=== PATIENT | male | born 1945 | race Caucasian/White ===

== ENCOUNTER 2017-09-21 13:14 | Emergency (ER) | payer MEDICARE, BC ==
[~2017-09-21] VITALS: Ht 172.7 cm; Wt 82.0 kg
[~2017-09-21 13:14] MED LIST: 1-ME1LIQ PO; ACET325 PO; BISA10R PR; CLON.1 PO; DESE1CRE TOP; ELDES PO; ENOX40P SQ; FAMO20TA2 PO; FOLI1TAB PO; MEMA5 PO; METO25 PO; METR-1 PO; MULTTAB4 PO; POTA-53 PO; PROT40TA PO; TAMS.4 PO; THIA100T PO
[2017-09-21 13:24] VITALS: BP 104/60; PULSE 85; RESP 16; TEMP 99; O2SAT 95
[2017-09-21 14:16] LABS: BILIRUBIN, URINE NEG (NEG); BLOOD, URINE NEG (NEG); GLUCOSE,URINE NEG (NEG); KETONE, URINE TRACE mg/dL (NEG); NITRITE,URINE NEG (NEG); URINE COLOR YELLOW (YELLW/STRAW); URINE LEUKOCYTE ESTERASE TRACE (NEG)
[2017-09-21 15:41] VITALS: PULSE 80; RESP 18; O2SAT 97
[2017-09-21] MEDS ORDERED: CARB25TA9 PO (15:41)
[2017-09-21] MEDS ORDERED: SIMV20TA PO (15:41)
[2017-09-21] MEDS ORDERED: AMLO5TAB2 PO (15:41)
[2017-09-21] MEDS ORDERED: ROPI2TAB PO ×2 (15:41)
[2017-09-21] MEDS ORDERED: TAMS0.4C4 (15:41)
--- NOTE | 2017-09-21 16:10 | PD ---
HPI Chief Complaint: Complaint Time Seen by Provider: 15:33 Travel History International Travel<30 days: No Contact w/Intl Traveler<30days: No Traveled to known affect area: No History of Present Illness HPI The patient is a 72-year-old male who presents to the emergency department with his for lethargy and generalized weakness. The states the patient had an elevated PSA and was referred to a urologist. The patient saw urologist in [place] on and underwent a cystoscopy. The states the patient has had decreased appetite with increasing lethargy since . She states the patient has fallen several times at home and she has had difficulty getting the patient up off of the floor. The states the patient has had decreased oral intake, decreased ability to ambulate , and slight confusion. The patient does have a history of Parkinson's disease and early dementia. The patient is a somewhat limited historian, most of the history is obtained from the . The states he went to an urgent care earlier today but were directed to come to the emergency department for further evaluation. The patient denies any headache, neck pain, chest pain, shortness breath, nausea, vomiting, or abdominal pain. Symptoms are moderate per the 's report. PFSH Past Medical History Anemia: Yes Anxiety: Yes Cancer: No Cerebrovascular Accident: No Diabetes: Yes (TYPE 2) Patient Takes Glucophage: No Endocrine: Yes Gastrointestinal Disorders: Yes (UPPER GI BLEED, ALCOHOLIC LIVER) GERD: Yes Genitourinary: Yes (UTI, BPH) Hypertension: Yes Immune Disorder: No Musculoskeletal: No Neurologic: Yes (DELERIUM TREMORS, ALCOHOL WITHRADAL, ENCEPHALOPATHY) Parkinson's Disease: Yes Respiratory: Yes (PE) Migraines: No Seizures: No Past Surgical History Abdominal Surgery: Yes (HERNIA) Cardiac Surgery: No Ear Surgery: No Endocrine Surgery: No Eye Surgery: No Genitourinary Surgery: No Oral Surgery: No Social History Alcohol Use: Yes Tobacco Use: No Substance Use: No Allergies-Medications (Allergen,Severity, Reaction): Coded Allergies: penicillin G (Unverified Allergy, Severe, 11/20/16) Reported Meds & Prescriptions Reported Meds & Active Scripts Active Flagyl (Metronidazole) 500 Mg Tab 500 Mg PO Q8 14 Days Namenda (Memantine HCl) 5 Mg Tab 5 Mg PO DAILY 30 Days 5 mg po daily x 1 week, then increase to 5 mg po bid x 1 week, then increase to 10 mg po bid Reported Tamsulosin (Tamsulosin HCl) 0.4 Mg Cap 0.4 Mg DAILY Carbidopa-Levodopa 25-100 Mg Tab 1 Tab PO Q8HR Ropinirole 2 Mg Tab 2 Mg PO HS Ropinirole 2 Mg Tab 2 Mg PO ONCE Simvastatin 20 Mg Tab 20 Mg PO DAILY Amlodipine (Amlodipine Besylate) 5 Mg Tab 5 Mg PO DAILY Thiamine HCl 100 Mg Tab 100 Mg PO DAILY Tamsulosin HCl 0.4 Mg Cap 0.4 Mg PO DAILY Potassium Chloride Chloride Pow 20 Meq PO BID Protonix (Pantoprazole Sodium) 40 Mg Tabdr 40 Mg PO DAILY Multivitamins (Multiple Vitamin) Tab 1 Tab PO DAILY Metoprolol Tartrate 25 mg (Metoprolol Tartrate) 25 Mg Tab 25 Mg PO BID Folate (Folic Acid) 1 Mg Tab 1 Mg PO DAILY Famotidine 20 Mg Tab 20 Mg PO BID Lovenox (Enoxaparin Sodium) 40 Mg/0.4 Ml Inj 40 Mg SQ DAILY UNGRADUATED PREFILLED SYRINGE Eldertonic (Vitamin B Complex/Minerals) 480 Ml Elx 15 Ml PO TID Clotrimazole 1 % Cre 1 Applic TOP Q12 APPLY TO SACRUM, GROIN & PERIANAL AREAS Catapres 0.1 mg (Clonidine HCl) 0.1 Mg Tab 0.1 Mg PO Q6 PRN Dulcolax 10 Mg Supp (Bisacodyl) [address] DAILY PRN 1-Methyl 2-Pyrrolidinone (1-Methyl 2-Pyrrolidone (Bulk)) 10 Mg Tab 10 Mg PO DAILY Tylenol (Acetaminophen) 325 Mg Tab 650 Mg PO Q4H PRN Review of Systems Except as stated in HPI: all other systems reviewed are Neg General / Constitutional: No: Fever HENT: No: Lightheadedness Cardiovascular: No: Chest Pain or Discomfort Respiratory: No: Shortness of Breath Gastrointestinal: No: Nausea, Vomiting, Abdominal Pain Genitourinary: Positive: Other (Dark-colored urine), No: Dysuria Musculoskeletal: Positive: Weakness Neurologic: Positive: Weakness, Change in Mentation, Other (History of Parkinson's disease) Physical Exam Narrative GENERAL: Awake, alert, pleasant 72-year-old male who appears his stated age and is in no acute respiratory distress. SKIN: Focused skin assessment warm/dry. HEAD: Atraumatic. Normocephalic. EYES: Pupils equal and round. 3 mm bilateral and reactive. ENT: No nasal bleeding or discharge. Slightly dry mucous membranes. NECK: Trachea midline. No JVD. CARDIOVASCULAR: Regular rate and rhythm. No murmur appreciated. RESPIRATORY: No accessory muscle use. Clear to auscultation. Breath sounds equal bilaterally. GASTROINTESTINAL: Abdomen soft, non-tender, nondistended. No rebound tenderness. MUSCULOSKELETAL: No obvious deformities. No clubbing. No cyanosis. No edema. Flexes the left hip and left knee without difficulty, limited range of motion of flexion the right hip and knee, but good strength against resistance. NEUROLOGICAL: Awake and alert. No obvious cranial nerve deficits. Motor grossly within normal limits. Normal speech. Masked facies. Mild cogwheel rigidity right lower extremity. Oriented to person and . Back: No tenderness over the thoracic or lumbar vertebrae. PSYCHIATRIC: Appropriate mood and affect; insight and judgment normal. Data Data Last Documented VS Vital Signs Date Time Temp Pulse Resp B/P (MAP) Pulse Ox O2 Delivery O2 Flow Rate FiO2 09/21/17 17:48 72 18 129/62 (84) 95 Room Air 09/21/17 13:24 99.0 Orders Orders Urinalysis - C+S If Indicated (09/21/17 13:30) Complete Blood Count With Diff (09/21/17 16:03) Comprehensive Metabolic Panel (09/21/17 16:03) Creatine Kinase (Cpk) (09/21/17 16:03) Troponin I (09/21/17 16:03) Thyroid Stimulating Hormone (09/21/17 16:03) Chest, Single Ap (09/21/17 16:03) Ct Brain W/O Iv Contrast(Rout) (09/21/17 16:03) Blood Glucose (09/21/17 16:03) Ecg Monitoring (09/21/17 16:03) Iv Access Insert/Monitor (09/21/17 16:03) Oximetry (09/21/17 16:03) Sodium Chloride 0.9% Flush (Ns Flush) (09/21/17 16:15) Alcohol (Ethanol) (09/21/17 16:03) Sodium Chlorid 0.9% 500 Ml Inj (Ns 500 M (09/21/17 16:15) Pelvis, Ap Only (Routine) (09/21/17 ) Lactic Acid (09/21/17 16:13) Blood Culture (09/21/17 16:51) CKMB (09/21/17 16:25) CKMB% (09/21/17 16:25) Ed Discharge Order (09/21/17 18:16) Labs Laboratory Tests Test 09/21/17 13:30 09/21/17 16:25 Urine Color YELLOW Urine Turbidity CLEAR Urine pH 6.0 Urine Specific [place] 1.010 Urine Protein NEG mg/dL Urine Glucose (UA) NEG mg/dL Urine Ketones TRACE mg/dL Urine Occult Blood NEG Urine Nitrite NEG Urine Bilirubin NEG Urine Urobilinogen LESS THAN 2 mg/dL Urine Leukocyte Esterase TRACE Urine RBC LESS THAN 1 /hpf Urine WBC 5 /hpf Microscopic Urinalysis Comment CULT NOT INDICATED White Blood Count 22.3 TH/MM3 Red Blood Count 5.21 MIL/MM3 Hemoglobin 15.5 GM/DL Hematocrit 46.4 % Mean Corpuscular Volume 89.1 FL Mean Corpuscular Hemoglobin 29.8 PG Mean Corpuscular Hemoglobin Concent 33.5 % Red Cell Distribution Width 13.7 % Platelet Count 301 TH/MM3 Mean Platelet Volume 8.1 FL Neutrophils (%) (Auto) 80.0 % Lymphocytes (%) (Auto) 8.0 % Monocytes (%) (Auto) 11.2 % Eosinophils (%) (Auto) 0.2 % Basophils (%) (Auto) 0.6 % Neutrophils # (Auto) 17.9 TH/MM3 Lymphocytes # (Auto) 1.8 TH/MM3 Monocytes # (Auto) 2.5 TH/MM3 Eosinophils # (Auto) 0.1 TH/MM3 Basophils # (Auto) 0.1 TH/MM3 CBC Comment AUTO DIFF Differential Comment AUTO DIFF CONFIRMED Blood Urea Nitrogen 10 MG/DL Creatinine 1.16 MG/DL Random Glucose 98 MG/DL Total Protein 8.1 GM/DL Albumin 3.9 GM/DL Calcium Level 8.9 MG/DL Alkaline Phosphatase 77 U/L Aspartate Amino Transf (AST/SGOT) 37 U/L Alanine Aminotransferase (ALT/SGPT) 14 U/L Total Bilirubin 1.6 MG/DL Sodium Level 132 MEQ/L Potassium Level 3.9 MEQ/L Chloride Level 97 MEQ/L Carbon Dioxide Level 23.7 MEQ/L Anion Gap 11 MEQ/L Estimat Glomerular Filtration Rate 62 ML/MIN Lactic Acid Level 1.7 mmol/L Total Creatine Kinase 547 U/L Creatine Kinase MB 2.2 NG/ML Creatine Kinase MB % 0.4 % Troponin I LESS THAN 0.02 NG/ML Thyroid Stimulating Hormone 3rd Gen 1.870 uIU/ML Ethyl Alcohol Level LESS THAN 3 MG/DL MDM Medical Decision Making Medical Screen Exam Complete: Yes Emergency Medical Condition: Yes Medical Record Reviewed: Yes Interpretation(s) EKG reveals normal sinus rhythm with a rate 82. Inverted T-wave in lead III. Laboratory Tests Test 09/21/17 13:30 09/21/17 16:25 Urine Color YELLOW Urine Turbidity CLEAR Urine pH 6.0 Urine Specific [place] 1.010 Urine Protein NEG mg/dL Urine Glucose (UA) NEG mg/dL Urine Ketones TRACE mg/dL Urine Occult Blood NEG Urine Nitrite NEG Urine Bilirubin NEG Urine Urobilinogen LESS THAN 2 mg/dL Urine Leukocyte Esterase TRACE Urine RBC LESS THAN 1 /hpf Urine WBC 5 /hpf Microscopic Urinalysis Comment CULT NOT INDICATED White Blood Count 22.3 TH/MM3 Red Blood Count 5.21 MIL/MM3 Hemoglobin 15.5 GM/DL Hematocrit 46.4 % Mean Corpuscular Volume 89.1 FL Mean Corpuscular Hemoglobin 29.8 PG Mean Corpuscular Hemoglobin Concent 33.5 % Red Cell Distribution Width 13.7 % Platelet Count 301 TH/MM3 Mean Platelet Volume 8.1 FL Neutrophils (%) (Auto) 80.0 % Lymphocytes (%) (Auto) 8.0 % Monocytes (%) (Auto) 11.2 % Eosinophils (%) (Auto) 0.2 % Basophils (%) (Auto) 0.6 % Neutrophils # (Auto) 17.9 TH/MM3 Lymphocytes # (Auto) 1.8 TH/MM3 Monocytes # (Auto) 2.5 TH/MM3 Eosinophils # (Auto) 0.1 TH/MM3 Basophils # (Auto) 0.1 TH/MM3 CBC Comment AUTO DIFF Differential Comment AUTO DIFF CONFIRMED Blood Urea Nitrogen 10 MG/DL Creatinine 1.16 MG/DL Random Glucose 98 MG/DL Total Protein 8.1 GM/DL Albumin 3.9 GM/DL Calcium Level 8.9 MG/DL Alkaline Phosphatase 77 U/L Aspartate Amino Transf (AST/SGOT) 37 U/L Alanine Aminotransferase (ALT/SGPT) 14 U/L Total Bilirubin 1.6 MG/DL Sodium Level 132 MEQ/L Potassium Level 3.9 MEQ/L Chloride Level 97 MEQ/L Carbon Dioxide Level 23.7 MEQ/L Anion Gap 11 MEQ/L Estimat Glomerular Filtration Rate 62 ML/MIN Lactic Acid Level 1.7 mmol/L Total Creatine Kinase 547 U/L Creatine Kinase MB 2.2 NG/ML Creatine Kinase MB % 0.4 % Troponin I LESS THAN 0.02 NG/ML Thyroid Stimulating Hormone 3rd Gen 1.870 uIU/ML Ethyl Alcohol Level LESS THAN 3 MG/DL Differential Diagnosis Differential diagnosis includes UTI, delirium, acute kidney injury, dehydration , anesthesia side effect, subdural hemorrhage, pelvic fracture, hyponatremia. Narrative Course IV was established, labs are drawn and sent, and the patient was placed on cardiac telemetry monitoring and continuous pulse oximetry monitoring. UA was sent to lab, unremarkable, no evidence of UTI. The patient's white count is mildly elevated at 22.3, lactic acid is unremarkable. CMP is essentially unremarkable except for sodium of 132. Chest x-ray is negative, no evidence of pneumonia. Pelvic x-rays unremarkable, no evidence of fracture. CT the brain is negative, no evidence of subdural. The patient's vitals are unremarkable, no fever, no tachycardia, exam is benign. Cultures are pending, the patient is stable for outpatient follow-up. The will be provided a copy of the labs and CT results at discharge. Diagnosis Primary Impression: Generalized weakness Additional Impression: Leukocytosis Qualified Codes: D72.829 - Elevated white blood cell count, unspecified Patient Instructions: General Instructions Additional Instructions: Follow-up with your primary physician. Please provide the patient and his a copy of the CT results, x-ray results, and lab results at discharge. Return if symptoms worsen or progress. Med/Other Pt SpecificInfo: Prescription(s) given, No Change to Meds Disposition: 01 DISCHARGE HOME Condition: Stable Morales Lim MD Sep 21, 2017 16:09
[2017-09-21] MEDS ORDERED: SODIUM CHLORID 0.9% 500 ML INJ 500 ML IV ONE (16:15)
[2017-09-21] MEDS ORDERED: SODIUM CHLORIDE 0.9% FLUSH 10 ML FLUSH IV FLUSH PRN (16:15)
[2017-09-21 16:22] VITALS: RESP 14; O2SAT 95
--- NOTE | 2017-09-21 16:33 | RADRPT ---
EXAM DATE: 09/21/2017 4:30 PM EDT AGE/SEX: 72 years / Male INDICATIONS: Pain from fall on right hip. CLINICAL DATA: This is the patient's initial encounter. Patient reports that signs and symptoms have been present for 1 day and indicates a pain score of Nonresponsive. MEDICAL/SURGICAL HISTORY: Non-responsive. Non-responsive. COMPARISON: No prior exams available for comparison. FINDINGS: Examination of the pelvis demonstrates no evidence of fracture or dislocation. Bony mineralization i s normal. There is no widening of the sacroiliac joints. No foreign body is identified. CONCLUSION: No acute findings. Mild osteoarthritis of the hips. Electronically signed by: Estuardo Swift MD 09/21/2017 4:32 PM EDT
--- NOTE | 2017-09-21 16:33 | RADRPT ---
EXAM DATE: 09/21/2017 4:29 PM EDT AGE/SEX: 72 years / Male INDICATIONS: Shortness of breath. CLINICAL DATA: This is the patient's initial encounter. Patient reports that signs and symptoms have been present for 1 day and indicates a pain score of Nonresponsive. MEDICAL/SURGICAL HISTORY: Non-responsive. Non-responsive. COMPARISON: [facility] [place], CHEST SINGLE AP, 08/30/2014. . FINDINGS: A single AP view of the chest demonstrates the lungs to be symmetrically aerated without evidence of mass, infiltrate or effusion. Mild basilar atelectasis. The cardiomediastinal contours are unremarkab le. Osseous structures are intact. CONCLUSION: Mild basilar atelectasis. No effusion or pneumothorax. Electronically signed by: Estuardo Swift MD 09/21/2017 4:31 PM EDT
[2017-09-21 16:47] LABS: AUTOMATED NEUTROPHIL # 17.9 TH/MM3 (1.8-7.7); BASOPHIL # 0.1 TH/MM3 (0-0.2); BASOPHIL % 0.6 % (0.0-2.0); EOSINOPHIL # 0.1 TH/MM3 (0-0.4); EOSINOPHIL % 0.2 % (0.0-4.0); HEMATOCRIT 46.4 % (39.0-51.0); HEMOGLOBIN 15.5 GM/DL (13.0-17.0); LYMPHOCYTE # 1.8 TH/MM3 (1.0-4.8); MEAN CELL VOLUME 89.1 FL (80.0-100.0); MEAN CORPUSCULAR HEMOGLOBIN 29.8 PG (27.0-34.0); MEAN CORPUSCULAR HGB CONC 33.5 % (32.0-36.0); MEAN PLATELET VOLUME 8.1 FL (7.0-11.0); MONO % 11.2 % (0.0-8.0); MONOCYTE # 2.5 TH/MM3 (0-0.9); PLATELET COUNT 301 TH/MM3 (150-450); RED BLOOD COUNT 5.21 MIL/MM3 (4.50-5.90); RED CELL DISTRIBUTION WIDTH 13.7 % (11.6-17.2); WHITE BLOOD COUNT 22.3 TH/MM3 (4.0-11.0)
[2017-09-21 17:07] LABS: ALBUMIN 3.9 GM/DL (3.4-5.0); ALT (GPT) 14 U/L (12-78); AST (GOT) 37 U/L (15-37); BICARBONATE 23.7 MEQ/L (21.0-32.0); BLOOD UREA NITROGEN 10 MG/DL (7-18); CALCIUM 8.9 MG/DL (8.5-10.1); CHLORIDE 97 MEQ/L (98-107); CREATININE 1.16 MG/DL (0.60-1.30); GLOMERULAR FILTRATION RATE 62 ML/MIN (>89); GLUCOSE,RANDOM 98 MG/DL (74-106); SODIUM (NA) 132 MEQ/L (136-145)
[2017-09-21 17:17] LABS: ALKALINE PHOSPHATASE 77 U/L (45-117); TOTAL BILIRUBIN ADULT 1.6 MG/DL (0.2-1.0); TOTAL PROTEIN 8.1 GM/DL (6.4-8.2); TROPONIN I LESS THAN 0.02 NG/ML (0.02-0.05)
[2017-09-21 17:48] VITALS: BP 129/62; PULSE 72; RESP 18; O2SAT 95
--- NOTE | 2017-09-21 17:58 | RADRPT ---
EXAM DATE: 09/21/2017 5:43 PM EDT AGE/SEX: 72 years / Male INDICATIONS: Patient with Parkinson, new loss of appetite and inability to walk CLINICAL DATA: This is the patient's initial encounter. Patient reports that signs and symptoms have been present for 1 day and indicates a pain score of 0/10. MEDICAL/SURGICAL HISTORY: Hypertension. Diabetes. None. RADIATION DOSE: 40.52 CTDI (mGy) COMPARISON: . TECHNIQUE: CT of the head without contrast. Using automated exposure control and adjustment of the mA and/or kV according to patient size, radiation dose was kept as low as reasonably achievable to ob tain optimal diagnostic quality images. FINDINGS: Cerebrum: The ventricles are normal for age. No evidence of midline shift, mass lesion, hemorrhage or acute infarction. No extraaxial fluid collections are seen. Posterior Fossa: The cerebellum and brainstem are intact. The 4th ventricle is midline. The cerebe llopontine angle is unremarkable. Extracranial: The visualized portion of the orbits is intact. Skull: The calvaria is intact. No evidence of skull fracture. CONCLUSION: 1. No acute intracranial abnormality. Electronically signed by: Estuardo Swift MD 09/21/2017 5:57 PM EDT
--- NOTE | 2017-09-22 14:00 | EKG ---
Date Performed: 09/21/2017 Time Performed: 14:40:10 PTAGE: 72 years EKG: Sinus rhythm MARKED LEFT AXIS DEVIATION ABNORMAL ECG PREVIOUS TRACING : 08/30/2014 09.00 Since the previous tracing, no significant change noted DOCTOR: Humza Lockhart Interpretating Date/Time 09/22/2017 13:54:43
== END 2017-09-21 19:42 | disposition home or self-care (01) ==
LOC: NEPC 13:14
DX: R53.1 Weakness (principal); D72.829 Elevated white blood cell count, unspecified; D64.9 Anemia, unspecified; R94.31 Abnormal electrocardiogram [ECG] [EKG]; M16.11 Unilateral primary osteoarthritis, right hip; E11.9 Type 2 diabetes mellitus without complications; K21.9 Gastro-esophageal reflux disease without esophagitis; N40.0 Benign prostatic hyperplasia without lower urinary tract symptoms; I10 Essential (primary) hypertension; G20 Parkinson's disease; Z87.440 Personal history of urinary (tract) infections; Z79.899 Other long term (current) drug therapy; Z88.0 Allergy status to penicillin
CPT/HCPCS: 70450; 71045; 72170; 80053; 80307; 81001; 82550; 82552; 83605; 84443; 84484; 85025; 87040; 93005; 96360; 99285; J7040

== ENCOUNTER 2018-02-02 00:33 | Inpatient (IN) ==
[2018-02-02] MEDS ORDERED: Acetaminophen 325 MG Tablet PO ONE (01:30)
[2018-02-02] MEDS ORDERED: Sod Chloride 0.9% Inj 1,000 ML IV.SIG SCH ×2 (01:30→02:15)
--- NOTE | 2018-02-02 01:59 | ED ---
HPI General Chief complaint: Respiratory Symptoms Stated complaint: Sob Time Seen by Provider: 02/02/18 01:12 Source: family Mode of arrival: wheelchair Limitations: other (Parkinson's) History of Present Illness HPI narrative: 73-year-old male with significant history of Parkinson's was recently diagnosed with prostate cancer. Last Saturday which was 5 days ago patient had seeds put in his prostate by his urologist at [place]. Yesterday from 6 PM onwards his noticed that he was having difficulty walking and was frequently urinating. There was no urinary incontinence and his had to get him the urinal. Eventually she decided to bring him to the emergency room. The is having trouble giving a good history due to possibility of dementia. Patient is not a good historian given his neurological issues. He was tachycardic upon arrival. He was tachypneic as well. Rectal temperature was 102.8. The was concerned if he got infection from the procedure. She said that prior to the procedure he had received 2 doses of antibiotics. Onset (ago): hour(s) Related Data Home Medications Medication Instructions Recorded Confirmed amlodipine 5 mg PO DAILY 02/02/18 02/02/18 carbidopa-levodopa 1 tab PO TID 02/02/18 02/02/18 ropinirole 2 mg PO TID 02/02/18 02/02/18 simvastatin 20 mg PO QPM 02/02/18 02/02/18 tamsulosin 0.4 mg PO BID 02/02/18 02/02/18 Allergies Allergy/AdvReac Type Severity Reaction Status Date / Time penicillin G Allergy Severe Hives Unverified 02/02/18 00:38 Review of Systems ROS Unobtainable ROS Unobtainable: unobtainable due to mental condition ROS: all other systems reviewed are negative Genitourinary Reports urinary frequency [facility] Medical History Medical History Parkinsons (Acute) Social History Social History Substance History: No History of Abuse Second Hand Smoke Exposure: No Smoking Status: Never smoker How Often Do You Have a Drink Containing Alcohol: Never Recent Travel in [facility] within the Last 8 Weeks: No Recent Out of Country Travel within the Last 8 Weeks: No Immunization History Tetanus Immunization: Unsure Exam Narrative Exam Narrative: GENERAL: Awake, moderate distress, trouble speaking SKIN: Focused skin assessment warm/dry. Flushed HEAD: Atraumatic. Normocephalic. EYES: Pupils equal and round. No scleral icterus. No injection or drainage. ENT: No nasal bleeding or discharge. Mucous membranes pink and moist. NECK: Trachea midline. No JVD. CARDIOVASCULAR: Regular rate and rhythm. No murmur appreciated. RESPIRATORY: No accessory muscle use. Clear to auscultation. Breath sounds equal bilaterally. GASTROINTESTINAL: Abdomen soft, non-tender, nondistended. Hepatic and splenic margins not palpable. MUSCULOSKELETAL: No obvious deformities. No clubbing. No cyanosis. No edema. NEUROLOGICAL: Awake and alert. No obvious cranial nerve deficits. Motor rigidity. Stuttering and echolalia. PSYCHIATRIC: Appropriate mood and affect; insight and judgment normal. Course Initial Documented Vital Signs Temperature 98.2 F 02/02/18 00:34 Pulse Rate 125 H 02/02/18 00:34 Respiratory Rate 30 H 02/02/18 00:34 Pulse Oximetry 99 02/02/18 00:34 Last Documented Vital Signs Temperature 97.4 F L 02/05/18 20:00 Pulse Rate 76 02/05/18 20:00 Respiratory Rate 17 02/05/18 20:00 Blood Pressure 161/65 H 02/05/18 20:00 Pulse Oximetry 96 02/05/18 20:00 Critical Care Time Critical Care Time: Yes Total Critical Care Time: 30 Attestation: Aggregate critical care time was 30 minutes. Time to perform other separately billable procedures was not included in the critical care time. My time did not include minutes spent treating any other patients simultaneously or on activities that did not directly contribute to the patient's treatment. The services I provided to this patient were to treat and/or prevent clinically significant deterioration that could result in: Sepsis, sepsis care protocol I provided critical care services requiring my management, as noted below: Chart data review, documentation time, medication orders and management, vital sign assessments/reviewing monitor data, ordering and reviewing lab tests, ordering and interpreting/reviewing x-rays and diagnostic studies, care of the patient and discussion of the patient with the admitting physicians. Medical Decision Making MDM Narrative Medical decision making narrative: 3:25 AM blood test results are back and patient has leukocytosis with left shift. Lactic acid is 2.0. UA suggestive of UTI. Patient was given 2 L of IV fluid bolus, Tylenol for the fever and IV Zosyn and vancomycin. Awaiting for a CAT scan of the abdomen and pelvis to be resulted. Patient will require admission. Medical Screen Exam Complete: Yes Emergency Medical Condition: Yes Lab Data Result diagrams: 02/05/18 09:32 02/05/18 09:32 Lab Results 02/02/18 02/02/18 02/02/18 Range/Units 01:35 01:44 01:44 WBC 16.2 H (4.0-11.0) th/mm3 RBC 5.41 (4.50-5.90) mil/mm3 Hgb 17.1 H (13.0-17.0) gm/dL Hct 48.5 (39.0-51.0) % MCV 89.7 (80.0-100.0) fL MCH 31.7 (27.0-34.0) pg MCHC 35.3 (32.0-36.0) % RDW 14.3 (11.6-17.2) % Plt Count 270 (150-450) th/mm3 MPV 8.0 (7.0-11.0) fL Neut % (Auto) 88.6 H (16.0-70.0) % Lymph % (Auto) 5.7 L (9.0-44.0) % Randall % (Auto) 5.2 (0.0-8.0) % Eos % (Auto) 0.1 (0.0-4.0) % Baso % (Auto) 0.4 (0.0-2.0) % Neut # (Auto) 14.3 H (1.8-7.7) th/mm3 Lymph # (Auto) 0.9 L (1.0-4.8) th/mm3 Randall # (Auto) 0.8 (0.0-0.9) th/mm3 Eos # (Auto) 0.0 (0.0-0.4) th/mm3 Baso # (Auto) 0.1 (0.0-0.2) th/mm3 WBC Differential . Differential Comment Auto diff final Puncture Site Patient Temperature O2 Saturation (90-100) % ABG pH (7.380-7.420) ABG pCO2 (38-42) mmHg ABG pO2 (61-120) mmHg ABG HCO3 (22-26) mmol/L ABG O2 Content (12.0-20.0) Vol % ABG Base Excess (-2-2) mmol/L ABG Methemoglobin (0-2) % [place] Test Hemoglobin (12.0-16.0) G/DL Carboxyhemoglobin (0-4) % O2 Delivery Device Liter Flow L/M Critical Value Sodium (136-145) meq/L Potassium (3.5-5.1) meq/L Chloride (98-107) meq/L Carbon Dioxide (21.0-32.0) meq/L Anion Gap (5-15) meq/L BUN (7-18) mg/dL Creatinine (0.60-1.30) mg/dL Estimated GFR (>89) mL/min POC Glucose (68-110) mg/dl Random Glucose (74-106) mg/dL Hemoglobin A1c (4.3-6.0) % Lactic Acid 2.0 (0.4-2.0) mmol/L Calcium (8.5-10.1) mg/dL Magnesium (1.5-2.5) mg/dL Total Bilirubin (0.2-1.0) mg/dL AST (15-37) U/L ALT (12-78) U/L Alkaline Phosphatase (45-117) U/L Ammonia (11-32) mcmol/L Total Creatine Kinase (39-308) U/L CK-MB (CK-2) (0.5-3.6) ng/mL CK-MB (CK-2) % (0.0-4.0) % Total Protein (6.4-8.2) g/dL Albumin (3.4-5.0) g/dL Vitamin B12 (193-986) pg/mL TSH (0.358-3.740) uIU/mL Urine Color Yellow (Yellw/Straw) Urine Clarity Hazy H (Clear) Urine pH 6.0 (5.0-8.5) Ur Specific [place] 1.012 (1.002-1.035) Urine Protein Negative (Neg-Trace) mg/dL Urine Glucose (UA) Negative (Negative) mg/dL Urine Ketones Negative (Negative) mg/dL Urine Occult Blood Large H (Negative) Urine Nitrate Negative (Negative) Urine Bilirubin Negative (Negative) Urine Urobilinogen Less than 2 (Less than 2) mg/dL Ur Leukocyte Esterase Moderate H (Negative) Urine RBC 4 H (0-3) /hpf Urine WBC 88 H (0-5) /hpf Ur Renal Epithelial Cell 11 (None) /hpf Granular Casts (None) /lpf Urine Mucus Few H (Occasional) /lpf Micro UA Comment Culture indicated Ur Microscopic Review Not Reportable Urine Culture Comments Culture indicated Vancomycin Trough (5.0-10.0) mcg/mL 02/02/18 02/02/18 02/02/18 Range/Units 01:44 02:14 04:21 WBC (4.0-11.0) th/mm3 RBC (4.50-5.90) mil/mm3 Hgb (13.0-17.0) gm/dL Hct (39.0-51.0) % MCV (80.0-100.0) fL MCH (27.0-34.0) pg MCHC (32.0-36.0) % RDW (11.6-17.2) % Plt Count (150-450) th/mm3 MPV (7.0-11.0) fL Neut % (Auto) (16.0-70.0) % Lymph % (Auto) (9.0-44.0) % Randall % (Auto) (0.0-8.0) % Eos % (Auto) (0.0-4.0) % Baso % (Auto) (0.0-2.0) % Neut # (Auto) (1.8-7.7) th/mm3 Lymph # (Auto) (1.0-4.8) th/mm3 Randall # (Auto) (0.0-0.9) th/mm3 Eos # (Auto) (0.0-0.4) th/mm3 Baso # (Auto) (0.0-0.2) th/mm3 WBC Differential Differential Comment Puncture Site Patient Temperature O2 Saturation (90-100) % ABG pH (7.380-7.420) ABG pCO2 (38-42) mmHg ABG pO2 (61-120) mmHg ABG HCO3 (22-26) mmol/L ABG O2 Content (12.0-20.0) Vol % ABG Base Excess (-2-2) mmol/L ABG Methemoglobin (0-2) % [place] Test Hemoglobin (12.0-16.0) G/DL Carboxyhemoglobin (0-4) % O2 Delivery Device Liter Flow L/M Critical Value Sodium 138 (136-145) meq/L Potassium 3.8 (3.5-5.1) meq/L Chloride 107 (98-107) meq/L Carbon Dioxide 22.4 (21.0-32.0) meq/L Anion Gap 9 (5-15) meq/L BUN 13 (7-18) mg/dL Creatinine 1.00 (0.60-1.30) mg/dL Estimated GFR 74 L (>89) mL/min POC Glucose 128 H (68-110) mg/dl Random Glucose 107 H (74-106) mg/dL Hemoglobin A1c 6.0 (4.3-6.0) % Lactic Acid (0.4-2.0) mmol/L Calcium 8.3 L (8.5-10.1) mg/dL Magnesium 1.7 (1.5-2.5) mg/dL Total Bilirubin 1.1 H (0.2-1.0) mg/dL AST 28 (15-37) U/L ALT 33 (12-78) U/L Alkaline Phosphatase 73 (45-117) U/L Ammonia (11-32) mcmol/L Total Creatine Kinase (39-308) U/L CK-MB (CK-2) (0.5-3.6) ng/mL CK-MB (CK-2) % (0.0-4.0) % Total Protein 7.2 (6.4-8.2) g/dL Albumin 3.7 (3.4-5.0) g/dL Vitamin B12 (193-986) pg/mL TSH (0.358-3.740) uIU/mL Urine Color (Yellw/Straw) Urine Clarity (Clear) Urine pH (5.0-8.5) Ur Specific [place] (1.002-1.035) Urine Protein (Neg-Trace) mg/dL Urine Glucose (UA) (Negative) mg/dL Urine Ketones (Negative) mg/dL Urine Occult Blood (Negative) Urine Nitrate (Negative) Urine Bilirubin (Negative) Urine Urobilinogen (Less than 2) mg/dL Ur Leukocyte Esterase (Negative) Urine RBC (0-3) /hpf Urine WBC (0-5) /hpf Ur Renal Epithelial Cell (None) /hpf Granular Casts (None) /lpf Urine Mucus (Occasional) /lpf Micro UA Comment Ur Microscopic Review Urine Culture Comments Vancomycin Trough (5.0-10.0) mcg/mL 02/02/18 02/02/18 02/02/18 Range/Units 12:10 18:06 19:37 WBC (4.0-11.0) th/mm3 RBC (4.50-5.90) mil/mm3 Hgb (13.0-17.0) gm/dL Hct (39.0-51.0) % MCV (80.0-100.0) fL MCH (27.0-34.0) pg MCHC (32.0-36.0) % RDW (11.6-17.2) % Plt Count (150-450) th/mm3 MPV (7.0-11.0) fL Neut % (Auto) (16.0-70.0) % Lymph % (Auto) (9.0-44.0) % Randall % (Auto) (0.0-8.0) % Eos % (Auto) (0.0-4.0) % Baso % (Auto) (0.0-2.0) % Neut # (Auto) (1.8-7.7) th/mm3 Lymph # (Auto) (1.0-4.8) th/mm3 Randall # (Auto) (0.0-0.9) th/mm3 Eos # (Auto) (0.0-0.4) th/mm3 Baso # (Auto) (0.0-0.2) th/mm3 WBC Differential Differential Comment Puncture Site Patient Temperature O2 Saturation (90-100) % ABG pH (7.380-7.420) ABG pCO2 (38-42) mmHg ABG pO2 (61-120) mmHg ABG HCO3 (22-26) mmol/L ABG O2 Content (12.0-20.0) Vol % ABG Base Excess (-2-2) mmol/L ABG Methemoglobin (0-2) % [place] Test Hemoglobin (12.0-16.0) G/DL Carboxyhemoglobin (0-4) % O2 Delivery Device Liter Flow L/M Critical Value Sodium (136-145) meq/L Potassium (3.5-5.1) meq/L Chloride (98-107) meq/L Carbon Dioxide (21.0-32.0) meq/L Anion Gap (5-15) meq/L BUN (7-18) mg/dL Creatinine (0.60-1.30) mg/dL Estimated GFR (>89) mL/min POC Glucose 108 119 H 120 H (68-110) mg/dl Random Glucose (74-106) mg/dL Hemoglobin A1c (4.3-6.0) % Lactic Acid (0.4-2.0) mmol/L Calcium (8.5-10.1) mg/dL Magnesium (1.5-2.5) mg/dL Total Bilirubin (0.2-1.0) mg/dL AST (15-37) U/L ALT (12-78) U/L Alkaline Phosphatase (45-117) U/L Ammonia (11-32) mcmol/L Total Creatine Kinase (39-308) U/L CK-MB (CK-2) (0.5-3.6) ng/mL CK-MB (CK-2) % (0.0-4.0) % Total Protein (6.4-8.2) g/dL Albumin (3.4-5.0) g/dL Vitamin B12 (193-986) pg/mL TSH (0.358-3.740) uIU/mL Urine Color (Yellw/Straw) Urine Clarity (Clear) Urine pH (5.0-8.5) Ur Specific [place] (1.002-1.035) Urine Protein (Neg-Trace) mg/dL Urine Glucose (UA) (Negative) mg/dL Urine Ketones (Negative) mg/dL Urine Occult Blood (Negative) Urine Nitrate (Negative) Urine Bilirubin (Negative) Urine Urobilinogen (Less than 2) mg/dL Ur Leukocyte Esterase (Negative) Urine RBC (0-3) /hpf Urine WBC (0-5) /hpf Ur Renal Epithelial Cell (None) /hpf Granular Casts (None) /lpf Urine Mucus (Occasional) /lpf Micro UA Comment Ur Microscopic Review Urine Culture Comments Vancomycin Trough (5.0-10.0) mcg/mL 02/03/18 02/03/18 02/03/18 Range/Units 06:25 06:25 08:43 WBC 12.2 H (4.0-11.0) th/mm3 RBC 4.85 (4.50-5.90) mil/mm3 Hgb 15.3 (13.0-17.0) gm/dL Hct 44.6 (39.0-51.0) % MCV 92.0 (80.0-100.0) fL MCH 31.5 (27.0-34.0) pg MCHC 34.2 (32.0-36.0) % RDW 14.2 (11.6-17.2) % Plt Count 236 (150-450) th/mm3 MPV 7.5 (7.0-11.0) fL Neut % (Auto) 76.9 H (16.0-70.0) % Lymph % (Auto) 9.7 (9.0-44.0) % Randall % (Auto) 12.4 H (0.0-8.0) % Eos % (Auto) 0.3 (0.0-4.0) % Baso % (Auto) 0.7 (0.0-2.0) % Neut # (Auto) 9.4 H (1.8-7.7) th/mm3 Lymph # (Auto) 1.2 (1.0-4.8) th/mm3 Randall # (Auto) 1.5 H (0.0-0.9) th/mm3 Eos # (Auto) 0.0 (0.0-0.4) th/mm3 Baso # (Auto) 0.1 (0.0-0.2) th/mm3 WBC Differential . Differential Comment Auto diff final Puncture Site Patient Temperature O2 Saturation (90-100) % ABG pH (7.380-7.420) ABG pCO2 (38-42) mmHg ABG pO2 (61-120) mmHg ABG HCO3 (22-26) mmol/L ABG O2 Content (12.0-20.0) Vol % ABG Base Excess (-2-2) mmol/L ABG Methemoglobin (0-2) % [place] Test Hemoglobin (12.0-16.0) G/DL Carboxyhemoglobin (0-4) % O2 Delivery Device Liter Flow L/M Critical Value Sodium 139 (136-145) meq/L Potassium 3.7 (3.5-5.1) meq/L Chloride 109 H (98-107) meq/L Carbon Dioxide 20.3 L (21.0-32.0) meq/L Anion Gap 10 (5-15) meq/L BUN 11 (7-18) mg/dL Creatinine 0.89 (0.60-1.30) mg/dL Estimated GFR 84 L (>89) mL/min POC Glucose 94 (68-110) mg/dl Random Glucose 89 (74-106) mg/dL Hemoglobin A1c (4.3-6.0) % Lactic Acid (0.4-2.0) mmol/L Calcium 8.4 L (8.5-10.1) mg/dL Magnesium (1.5-2.5) mg/dL Total Bilirubin (0.2-1.0) mg/dL AST (15-37) U/L ALT (12-78) U/L Alkaline Phosphatase (45-117) U/L Ammonia (11-32) mcmol/L Total Creatine Kinase (39-308) U/L CK-MB (CK-2) (0.5-3.6) ng/mL CK-MB (CK-2) % (0.0-4.0) % Total Protein (6.4-8.2) g/dL Albumin (3.4-5.0) g/dL Vitamin B12 (193-986) pg/mL TSH (0.358-3.740) uIU/mL Urine Color (Yellw/Straw) Urine Clarity (Clear) Urine pH (5.0-8.5) Ur Specific [place] (1.002-1.035) Urine Protein (Neg-Trace) mg/dL Urine Glucose (UA) (Negative) mg/dL Urine Ketones (Negative) mg/dL Urine Occult Blood (Negative) Urine Nitrate (Negative) Urine Bilirubin (Negative) Urine Urobilinogen (Less than 2) mg/dL Ur Leukocyte Esterase (Negative) Urine RBC (0-3) /hpf Urine WBC (0-5) /hpf Ur Renal Epithelial Cell (None) /hpf Granular Casts (None) /lpf Urine Mucus (Occasional) /lpf Micro UA Comment Ur Microscopic Review Urine Culture Comments Vancomycin Trough (5.0-10.0) mcg/mL 02/03/18 02/03/18 02/03/18 Range/Units 12:16 17:00 19:59 WBC (4.0-11.0) th/mm3 RBC (4.50-5.90) mil/mm3 Hgb (13.0-17.0) gm/dL Hct (39.0-51.0) % MCV (80.0-100.0) fL MCH (27.0-34.0) pg MCHC (32.0-36.0) % RDW (11.6-17.2) % Plt Count (150-450) th/mm3 MPV (7.0-11.0) fL Neut % (Auto) (16.0-70.0) % Lymph % (Auto) (9.0-44.0) % Randall % (Auto) (0.0-8.0) % Eos % (Auto) (0.0-4.0) % Baso % (Auto) (0.0-2.0) % Neut # (Auto) (1.8-7.7) th/mm3 Lymph # (Auto) (1.0-4.8) th/mm3 Randall # (Auto) (0.0-0.9) th/mm3 Eos # (Auto) (0.0-0.4) th/mm3 Baso # (Auto) (0.0-0.2) th/mm3 WBC Differential Differential Comment Puncture Site Patient Temperature O2 Saturation (90-100) % ABG pH (7.380-7.420) ABG pCO2 (38-42) mmHg ABG pO2 (61-120) mmHg ABG HCO3 (22-26) mmol/L ABG O2 Content (12.0-20.0) Vol % ABG Base Excess (-2-2) mmol/L ABG Methemoglobin (0-2) % [place] Test Hemoglobin (12.0-16.0) G/DL Carboxyhemoglobin (0-4) % O2 Delivery Device Liter Flow L/M Critical Value Sodium (136-145) meq/L Potassium (3.5-5.1) meq/L Chloride (98-107) meq/L Carbon Dioxide (21.0-32.0) meq/L Anion Gap (5-15) meq/L BUN (7-18) mg/dL Creatinine (0.60-1.30) mg/dL Estimated GFR (>89) mL/min POC Glucose 116 H 107 135 H (68-110) mg/dl Random Glucose (74-106) mg/dL Hemoglobin A1c (4.3-6.0) % Lactic Acid (0.4-2.0) mmol/L Calcium (8.5-10.1) mg/dL Magnesium (1.5-2.5) mg/dL Total Bilirubin (0.2-1.0) mg/dL AST (15-37) U/L ALT (12-78) U/L Alkaline Phosphatase (45-117) U/L Ammonia (11-32) mcmol/L Total Creatine Kinase (39-308) U/L CK-MB (CK-2) (0.5-3.6) ng/mL CK-MB (CK-2) % (0.0-4.0) % Total Protein (6.4-8.2) g/dL Albumin (3.4-5.0) g/dL Vitamin B12 (193-986) pg/mL TSH (0.358-3.740) uIU/mL Urine Color (Yellw/Straw) Urine Clarity (Clear) Urine pH (5.0-8.5) Ur Specific [place] (1.002-1.035) Urine Protein (Neg-Trace) mg/dL Urine Glucose (UA) (Negative) mg/dL Urine Ketones (Negative) mg/dL Urine Occult Blood (Negative) Urine Nitrate (Negative) Urine Bilirubin (Negative) Urine Urobilinogen (Less than 2) mg/dL Ur Leukocyte Esterase (Negative) Urine RBC (0-3) /hpf Urine WBC (0-5) /hpf Ur Renal Epithelial Cell (None) /hpf Granular Casts (None) /lpf Urine Mucus (Occasional) /lpf Micro UA Comment Ur Microscopic Review Urine Culture Comments Vancomycin Trough (5.0-10.0) mcg/mL 02/04/18 02/04/18 02/04/18 Range/Units 07:22 07:50 14:46 WBC (4.0-11.0) th/mm3 RBC (4.50-5.90) mil/mm3 Hgb (13.0-17.0) gm/dL Hct (39.0-51.0) % MCV (80.0-100.0) fL MCH (27.0-34.0) pg MCHC (32.0-36.0) % RDW (11.6-17.2) % Plt Count (150-450) th/mm3 MPV (7.0-11.0) fL Neut % (Auto) (16.0-70.0) % Lymph % (Auto) (9.0-44.0) % Randall % (Auto) (0.0-8.0) % Eos % (Auto) (0.0-4.0) % Baso % (Auto) (0.0-2.0) % Neut # (Auto) (1.8-7.7) th/mm3 Lymph # (Auto) (1.0-4.8) th/mm3 Randall # (Auto) (0.0-0.9) th/mm3 Eos # (Auto) (0.0-0.4) th/mm3 Baso # (Auto) (0.0-0.2) th/mm3 WBC Differential Differential Comment Puncture Site Patient Temperature O2 Saturation (90-100) % ABG pH (7.380-7.420) ABG pCO2 (38-42) mmHg ABG pO2 (61-120) mmHg ABG HCO3 (22-26) mmol/L ABG O2 Content (12.0-20.0) Vol % ABG Base Excess (-2-2) mmol/L ABG Methemoglobin (0-2) % [place] Test Hemoglobin (12.0-16.0) G/DL Carboxyhemoglobin (0-4) % O2 Delivery Device Liter Flow L/M Critical Value Sodium (136-145) meq/L Potassium (3.5-5.1) meq/L Chloride (98-107) meq/L Carbon Dioxide (21.0-32.0) meq/L Anion Gap (5-15) meq/L BUN (7-18) mg/dL Creatinine (0.60-1.30) mg/dL Estimated GFR (>89) mL/min POC Glucose 101 (68-110) mg/dl Random Glucose (74-106) mg/dL Hemoglobin A1c (4.3-6.0) % Lactic Acid (0.4-2.0) mmol/L Calcium (8.5-10.1) mg/dL Magnesium (1.5-2.5) mg/dL Total Bilirubin (0.2-1.0) mg/dL AST (15-37) U/L ALT (12-78) U/L Alkaline Phosphatase (45-117) U/L Ammonia 17 (11-32) mcmol/L Total Creatine Kinase (39-308) U/L CK-MB (CK-2) (0.5-3.6) ng/mL CK-MB (CK-2) % (0.0-4.0) % Total Protein (6.4-8.2) g/dL Albumin (3.4-5.0) g/dL Vitamin B12 (193-986) pg/mL TSH (0.358-3.740) uIU/mL Urine Color (Yellw/Straw) Urine Clarity (Clear) Urine pH (5.0-8.5) Ur Specific [place] (1.002-1.035) Urine Protein (Neg-Trace) mg/dL Urine Glucose (UA) (Negative) mg/dL Urine Ketones (Negative) mg/dL Urine Occult Blood (Negative) Urine Nitrate (Negative) Urine Bilirubin (Negative) Urine Urobilinogen (Less than 2) mg/dL Ur Leukocyte Esterase (Negative) Urine RBC (0-3) /hpf Urine WBC (0-5) /hpf Ur Renal Epithelial Cell (None) /hpf Granular Casts (None) /lpf Urine Mucus (Occasional) /lpf Micro UA Comment Ur Microscopic Review Urine Culture Comments Vancomycin Trough 1.5 L (5.0-10.0) mcg/mL 02/04/18 02/04/18 02/04/18 Range/Units 14:46 14:46 17:12 WBC 9.0 (4.0-11.0) th/mm3 RBC 5.20 (4.50-5.90) mil/mm3 Hgb 16.0 (13.0-17.0) gm/dL Hct 48.0 (39.0-51.0) % MCV 92.3 (80.0-100.0) fL MCH 30.7 (27.0-34.0) pg MCHC 33.3 (32.0-36.0) % RDW 14.4 (11.6-17.2) % Plt Count 261 (150-450) th/mm3 MPV 7.1 (7.0-11.0) fL Neut % (Auto) (16.0-70.0) % Lymph % (Auto) (9.0-44.0) % Randall % (Auto) (0.0-8.0) % Eos % (Auto) (0.0-4.0) % Baso % (Auto) (0.0-2.0) % Neut # (Auto) (1.8-7.7) th/mm3 Lymph # (Auto) (1.0-4.8) th/mm3 Randall # (Auto) (0.0-0.9) th/mm3 Eos # (Auto) (0.0-0.4) th/mm3 Baso # (Auto) (0.0-0.2) th/mm3 WBC Differential Differential Comment Puncture Site Patient Temperature O2 Saturation (90-100) % ABG pH (7.380-7.420) ABG pCO2 (38-42) mmHg ABG pO2 (61-120) mmHg ABG HCO3 (22-26) mmol/L ABG O2 Content (12.0-20.0) Vol % ABG Base Excess (-2-2) mmol/L ABG Methemoglobin (0-2) % [place] Test Hemoglobin (12.0-16.0) G/DL Carboxyhemoglobin (0-4) % O2 Delivery Device Liter Flow L/M Critical Value Sodium 140 (136-145) meq/L Potassium 3.7 (3.5-5.1) meq/L Chloride 107 (98-107) meq/L Carbon Dioxide 21.0 (21.0-32.0) meq/L Anion Gap 12 (5-15) meq/L BUN 15 (7-18) mg/dL Creatinine 1.00 (0.60-1.30) mg/dL Estimated GFR 74 L (>89) mL/min POC Glucose 105 (68-110) mg/dl Random Glucose 143 H (74-106) mg/dL Hemoglobin A1c (4.3-6.0) % Lactic Acid (0.4-2.0) mmol/L Calcium 8.6 (8.5-10.1) mg/dL Magnesium (1.5-2.5) mg/dL Total Bilirubin (0.2-1.0) mg/dL AST (15-37) U/L ALT (12-78) U/L Alkaline Phosphatase (45-117) U/L Ammonia (11-32) mcmol/L Total Creatine Kinase (39-308) U/L CK-MB (CK-2) (0.5-3.6) ng/mL CK-MB (CK-2) % (0.0-4.0) % Total Protein (6.4-8.2) g/dL Albumin (3.4-5.0) g/dL Vitamin B12 (193-986) pg/mL TSH (0.358-3.740) uIU/mL Urine Color (Yellw/Straw) Urine Clarity (Clear) Urine pH (5.0-8.5) Ur Specific [place] (1.002-1.035) Urine Protein (Neg-Trace) mg/dL Urine Glucose (UA) (Negative) mg/dL Urine Ketones (Negative) mg/dL Urine Occult Blood (Negative) Urine Nitrate (Negative) Urine Bilirubin (Negative) Urine Urobilinogen (Less than 2) mg/dL Ur Leukocyte Esterase (Negative) Urine RBC (0-3) /hpf Urine WBC (0-5) /hpf Ur Renal Epithelial Cell (None) /hpf Granular Casts (None) /lpf Urine Mucus (Occasional) /lpf Micro UA Comment Ur Microscopic Review Urine Culture Comments Vancomycin Trough (5.0-10.0) mcg/mL 02/04/18 02/04/18 02/04/18 Range/Units 21:03 21:57 23:20 WBC (4.0-11.0) th/mm3 RBC (4.50-5.90) mil/mm3 Hgb (13.0-17.0) gm/dL Hct (39.0-51.0) % MCV (80.0-100.0) fL MCH (27.0-34.0) pg MCHC (32.0-36.0) % RDW (11.6-17.2) % Plt Count (150-450) th/mm3 MPV (7.0-11.0) fL Neut % (Auto) (16.0-70.0) % Lymph % (Auto) (9.0-44.0) % Randall % (Auto) (0.0-8.0) % Eos % (Auto) (0.0-4.0) % Baso % (Auto) (0.0-2.0) % Neut # (Auto) (1.8-7.7) th/mm3 Lymph # (Auto) (1.0-4.8) th/mm3 Randall # (Auto) (0.0-0.9) th/mm3 Eos # (Auto) (0.0-0.4) th/mm3 Baso # (Auto) (0.0-0.2) th/mm3 WBC Differential Differential Comment Puncture Site Patient Temperature O2 Saturation (90-100) % ABG pH (7.380-7.420) ABG pCO2 (38-42) mmHg ABG pO2 (61-120) mmHg ABG HCO3 (22-26) mmol/L ABG O2 Content (12.0-20.0) Vol % ABG Base Excess (-2-2) mmol/L ABG Methemoglobin (0-2) % [place] Test Hemoglobin (12.0-16.0) G/DL Carboxyhemoglobin (0-4) % O2 Delivery Device Liter Flow L/M Critical Value Sodium (136-145) meq/L Potassium (3.5-5.1) meq/L Chloride (98-107) meq/L Carbon Dioxide (21.0-32.0) meq/L Anion Gap (5-15) meq/L BUN (7-18) mg/dL Creatinine (0.60-1.30) mg/dL Estimated GFR (>89) mL/min POC Glucose 117 H 119 H (68-110) mg/dl Random Glucose (74-106) mg/dL Hemoglobin A1c (4.3-6.0) % Lactic Acid 2.0 (0.4-2.0) mmol/L Calcium (8.5-10.1) mg/dL Magnesium (1.5-2.5) mg/dL Total Bilirubin (0.2-1.0) mg/dL AST (15-37) U/L ALT (12-78) U/L Alkaline Phosphatase (45-117) U/L Ammonia (11-32) mcmol/L Total Creatine Kinase (39-308) U/L CK-MB (CK-2) (0.5-3.6) ng/mL CK-MB (CK-2) % (0.0-4.0) % Total Protein (6.4-8.2) g/dL Albumin (3.4-5.0) g/dL Vitamin B12 (193-986) pg/mL TSH (0.358-3.740) uIU/mL Urine Color (Yellw/Straw) Urine Clarity (Clear) Urine pH (5.0-8.5) Ur Specific [place] (1.002-1.035) Urine Protein (Neg-Trace) mg/dL Urine Glucose (UA) (Negative) mg/dL Urine Ketones (Negative) mg/dL Urine Occult Blood (Negative) Urine Nitrate (Negative) Urine Bilirubin (Negative) Urine Urobilinogen (Less than 2) mg/dL Ur Leukocyte Esterase (Negative) Urine RBC (0-3) /hpf Urine WBC (0-5) /hpf Ur Renal Epithelial Cell (None) /hpf Granular Casts (None) /lpf Urine Mucus (Occasional) /lpf Micro UA Comment Ur Microscopic Review Urine Culture Comments Vancomycin Trough (5.0-10.0) mcg/mL 02/04/18 02/05/18 02/05/18 Range/Units 23:20 00:10 07:44 WBC (4.0-11.0) th/mm3 RBC (4.50-5.90) mil/mm3 Hgb (13.0-17.0) gm/dL Hct (39.0-51.0) % MCV (80.0-100.0) fL MCH (27.0-34.0) pg MCHC (32.0-36.0) % RDW (11.6-17.2) % Plt Count (150-450) th/mm3 MPV (7.0-11.0) fL Neut % (Auto) (16.0-70.0) % Lymph % (Auto) (9.0-44.0) % Randall % (Auto) (0.0-8.0) % Eos % (Auto) (0.0-4.0) % Baso % (Auto) (0.0-2.0) % Neut # (Auto) (1.8-7.7) th/mm3 Lymph # (Auto) (1.0-4.8) th/mm3 Randall # (Auto) (0.0-0.9) th/mm3 Eos # (Auto) (0.0-0.4) th/mm3 Baso # (Auto) (0.0-0.2) th/mm3 WBC Differential Differential Comment Puncture Site Right radial Patient Temperature 98.6 O2 Saturation 95 (90-100) % ABG pH 7.37 L (7.380-7.420) ABG pCO2 41 (38-42) mmHg ABG pO2 82 (61-120) mmHg ABG HCO3 23 (22-26) mmol/L ABG O2 Content 21.2 H (12.0-20.0) Vol % ABG Base Excess -1.2 (-2-2) mmol/L ABG Methemoglobin 0.5 (0-2) % [place] Test Present Hemoglobin 15.9 (12.0-16.0) G/DL Carboxyhemoglobin 0.7 (0-4) % O2 Delivery Device Nasal cannula Liter Flow 2.00 L/M Critical Value No Sodium (136-145) meq/L Potassium (3.5-5.1) meq/L Chloride (98-107) meq/L Carbon Dioxide (21.0-32.0) meq/L Anion Gap (5-15) meq/L BUN (7-18) mg/dL Creatinine (0.60-1.30) mg/dL Estimated GFR (>89) mL/min POC Glucose 81 (68-110) mg/dl Random Glucose (74-106) mg/dL Hemoglobin A1c (4.3-6.0) % Lactic Acid (0.4-2.0) mmol/L Calcium (8.5-10.1) mg/dL Magnesium (1.5-2.5) mg/dL Total Bilirubin (0.2-1.0) mg/dL AST (15-37) U/L ALT (12-78) U/L Alkaline Phosphatase (45-117) U/L Ammonia (11-32) mcmol/L Total Creatine Kinase 1413 H (39-308) U/L CK-MB (CK-2) 15.6 H (0.5-3.6) ng/mL CK-MB (CK-2) % 1.1 (0.0-4.0) % Total Protein (6.4-8.2) g/dL Albumin (3.4-5.0) g/dL Vitamin B12 (193-986) pg/mL TSH (0.358-3.740) uIU/mL Urine Color (Yellw/Straw) Urine Clarity (Clear) Urine pH (5.0-8.5) Ur Specific [place] (1.002-1.035) Urine Protein (Neg-Trace) mg/dL Urine Glucose (UA) (Negative) mg/dL Urine Ketones (Negative) mg/dL Urine Occult Blood (Negative) Urine Nitrate (Negative) Urine Bilirubin (Negative) Urine Urobilinogen (Less than 2) mg/dL Ur Leukocyte Esterase (Negative) Urine RBC (0-3) /hpf Urine WBC (0-5) /hpf Ur Renal Epithelial Cell (None) /hpf Granular Casts (None) /lpf Urine Mucus (Occasional) /lpf Micro UA Comment Ur Microscopic Review Urine Culture Comments Vancomycin Trough (5.0-10.0) mcg/mL 02/05/18 02/05/18 02/05/18 Range/Units 09:32 09:32 09:32 WBC 8.4 (4.0-11.0) th/mm3 RBC 4.95 (4.50-5.90) mil/mm3 Hgb 15.5 (13.0-17.0) gm/dL Hct 44.9 (39.0-51.0) % MCV 90.7 (80.0-100.0) fL MCH 31.3 (27.0-34.0) pg MCHC 34.6 (32.0-36.0) % RDW 14.1 (11.6-17.2) % Plt Count 279 (150-450) th/mm3 MPV 6.9 L (7.0-11.0) fL Neut % (Auto) (16.0-70.0) % Lymph % (Auto) (9.0-44.0) % Randall % (Auto) (0.0-8.0) % Eos % (Auto) (0.0-4.0) % Baso % (Auto) (0.0-2.0) % Neut # (Auto) (1.8-7.7) th/mm3 Lymph # (Auto) (1.0-4.8) th/mm3 Randall # (Auto) (0.0-0.9) th/mm3 Eos # (Auto) (0.0-0.4) th/mm3 Baso # (Auto) (0.0-0.2) th/mm3 WBC Differential Differential Comment Puncture Site Patient Temperature O2 Saturation (90-100) % ABG pH (7.380-7.420) ABG pCO2 (38-42) mmHg ABG pO2 (61-120) mmHg ABG HCO3 (22-26) mmol/L ABG O2 Content (12.0-20.0) Vol % ABG Base Excess (-2-2) mmol/L ABG Methemoglobin (0-2) % [place] Test Hemoglobin (12.0-16.0) G/DL Carboxyhemoglobin (0-4) % O2 Delivery Device Liter Flow L/M Critical Value Sodium 143 (136-145) meq/L Potassium 3.2 L (3.5-5.1) meq/L Chloride 108 H (98-107) meq/L Carbon Dioxide 23.6 (21.0-32.0) meq/L Anion Gap 11 (5-15) meq/L BUN 17 (7-18) mg/dL Creatinine 0.87 (0.60-1.30) mg/dL Estimated GFR 87 L (>89) mL/min POC Glucose (68-110) mg/dl Random Glucose 78 (74-106) mg/dL Hemoglobin A1c (4.3-6.0) % Lactic Acid (0.4-2.0) mmol/L Calcium 8.6 (8.5-10.1) mg/dL Magnesium (1.5-2.5) mg/dL Total Bilirubin (0.2-1.0) mg/dL AST (15-37) U/L ALT (12-78) U/L Alkaline Phosphatase (45-117) U/L Ammonia (11-32) mcmol/L Total Creatine Kinase (39-308) U/L CK-MB (CK-2) (0.5-3.6) ng/mL CK-MB (CK-2) % (0.0-4.0) % Total Protein (6.4-8.2) g/dL Albumin (3.4-5.0) g/dL Vitamin B12 399 (193-986) pg/mL TSH (0.358-3.740) uIU/mL Urine Color (Yellw/Straw) Urine Clarity (Clear) Urine pH (5.0-8.5) Ur Specific [place] (1.002-1.035) Urine Protein (Neg-Trace) mg/dL Urine Glucose (UA) (Negative) mg/dL Urine Ketones (Negative) mg/dL Urine Occult Blood (Negative) Urine Nitrate (Negative) Urine Bilirubin (Negative) Urine Urobilinogen (Less than 2) mg/dL Ur Leukocyte Esterase (Negative) Urine RBC (0-3) /hpf Urine WBC (0-5) /hpf Ur Renal Epithelial Cell (None) /hpf Granular Casts (None) /lpf Urine Mucus (Occasional) /lpf Micro UA Comment Ur Microscopic Review Urine Culture Comments Vancomycin Trough (5.0-10.0) mcg/mL 02/05/18 02/05/18 02/05/18 Range/Units 09:32 12:04 15:15 WBC (4.0-11.0) th/mm3 RBC (4.50-5.90) mil/mm3 Hgb (13.0-17.0) gm/dL Hct (39.0-51.0) % MCV (80.0-100.0) fL MCH (27.0-34.0) pg MCHC (32.0-36.0) % RDW (11.6-17.2) % Plt Count (150-450) th/mm3 MPV (7.0-11.0) fL Neut % (Auto) (16.0-70.0) % Lymph % (Auto) (9.0-44.0) % Randall % (Auto) (0.0-8.0) % Eos % (Auto) (0.0-4.0) % Baso % (Auto) (0.0-2.0) % Neut # (Auto) (1.8-7.7) th/mm3 Lymph # (Auto) (1.0-4.8) th/mm3 Randall # (Auto) (0.0-0.9) th/mm3 Eos # (Auto) (0.0-0.4) th/mm3 Baso # (Auto) (0.0-0.2) th/mm3 WBC Differential Differential Comment Puncture Site Patient Temperature O2 Saturation (90-100) % ABG pH (7.380-7.420) ABG pCO2 (38-42) mmHg ABG pO2 (61-120) mmHg ABG HCO3 (22-26) mmol/L ABG O2 Content (12.0-20.0) Vol % ABG Base Excess (-2-2) mmol/L ABG Methemoglobin (0-2) % [place] Test Hemoglobin (12.0-16.0) G/DL Carboxyhemoglobin (0-4) % O2 Delivery Device Liter Flow L/M Critical Value Sodium (136-145) meq/L Potassium (3.5-5.1) meq/L Chloride (98-107) meq/L Carbon Dioxide (21.0-32.0) meq/L Anion Gap (5-15) meq/L BUN (7-18) mg/dL Creatinine (0.60-1.30) mg/dL Estimated GFR (>89) mL/min POC Glucose 79 (68-110) mg/dl Random Glucose (74-106) mg/dL Hemoglobin A1c (4.3-6.0) % Lactic Acid (0.4-2.0) mmol/L Calcium (8.5-10.1) mg/dL Magnesium (1.5-2.5) mg/dL Total Bilirubin (0.2-1.0) mg/dL AST (15-37) U/L ALT (12-78) U/L Alkaline Phosphatase (45-117) U/L Ammonia (11-32) mcmol/L Total Creatine Kinase (39-308) U/L CK-MB (CK-2) (0.5-3.6) ng/mL CK-MB (CK-2) % (0.0-4.0) % Total Protein (6.4-8.2) g/dL Albumin (3.4-5.0) g/dL Vitamin B12 (193-986) pg/mL TSH 5.000 H (0.358-3.740) uIU/mL Urine Color Yellow (Yellw/Straw) Urine Clarity Clear (Clear) Urine pH 5.0 (5.0-8.5) Ur Specific [place] 1.028 (1.002-1.035) Urine Protein Negative (Neg-Trace) mg/dL Urine Glucose (UA) Negative (Negative) mg/dL Urine Ketones 20 (Negative) mg/dL Urine Occult Blood Small H (Negative) Urine Nitrate Negative (Negative) Urine Bilirubin Negative (Negative) Urine Urobilinogen Less than 2 (Less than 2) mg/dL Ur Leukocyte Esterase Trace H (Negative) Urine RBC 10 H (0-3) /hpf Urine WBC 7 H (0-5) /hpf Ur Renal Epithelial Cell (None) /hpf Granular Casts 1 (None) /lpf Urine Mucus Few H (Occasional) /lpf Micro UA Comment Culture not ind Ur Microscopic Review Not Reportable Urine Culture Comments Culture not ind Vancomycin Trough (5.0-10.0) mcg/mL Imaging Data Radiologist's impression: Abdomen/Pelvis CT 02/02/18 01:30 CONCLUSION: 1. Fat-containing left inguinal hernia. 2. Mild prostate enlargement with metallic localization seeds. Chest X-Ray 02/02/18 01:30 CONCLUSION: The appearance of the lungs is similar to September 2017 with some mild bilateral perihilar thickening. No peripheral infiltrates seen. Head CT 02/04/18 22:20 CONCLUSION: No acute intracranial abnormality demonstrated. . Head MRI 02/05/18 00:00 CONCLUSION: 1. No acute hemorrhage, mass or stroke. ECG Data Attestation: I personally reviewed and interpreted this ECG as follows: Interpretation: Twelve-lead EKG was reviewed by me. Normal sinus rhythm, left axis deviation, tachycardia, motion artifact. Heart rate of 107 bpm. Discharge Plan Discharge Disposition Patient Disposition: 30 Still Patient Physicians Team ED Provider: Lakhwinder Mace Primary Care Provider: Wiley Cotto Attending Provider: Pilar Freeman Other Providers: Geovanny Cordero ; Rodríguez Agudelo ; [email or web address] ; [facility]Ag[facility] ; Eulogio Jones Status ED Status: Left Department Discharge Information Discharge Date/Time: 02/02/18 05:22
[2018-02-02 02:01] LABS: Baso # (Auto) 0.1 th/mm3 (0.0-0.2); Baso % (Auto) 0.4 % (0.0-2.0); Eos % (Auto) 0.1 % (0.0-4.0); Hematocrit 48.5 % (39.0-51.0); Hemoglobin 17.1 gm/dL (13.0-17.0); Lymph # (Auto) 0.9 th/mm3 (1.0-4.8); Lymph % (Auto) 5.7 % (9.0-44.0); Mean Corpuscular HGB Conc 35.3 % (32.0-36.0); Mean Corpuscular Hemoglobin 31.7 pg (27.0-34.0); Mean Corpuscular Volume 89.7 fL (80.0-100.0); Mono # (Auto) 0.8 th/mm3 (0.0-0.9); Mono % (Auto) 5.2 % (0.0-8.0); Neut # (Auto) 14.3 th/mm3 (1.8-7.7); Neut % (Auto) 88.6 % (16.0-70.0); Platelet Count 270 th/mm3 (150-450); Red Blood Count 5.41 mil/mm3 (4.50-5.90); Red Cell Distribution Width 14.3 % (11.6-17.2); White Blood Count 16.2 th/mm3 (4.0-11.0)
[2018-02-02] MEDS ORDERED: Aztreonam Inj 2 GM in Sodium Chloride 0.9% Inj 100 ML IV.SIG ONE (02:02)
[2018-02-02] MEDS ORDERED: Vancomycin Inj 1 GM/200 ML PIGGYBACK IV.SIG ONE (02:02)
[2018-02-02 02:03] LABS: Bilirubin,Urine Negative (Negative); Clarity,Urine Hazy (Clear); Color,Urine Yellow (Yellw/Straw); Glucose,Urine (UA) Negative (Negative); Leukocyte Esterase,Urine Moderate (Negative); Mucus,Urine Few /lpf (Occasional); Nitrite,Urine Negative (Negative); Renal Epithelial Cells,Urine 11 /hpf; Specific Gravity,Urine 1.012 (1.002-1.035)
--- NOTE | 2018-02-02 02:10 | XR ---
EXAM DATE: 02/02/2018 2:02 AM EDT AGE/SEX: 73 years / Male INDICATIONS: Fever today. Confusion. CLINICAL DATA: This is the patient's initial encounter. Patient reports that signs and symptoms have been present for 1 day and indicates a pain score of 0/10. MEDICAL/SURGICAL HISTORY: . Hypertension. Diabetes. Parkinsons None. COMPARISON: [facility] [place], CHEST SINGLE AP, 09/21/2017. [facility] [place], CHEST SINGLE AP, 08/30/2014. . FINDINGS: There is some peribronchial thickening in the perihilar region bilaterally, similar to prior examinat ion in September 2017. The heart is stable in size without cardiomegaly. Both hemidiaphragms well delineat ed. No focal areas of consolidation seen. CONCLUSION: The appearance of the lungs is similar to September 2017 with some mild bilateral perihilar thickening. No peripheral infiltrates seen. Electronically signed by: Colton Soto MD 02/02/2018 2:08 AM EDT
[2018-02-02] MEDS ORDERED: Vancomycin Inj 1,000 MG in Sodium Chlor 0.9% Inj 250 ML IV.SIG ONE (02:30)
[2018-02-02 02:33] LABS: Alanine Aminotransferase 33 U/L (12-78); Albumin 3.7 g/dL (3.4-5.0); Anion Gap 9 meq/L (5-15); Aspartate Aminotransferase 28 U/L (15-37); Blood Urea Nitrogen 13 mg/dL (7-18); Calcium 8.3 mg/dL (8.5-10.1); Carbon Dioxide 22.4 meq/L (21.0-32.0); Chloride 107 meq/L (98-107); Glomerular Filtration Rate 74 mL/min (>89); Glucose,Random 107 mg/dL (74-106); Magnesium 1.7 mg/dL (1.5-2.5); Potassium 3.8 meq/L (3.5-5.1); Sodium 138 meq/L (136-145)
[2018-02-02 02:41] LABS: Alkaline Phosphatase 73 U/L (45-117); Total Protein 7.2 g/dL (6.4-8.2)
--- NOTE | 2018-02-02 03:26 | CT ---
EXAM DATE: 02/02/2018 3:15 AM EDT AGE/SEX: 73 years / Male INDICATIONS: Abdomen pain with fever. CLINICAL DATA: This is the patient's initial encounter. Patient reports that signs and symptoms have been present for 1 day and indicates a pain score of 0/10. MEDICAL/SURGICAL HISTORY: Parkinson's disease. None. ORAL CONTRAST: No oral contrast ingested. RADIATION DOSE: 15.34 CTDI (mGy) COMPARISON: No prior exams available for comparison. TECHNIQUE: Multiple contiguous axial images were obtained through the abdomen and pelvis following b olus infusion of 97 ml Omnipaque 350 (iohexol) nonionic water-soluble contrast as a single exam dos e. No oral contrast ingested. Using automated exposure control and adjustment of the mA and/or kV ac cording to patient size, radiation dose was kept as low as reasonably achievable to obtain optimal di agnostic quality images. DICOM format image data is available electronically for review and comparis on. FINDINGS: Lower Lungs: The visualized lower lungs are clear. Liver: The liver has a homogeneous density without space-occupying lesion. There is no dilation of th e biliary tree. No calcified gallstones. Spleen: Homogeneous density without enlargement. Pancreas: Unremarkable without mass or calcification. Kidneys: Normal in size and shape. No evidence of mass or hydronephrosis. No calcified renal stones. Adrenal Glands: Unremarkable. Aorta: The aorta and proximal iliac vessels are grossly unremarkable without aneurysmal dilation. Bowel/Mesentery: No dilated loops of small or large bowel. No evidence of free fluid. Abdominal Wall: Intact. Retroperitoneum: No evidence of adenopathy in the retrocrural, para-aortic, or deep pelvic regions. Bladder: Contours are smooth. Reproductive Organs: Mildly enlarged prostate with metallic localization seeds within. Inguinal: Moderate size fat-containing left inguinal hernia. Bony Structures: Moderate degenerative changes in the posterior limbs of the lumbar spine. No lytic or sclerotic lesions seen. CONCLUSION: 1. Fat-containing left inguinal hernia. 2. Mild prostate enlargement with metallic localization seeds. Electronically signed by: Colton Soto MD 02/02/2018 3:24 AM EDT
[2018-02-02] MEDS ORDERED: Bisacodyl 10 MG Supp RECTAL PRN (04:10)
[2018-02-02] MEDS ORDERED: Vancomycin Consult Pharmacy OTHER PRN (04:27)
--- NOTE | 2018-02-02 04:36 | P.HPIM ---
History of Present Illness Primary Care Physician: Wiley Cotto MD History of Present Illness: 73-year-old male with a history of Parkinson's, hyperlipidemia, hypertension, prostate cancer and diet-controlled diabetes who was brought to the ED for evaluation of frequent urination and difficulty walking. Patient is a poor historian. History is taken from the who also may have underlying dementia. states on Saturday he had prostate seeds placed and his urologist and yesterday she noticed that he was having difficulty walking and having frequent urination. Patient does complain of dysuria and very frequent urination. Upon arrival patient was found to have a rectal temperature of 102.8. Inpatient Certification: I certify that the inpatient services were ordered in accordance with Medicare regulations governing the order. This includes certification that hospital inpatient services are reasonable and necessary and in the case of services not specified as inpatient-only under 42 CFR 419.22(n), that they are appropriately provided as inpatient services in accordance to with the 2-midnight benchmark under 43 CFR 412.3(e) Estimated Total Length of Stay (Days): 3 Plans for Post Hospital Care: Home Review of Systems All other systems reviewed negative except as stated in HPI PMFSH - History History Provided By: Patient - Medical History Medical History: Medical History (Last Reviewed 02/02/18 @ 04:09 by ALEXANDRO Rios) BPH (benign prostatic hyperplasia) Diabetes HLD (hyperlipidemia) HTN (hypertension) Parkinsons Prostate cancer - Surgical History Surgical History: Surgical History (Last Reviewed 02/02/18 @ 04:09 by ALEXANDRO Rios) H/O carpal tunnel repair H/O hernia repair - Family History Family History: Family History (Last Reviewed 02/02/18 @ 04:09 by ALEXANDRO Rios) Father Parkinson disease - Tobacco History Second Hand Smoke Exposure: No Smoking Status: Never smoker - Alcohol History How Often Do You Have a Drink Containing Alcohol: Never - Substance Use History Substance History: No History of Abuse - Travel History Recent Travel in the [place] Within the Last 8 Weeks: No Recent Travel Out of the Country Within the Last 8 Weeks: No - Immunization History Tetanus Immunization: Unsure Medications and Allergies Active Medications: Active Medications Al Hydroxide/Mg Hydroxide (Milk Of Magnesia Liq) 30 ml PO Q12H PRN PRN Reason: Mild Constipation Bisacodyl (Dulcolax Supp) 10 mg RECTAL DAILY PRN PRN Reason: SEVERE CONSITIPATION Heparin Sodium (Porcine) (Heparin Inj) 5,000 units SQ Q12H NOEMY Sodium Chloride (Ns Inj) 1,000 mls @ 0 mls/hr IV.SIG BOLUS NOEMY Last Infusion: 02/02/18 04:09 Dose: Infused Sodium Chloride (Ns Inj) 1,000 mls @ 0 mls/hr IV.SIG BOLUS NOEMY Last Infusion: 02/02/18 04:09 Dose: Infused Lactulose (Lactulose Liq) 30 ml PO DAILY PRN PRN Reason: SEVERE CONSITIPATION Ondansetron HCl (Zofran Inj) 4 mg IV.PUSH Q6H PRN PRN Reason: NAUSEA OR VOMITING Sennosides (Senokot) 17.2 mg PO Q12H PRN PRN Reason: Moderate Constipation Allergies Allergy/AdvReac Type Severity Reaction Status Date / Time penicillin G Allergy Severe Hives Unverified 02/02/18 00:38 Home Medications Medication Instructions Recorded Confirmed Type amlodipine 5 mg PO DAILY 02/02/18 02/02/18 History carbidopa-levodopa 1 tab PO TID 02/02/18 02/02/18 History ropinirole 2 mg PO TID 02/02/18 02/02/18 History simvastatin 20 mg PO QPM 02/02/18 02/02/18 History tamsulosin 0.4 mg PO BID 02/02/18 02/02/18 History Exam Vital signs: Vital Signs 02/02/18 00:34 02/02/18 00:47 02/02/18 01:48 Temperature 98.2 F 102.9 F H Pulse Rate 125 H 110 H Respiratory Rate 30 H 28 H Blood Pressure 140/78 Pulse Oximetry 99 98 02/02/18 02:02 Temperature Pulse Rate Respiratory Rate Blood Pressure Pulse Oximetry 97 Intake & Output 02/01/18 02/01/18 02/02/18 06:59 18:59 06:59 Intake Total 2099 Balance 2099 Weight 86.183 kg Intake: IV 2099 Azactam Inj 2 GM In NS Inj 100 100 / 100 ML @ 200 mls/hr IV.SIG ONCE ONE Rx#:[id number] NS Inj 1,000 ML @ Wide Open IV. 1999 SIG BOLUS NOEMY Rx#:[id number] Narrative: GENERAL: This is a well-nourished, well-developed patient, in no apparent distress. CARDIOVASCULAR: Regular rate and rhythm without murmurs, gallops, or rubs. RESPIRATORY: Clear to auscultation. Breath sounds equal bilaterally. No wheezes , rales, or rhonchi. GASTROINTESTINAL: Abdomen soft, non-tender, nondistended. Normal active bowel sounds, no cva tenderness MUSCULOSKELETAL: Extremities without clubbing, cyanosis, or edema. NEURO: Alert & Oriented x3 to person, place, time. Moves all ext x4, tremors Results - Labs CBC & Chem 7: 02/02/18 01:44 02/02/18 02:14 Labs: Short CBC 02/02/18 Range/Units 01:44 WBC 16.2 H (4.0-11.0) th/mm3 Hgb 17.1 H (13.0-17.0) gm/dL Hct 48.5 (39.0-51.0) % Plt Count 270 (150-450) th/mm3 BMP 02/02/18 02:14 Sodium 138 Potassium 3.8 Chloride 107 Carbon Dioxide 22.4 BUN 13 Creatinine 1.00 Calcium 8.3 L Liver Function 02/02/18 Range/Units 02:14 Total Bilirubin 1.1 H (0.2-1.0) mg/dL AST 28 (15-37) U/L ALT 33 (12-78) U/L Alkaline Phosphatase 73 (45-117) U/L Albumin 3.7 (3.4-5.0) g/dL Urine 02/02/18 Range/Units 01:35 Urine Color Yellow (Yellw/Straw) Urine Clarity Hazy H (Clear) Urine pH 6.0 (5.0-8.5) Ur Specific [place] 1.012 (1.002-1.035) Urine Protein Negative (Neg-Trace) mg/dL Urine Glucose (UA) Negative (Negative) mg/dL - Imaging Impressions Abdomen/Pelvis CT 02/02/18 01:30 CONCLUSION: 1. Fat-containing left inguinal hernia. 2. Mild prostate enlargement with metallic localization seeds. Chest X-Ray 02/02/18 01:30 CONCLUSION: The appearance of the lungs is similar to September 2017 with some mild bilateral perihilar thickening. No peripheral infiltrates seen. Caprini VTE Risk Assessment Caprini VTE Risk Assessment: Moderate/High Risk (score >= 2) Caprini Risk Assessment Model: Point Value = 1 Point Value = 2 Point Value = 3 Point Value = 5 Age 41-60 Minor surgery BMI > 25 kg/m2 Swollen legs Varicose veins or History of unexplained or recurrent spontaneous Oral contraceptives or hormone replacement Sepsis (< 1 month) Serious lung disease, including pneumonia (< 1 month) Abnormal pulmonary function Acute myocardial infarction Congestive heart failure (< 1 month) History of inflammatory bowel disease Medical patient at bed rest Age 61-74 Arthroscopic surgery Major open surgery (> 45 min) Laparoscopic surgery (> 45 min) Malignancy Confined to bed (> 72 hours) Immobilizing plaster cast Central venous access Age >= 75 History of VTE Family history of VTE Factor V Leiden Prothrombin [id number] Lupus anticoagulant Anticardiolipin antibodies Elevated serum homocysteine Heparin-induced thrombocytopenia Other congenital or acquired thrombophilia Stroke (< 1 month) Elective arthroplasty Hip, pelvis, or leg fracture Acute spinal cord injury (< 1 month) Prophylaxis Regimen: Total Risk Factor Score Risk Level Prophylaxis Regimen 0-1 Low Early ambulation 2 Moderate Order ONE of the following: *Sequential Compression Device (SCD) *Heparin 5000 units SQ BID 3-4 Higher Order ONE of the following medications: *Heparin 5000 units SQ TID *Enoxaparin/Lovenox 40 mg SQ daily (WT < 150 kg, CrCl > 30 mL/min) *Enoxaparin/Lovenox 30 mg SQ daily (WT < 150 kg, CrCl > 10-29 mL/min) *Enoxaparin/Lovenox 30 mg SQ BID (WT < 150 kg, CrCl > 30 mL/min) AND/OR *Sequential Compression Device (SCD) 5 or more Highest Order ONE of the following medications: *Heparin 5000 units SQ TID (Preferred with Epidurals) *Enoxaparin/Lovenox 40 mg SQ daily (WT < 150 kg, CrCl > 30 mL/min) *Enoxaparin/Lovenox 30 mg SQ daily (WT < 150 kg, CrCl > 10-29 mL/min) *Enoxaparin/Lovenox 30 mg SQ BID (WT < 150 kg, CrCl > 30 mL/min) AND *Sequential Compression Device (SCD) Assessment and Plan - Plan 73-year-old male with a history of Parkinson's, hyperlipidemia, hypertension, prostate cancer and diet-controlled diabetes who was brought to the ED for evaluation of frequent urination and difficulty walking. sepsis, UTI WBC 13.2, heart rate 125, temp 102.9, lactic acid 2 UA shows moderate leukocyte esterase with elevated WBC -Urine and blood cultures pending -IV antibiotics vancomycin and aztreonam -2 L bolus given in the ED, continue IVF -Consult infectious disease Weakness/unable to ambulate, most likely related to urosepsis -Consult PT Hypertension, chronic -Resume home medications, monitor vitals Diabetes patient and states diet controlled -Check A1c -Accu-Cheks Parkinson's, chronic -Resume home medications DVT prophylaxis: Heparin
[2018-02-02] MEDS: Heparin - SQ 10,000 UNITS/ML Vial SQ SCH ×2 (05:23→18:12)
[2018-02-02] MEDS: Aztreonam Inj 2 GM in Sodium Chloride 0.9% Inj 100 ML IV.SIG SCH ×2 (09:24→18:09)
[2018-02-02] MEDS: amLODIPine 5 MG Tablet PO SCH (09:26)
--- NOTE | 2018-02-02 14:19 | ECG ---
Date Performed: 02/02/2018 Time Performed: 00:56:26 PTAGE: 73 years EKG: SINUS TACHYCARDIA LEFT ANTERIOR FASCICULAR BLOCK ABNORMAL ECG NO PREVIOUS TRACING Since the previous tracing, no significant change noted DOCTOR: Kory Spencer Interpretating Date/Time 02/02/2018 14:17:10
--- NOTE | 2018-02-02 14:34 | P.CONURO ---
History of Present Illness Service: Consult date: 02/02/18 Requesting Physician: Loly Tyler Reason for Consult: Urinary tract infection Primary Care Provider: Wiley Cotto MD History of Present Illness: 73-year-old gentleman with history of Parkinson's disease and prostate cancer who is under the care of a urologist in [place] and recently underwent placement of prostate radioactive markers on Saturday. Patient presented to the emergency room with complaints of urinary frequency and difficulty with ambulation. Upon arrival to the emergency room the patient was noted to be tachycardic and had a fever of 102.8 F. Patient also was noted to have elevation of the white blood cell count and urinalysis was consistent with urinary tract infection. Patient was admitted for IV antibiotics and a urology consult was placed. At the time of consultation, the patient reported feeling better. He denied dysuria or hematuria. Review of Systems All other systems reviewed negative except as stated in HPI PMFSH - History History Provided By: Patient, Significant Other - Medical History Medical History: Medical History (Last Reviewed 02/02/18 @ 09:07 by Juan José Mahmood) BPH (benign prostatic hyperplasia) Diabetes HLD (hyperlipidemia) HTN (hypertension) Parkinsons Prostate cancer - Surgical History Surgical History: Surgical History (Last Reviewed 02/02/18 @ 09:07 by Juan José Mahmood) H/O carpal tunnel repair H/O hernia repair - Family History Family History: Family History (Last Reviewed 02/02/18 @ 04:09 by Loly Tyler [facility]) Father Parkinson disease - Tobacco History Second Hand Smoke Exposure: No Smoking Status: Never smoker - Alcohol History How Often Do You Have a Drink Containing Alcohol: Never - Substance Use History Substance History: No History of Abuse - Travel History Recent Travel in the [place] Within the Last 8 Weeks: No Recent Travel Out of the Country Within the Last 8 Weeks: No - Immunization History Tetanus Immunization: <5 Years Hx Influenza Vaccine This Season: No Medications and Allergies Active Medications: Active Medications Al Hydroxide/Mg Hydroxide (Milk Of Fozia Lisaman) 30 ml PO Q12H PRN PRN Reason: Mild Constipation Amlodipine Besylate (Norvasc) 5 mg PO DAILY [facility] Last Admin: 02/02/18 09:26 Dose: 5 mg Bisacodyl (Dulcolax Supp) 10 mg RECTAL DAILY PRN PRN Reason: SEVERE CONSITIPATION Carbidopa/Levodopa (Sinemet 25/100 Mg) 1 tab PO TID [facility] Last Admin: 02/02/18 12:52 Dose: 1 tab Heparin Sodium (Porcine) (Heparin Inj) 5,000 units SQ Q12H [facility] Last Admin: 02/02/18 05:23 Dose: 5,000 units Aztreonam 2 gm/ Sodium (Chloride) 100 mls @ 200 mls/hr IV.SIG Q8H [facility] Last Infusion: 02/02/18 10:00 Dose: Infused Metronidazole/Sodium Chloride (Flagyl 500 Mg Inj) 100 mls @ 100 mls/hr IV.SIG Q8H [facility] Last Admin: 02/02/18 12:47 Dose: 100 mls/hr Vancomycin HCl 1,250 mg/ (Sodium Chloride) 262.5 mls @ 250 mls/hr IV.SIG Q18H [facility] Lactulose (Lactulose Liq) 30 ml PO DAILY PRN PRN Reason: SEVERE CONSITIPATION Miscellaneous Information ([facility] Ordered Lab Info) 0 each OTHER ONCE ONE Stop: 02/04/18 07:46 Ondansetron HCl (Zofran Inj) 4 mg IV.PUSH Q6H PRN PRN Reason: NAUSEA OR VOMITING Pharmacy Profile Note (Vancomycin Consult Pharmacy) 1 each OTHER UNSCH PRN PRN Reason: Pharmacy to dose Pravastatin Sodium (Pravachol) 40 mg PO QPM [facility] Ropinirole HCl (Requip) 2 mg PO TID [facility] Last Admin: 02/02/18 12:52 Dose: 2 mg Sennosides (Senokot) 17.2 mg PO Q12H PRN PRN Reason: Moderate Constipation Tamsulosin HCl (Flomax) 0.4 mg PO BID [facility] Last Admin: 02/02/18 09:25 Dose: 0.4 mg Allergies Allergy/AdvReac Type Severity Reaction Status Date / Time penicillin G Allergy Severe Hives Unverified 02/02/18 00:38 Home Medications Medication Instructions Recorded Confirmed Type amlodipine 5 mg PO DAILY 02/02/18 02/02/18 History carbidopa-levodopa 1 tab PO TID 02/02/18 02/02/18 History ropinirole 2 mg PO TID 02/02/18 02/02/18 History simvastatin 20 mg PO QPM 02/02/18 02/02/18 History tamsulosin 0.4 mg PO BID 02/02/18 02/02/18 History Physical Exam Vital Signs - 24 hr 02/02/18 00:34 02/02/18 00:47 02/02/18 01:48 Temperature 98.2 F 102.9 F H Pulse Rate 125 H 110 H Respiratory Rate 30 H 28 H Blood Pressure 140/78 Pulse Oximetry 99 98 02/02/18 02:02 02/02/18 04:39 02/02/18 08:00 Temperature 101.1 F H 97.3 F L Pulse Rate 102 H 85 Respiratory Rate 18 19 Blood Pressure 150/80 H 135/73 Pulse Oximetry 97 95 98 02/02/18 12:00 Temperature 99.3 F Pulse Rate 77 Respiratory Rate 18 Blood Pressure 127/69 Pulse Oximetry 99 Physical Exam: GENERAL: This is a well-nourished, well-developed patient, in no apparent distress. SKIN: No rashes, ecchymoses or lesions. Cool and dry. HEAD: Atraumatic. Normocephalic. No temporal or scalp tenderness. EYES: Pupils equal round and reactive. Extraocular motions intact. No scleral icterus. No injection or drainage. ENT: Nose without bleeding, purulent drainage or septal hematoma. Throat without erythema, tonsillar hypertrophy or exudate. Uvula midline. Airway patent. NECK: Trachea midline. No JVD or lymphadenopathy. Supple, nontender, no meningeal signs. GASTROINTESTINAL: Abdomen soft, non-tender, nondistended. No hepato-splenomegaly , or palpable masses. No guarding. GENITOURINARY: Patient wearing a condom catheter with clear urine noted in the drainage bag. No CVA tenderness. Bladder not distended. MUSCULOSKELETAL: Extremities without clubbing, cyanosis, or edema. No joint tenderness, effusion, or edema noted. No calf tenderness. Negative Homans sign bilaterally. NEUROLOGICAL: Awake and alert. Cranial nerves II through XII intact. Motor and sensory grossly within normal limits. Five out of 5 muscle strength in all muscle groups. Normal speech. Laboratory Results - last 24 hr 02/02/18 02/02/18 02/02/18 01:35 01:44 01:44 WBC 16.2 H RBC 5.41 Hgb 17.1 H Hct 48.5 MCV 89.7 MCH 31.7 MCHC 35.3 RDW 14.3 Plt Count 270 MPV 8.0 Neut % (Auto) 88.6 H Lymph % (Auto) 5.7 L [place] % (Auto) 5.2 Eos % (Auto) 0.1 Baso % (Auto) 0.4 Neut # (Auto) 14.3 H Lymph # (Auto) 0.9 L [place] # (Auto) 0.8 Eos # (Auto) 0.0 Baso # (Auto) 0.1 WBC Differential . Differential Comment Auto diff final Sodium Potassium Chloride Carbon Dioxide Anion Gap BUN Creatinine Estimated GFR POC Glucose Random Glucose Lactic Acid 2.0 Calcium Magnesium Total Bilirubin AST ALT Alkaline Phosphatase Total Protein Albumin Urine Color Yellow Urine Clarity Hazy H Urine pH 6.0 Ur Specific [place] 1.012 Urine Protein Negative Urine Glucose (UA) Negative Urine Ketones Negative Urine Occult Blood Large H Urine Nitrate Negative Urine Bilirubin Negative Urine Urobilinogen Less than 2 Ur Leukocyte Esterase Moderate H Urine RBC 4 H Urine WBC 88 H Ur Renal Epithelial Cell 11 Urine Mucus Few H Micro UA Comment Culture indicated Ur Microscopic Review Not Reportable Urine Culture Comments Culture indicated 02/02/18 02/02/18 02/02/18 02:14 04:21 12:10 WBC RBC Hgb Hct MCV MCH MCHC RDW Plt Count MPV Neut % (Auto) Lymph % (Auto) [place] % (Auto) Eos % (Auto) Baso % (Auto) Neut # (Auto) Lymph # (Auto) [place] # (Auto) Eos # (Auto) Baso # (Auto) WBC Differential Differential Comment Sodium 138 Potassium 3.8 Chloride 107 Carbon Dioxide 22.4 Anion Gap 9 BUN 13 Creatinine 1.00 Estimated GFR 74 L POC Glucose 128 H 108 Random Glucose 107 H Lactic Acid Calcium 8.3 L Magnesium 1.7 Total Bilirubin 1.1 H AST 28 ALT 33 Alkaline Phosphatase 73 Total Protein 7.2 Albumin 3.7 Urine Color Urine Clarity Urine pH Ur Specific [place] Urine Protein Urine Glucose (UA) Urine Ketones Urine Occult Blood Urine Nitrate Urine Bilirubin Urine Urobilinogen Ur Leukocyte Esterase Urine RBC Urine WBC Ur Renal Epithelial Cell Urine Mucus Micro UA Comment Ur Microscopic Review Urine Culture Comments Result Diagrams: 02/02/18 01:44 02/02/18 02:14 Imaging: ITS Impressions Abdomen/Pelvis CT 02/02/18 01:30 CONCLUSION: 1. Fat-containing left inguinal hernia. 2. Mild prostate enlargement with metallic localization seeds. Chest X-Ray 02/02/18 01:30 CONCLUSION: The appearance of the lungs is similar to September 2017 with some mild bilateral perihilar thickening. No peripheral infiltrates seen. Assessment and Plan - Assessment (1) UTI (urinary tract infection) Code(s): N39.0 - Urinary tract infection, site not specified Status: Acute - Plan Urologic impression: 1. Status post recent placement of prostate radioactive therapy markers 2. Urinary tract infection related to recent urologic procedure Recommendations: 1. Agree with present antibiotic therapy 2. Agree with infectious disease evaluation 3. No urologic surgical intervention indicated 4. Patient to follow-up with his established urologist in [place] after hospital discharge 5. We will be available as needed
--- NOTE | 2018-02-02 15:18 | P.PNADD ---
Addendum to Inpatient Note Reason for Addendum: Additional Documentation Additional information: Patient seen. Sitting up in chair. No acute distress Awake and alert. Clear lungs bilaterally, unlabored breathing no suprapubic tenderness to palpation Continue current treatment
--- NOTE | 2018-02-02 16:28 | MB ---
cc: Geovanny Cordero MD DATE: 02/02/2018 REQUESTING PHYSICIAN: Loly Tyler MD REASON FOR CONSULTATION: Sepsis. The patient is status post recent prostate seed placement. HISTORY OF PRESENT ILLNESS: This is a 73-year-old white male who presented to the emergency department with respiratory symptoms. The patient was recently diagnosed with prostate cancer, and approximately 5 days ago, he underwent seed placement for treatment of the prostate cancer by his urologist. He reportedly developed difficulty walking yesterday evening and he was having frequent urination, and was brought to the emergency department for evaluation. The patient states that he was having shortness of breath. He is not a good historian and therefore, information is obtained from the medical record. The patient had a temperature of 102.9 degrees and white count was elevated at 16.2. Urinalysis was obtained and showed 88 white cells. Blood cultures were obtained and a urine culture was also obtained, results are pending. He was started on antibiotics. His temperature has improved. He appears calm, somewhat confused currently. He also has difficulty hearing and his urine is not available at this time and therefore, it is difficult to determine the degree of altered mental status. This consultation is requested because of sepsis. PAST MEDICAL HISTORY: Diabetes mellitus, hypertension, hyperlipidemia, benign prostatic hyperplasia, Parkinson's disease, prostate cancer, history of hernia repair, history of carpal tunnel repair. ALLERGIES: PENICILLIN. MEDICATIONS: 1. Aztreonam. 2. Norvasc. 3. Sinemet. 4. Flagyl. 5. Requip. 6. Vancomycin. 7. Flomax. SOCIAL HISTORY: No tobacco, no alcohol, no illicit drugs. FAMILY HISTORY: Noncontributory. REVIEW OF SYSTEMS: Difficult to obtain, given the patient's mental status. He does admit to chills yesterday. PHYSICAL EXAMINATION: GENERAL: Well-developed male who is awake and alert, but confused. VITAL SIGNS: Temperature 99.3, BP 127/69, respirations 18, heart rate 77. HEENT: Head is atraumatic. Extraocular muscles are grossly intact. Pupils reactive to light. No icterus. Oropharynx moist mucosa without lesions. NECK: Supple without adenopathy. LUNGS: Clear breath sounds bilaterally. HEART: Regular S1, S2. No murmurs, rubs or gallops. ABDOMEN: Bowel sounds present. Soft, no tenderness appreciated. RECTAL: Not performed. EXTREMITIES: No clubbing, cyanosis or edema. SKIN: No rash. The skin of the face has a reddish hue. NEUROLOGIC: No gross focal findings. PSYCHIATRIC: Calm and cooperative. LABORATORY DATA: WBC 16.2, 88% neutrophils, hemoglobin 17.1, platelet count 270. Creatinine 1.0, estimated GFR 70. IMPRESSION: 1. Urinary tract infection. The patient is status post prostate seed placement. 2. Sepsis indicated by fever and white blood cell count elevation. The patient also had an episode of tachycardia as well. 3. Altered mental status, likely secondary to sepsis. RECOMMENDATIONS: 1. Continue vancomycin. 2. Continue Flagyl. 3. Continuous aztreonam. 4. Monitor cultures. 5. Monitor clinical status. Thank you for this consultation. The patient's progress will be followed along with you and further recommendations will be given upon followup. MD EDMUNDO Brandon/machelle , 01:07 PM , 01:19 PM
[2018-02-02] MEDS: Vancomycin Inj 1,250 MG in Sodium Chlor 0.9% Inj 250 ML IV.SIG SCH (19:20)
[2018-02-03] MEDS: Aztreonam Inj 2 GM in Sodium Chloride 0.9% Inj 100 ML IV.SIG SCH ×3 (01:55→17:25)
[2018-02-03] MEDS: Heparin - SQ 10,000 UNITS/ML Vial SQ SCH ×2 (05:09→17:24)
[2018-02-03 07:57] LABS: Calcium 8.4 mg/dL (8.5-10.1); Carbon Dioxide 20.3 meq/L (21.0-32.0); Potassium 3.7 meq/L (3.5-5.1)
[2018-02-03 07:59] LABS: Baso # (Auto) 0.1 th/mm3 (0.0-0.2); Baso % (Auto) 0.7 % (0.0-2.0); Eos % (Auto) 0.3 % (0.0-4.0); Hematocrit 44.6 % (39.0-51.0); Hemoglobin 15.3 gm/dL (13.0-17.0); Lymph # (Auto) 1.2 th/mm3 (1.0-4.8); Lymph % (Auto) 9.7 % (9.0-44.0); Mean Corpuscular HGB Conc 34.2 % (32.0-36.0); Mean Corpuscular Hemoglobin 31.5 pg (27.0-34.0); Mean Platelet Volume 7.5 fL (7.0-11.0); Mono # (Auto) 1.5 th/mm3 (0.0-0.9); Mono % (Auto) 12.4 % (0.0-8.0); Neut # (Auto) 9.4 th/mm3 (1.8-7.7); Neut % (Auto) 76.9 % (16.0-70.0); Platelet Count 236 th/mm3 (150-450); Red Blood Count 4.85 mil/mm3 (4.50-5.90); Red Cell Distribution Width 14.2 % (11.6-17.2); White Blood Count 12.2 th/mm3 (4.0-11.0)
[2018-02-03] MEDS: amLODIPine 5 MG Tablet PO SCH (08:11)
--- NOTE | 2018-02-03 11:52 | P.PN ---
Subjective Interval history: Nursing denies any acute events overnight. Patient himself wanting to go home. Cousin is at the bedside. Patient says he lives with his . Denies any pain or any new concerns. Physical Exam Vital signs: Vital Signs 02/02/18 12:00 02/02/18 16:00 02/02/18 20:00 Temperature 99.3 F 97.8 F 99.3 F Pulse Rate 74 86 93 H Respiratory Rate 18 18 19 Blood Pressure 127/69 165/74 H 119/96 H Pulse Oximetry 99 97 93 L 02/03/18 00:00 02/03/18 04:00 02/03/18 08:00 Temperature 98.6 F 98.6 F 98.8 F Pulse Rate 89 94 H 84 Respiratory Rate 17 16 20 Blood Pressure 121/56 L 118/55 L 125/68 Pulse Oximetry 94 L 94 L 94 L Intake & Output 02/02/18 02/03/18 02/03/18 18:59 06:59 18:59 Intake Total 780 / 780 562.5 / 562.5 100 / 100 Output Total 1900 / 1900 Balance -1120 / -1120 562.5 / 562.5 100 / 100 Weight 90.5 kg Intake: IV 300 / 300 562.5 / 562.5 100 / 100 Azactam Inj 2 GM In NS Inj 100 200 / 200 100 / 100 100 / 100 ML @ 200 mls/hr IV.SIG Q8H [facility] Rx#:[id number] Vancomycin Inj 1,250 MG In NS 262.5 / 262.5 Inj 250 ML @ 250 mls/hr IV.SIG Q18H [facility] Rx#:[id number] Flagyl 500 MG Inj 100 ML @ 100 100 / 100 200 / 200 mls/hr IV.SIG Q8H [facility] Rx#: [id number] Oral 480 / 480 Output: Urine 1900 / 1900 Other: Date of Last Bowel Movement 02/02/18 02/02/18 # Bowel Movements 1 Narrative: Clear lungs bilaterally, unlabored breathing Heart sounds regular rate and rhythm No suprapubic tenderness to palpation Sitting up in bed, awake and alert, no acute distress Results - Labs CBC & Chem 7: 02/03/18 06:25 02/03/18 06:25 Laboratory Results - last 24 hr 02/02/18 02/02/1818 01:44 02:14 12:10 WBC RBC Hgb Hct MCV MCH MCHC RDW Plt Count MPV Neut % (Auto) Lymph % (Auto) [place] % (Auto) Eos % (Auto) Baso % (Auto) Neut # (Auto) Lymph # (Auto) [place] # (Auto) Eos # (Auto) Baso # (Auto) WBC Differential Differential Comment Sodium 138 Potassium 3.8 Chloride 107 Carbon Dioxide 22.4 Anion Gap 9 BUN 13 Creatinine 1.00 Estimated GFR 74 L POC Glucose 108 Random Glucose 107 H Hemoglobin A1c 6.0 Calcium 8.3 L Magnesium 1.7 Total Bilirubin 1.1 H AST 28 ALT 33 Alkaline Phosphatase 73 Total Protein 7.2 Albumin 3.7 02/02/18 02/02/18 02/03/18 18:06 19:37 06:25 WBC 12.2 H RBC 4.85 Hgb 15.3 Hct 44.6 MCV 92.0 MCH 31.5 MCHC 34.2 RDW 14.2 Plt Count 236 MPV 7.5 Neut % (Auto) 76.9 H Lymph % (Auto) 9.7 [place] % (Auto) 12.4 H Eos % (Auto) 0.3 Baso % (Auto) 0.7 Neut # (Auto) 9.4 H Lymph # (Auto) 1.2 [place] # (Auto) 1.5 H Eos # (Auto) 0.0 Baso # (Auto) 0.1 WBC Differential . Differential Comment Auto diff final Sodium Potassium Chloride Carbon Dioxide Anion Gap BUN Creatinine Estimated GFR POC Glucose 119 H 120 H Random Glucose Hemoglobin A1c Calcium Magnesium Total Bilirubin AST ALT Alkaline Phosphatase Total Protein Albumin 02/03/18 02/03/18 06:25 08:43 WBC RBC Hgb Hct MCV MCH MCHC RDW Plt Count MPV Neut % (Auto) Lymph % (Auto) [place] % (Auto) Eos % (Auto) Baso % (Auto) Neut # (Auto) Lymph # (Auto) [place] # (Auto) Eos # (Auto) Baso # (Auto) WBC Differential Differential Comment Sodium 139 Potassium 3.7 Chloride 109 H Carbon Dioxide 20.3 L Anion Gap 10 BUN 11 Creatinine 0.89 Estimated GFR 84 L POC Glucose 94 Random Glucose 89 Hemoglobin A1c Calcium 8.4 L Magnesium Total Bilirubin AST ALT Alkaline Phosphatase Total Protein Albumin Microbiology 02/02/18 01:35 Clean Catch Urine Urine Culture - Final 10-50,000 cfu/mL mixed sam (probable contaminants) 02/02/18 01:44 Blood - Peripheral Aerobic Blood Culture - Preliminary No growth in 1 day 02/02/18 01:44 Blood - Peripheral Anaerobic Blood Culture - Preliminary No growth in 1 day 02/02/18 01:35 Blood - Peripheral Aerobic Blood Culture - Preliminary No growth in 1 day 02/02/18 01:35 Blood - Peripheral Anaerobic Blood Culture - Preliminary gram negative rods Assessment and Plan - Plan 73-year-old male with a history of Parkinson's, hyperlipidemia, hypertension, prostate cancer and diet-controlled diabetes who was brought to the ED for evaluation of frequent urination and difficulty walking. Urology has evaluated the patient, recommended medical management, signed off. sepsis likely secondary to bacteremia Sepsis element resolved. Urine culture is negative Gram-negative bacteremia Continue antibiotics per ID with vancomycin Flagyl and aztreonam, repeat blood cultures, ID following Weakness/unable to ambulate, most likely related to urosepsis -PT Hypertension, chronic -home medications Diabetes patient and states diet controlled -Accu-Cheks Parkinson's, chronic -home medications DVT prophylaxis: Heparin Discharge Planning: PT recommending rehab
[2018-02-03] MEDS: Vancomycin Inj 1,250 MG in Sodium Chlor 0.9% Inj 250 ML IV.SIG SCH (14:00)
--- NOTE | 2018-02-03 15:23 | P.PNID ---
Subjective Remarks: Patient reports that he feels some pressure in the right lower abdomen. Denies chills. Afebrile. Still confused. This is a 73-year-old white male who presented to the emergency department with respiratory symptoms. The patient was recently diagnosed with prostate cancer, and approximately 5 days ago, he underwent seed placement for treatment of the prostate cancer by his urologist. He reportedly developed difficulty walking yesterday evening and he was having frequent urination, and was brought to the emergency department for evaluation. The patient states that he was having shortness of breath. He is not a good historian and therefore, information is obtained from the medical record. The patient had a temperature of 102.9 degrees and white count was elevated at 16.2. Urinalysis was obtained and showed 88 white cells. This consultation is requested because of sepsis. Past Medical History: PAST MEDICAL HISTORY: Diabetes mellitus, hypertension, hyperlipidemia, benign prostatic hyperplasia, Parkinson's disease, prostate cancer, history of hernia repair, history of carpal tunnel repair. Allergies/Adverse Reactions: Allergies penicillin G Allergy (Severe, Unverified 02/02/18 00:38) Hives Objective Vital Signs 02/02/18 16:00 02/02/18 20:00 02/03/18 00:00 Temperature 97.8 F 99.3 F 98.6 F Pulse Rate 86 93 H 89 Respiratory Rate 18 19 17 Blood Pressure 165/74 H 119/96 H 121/56 L Pulse Oximetry 97 93 L 94 L 02/03/18 04:00 02/03/18 08:00 Temperature 98.6 F 98.8 F Pulse Rate 94 H 84 Respiratory Rate 16 20 Blood Pressure 118/55 L 125/68 Pulse Oximetry 94 L 94 L Intake & Output 02/02/18 02/03/18 02/03/18 18:59 06:59 18:59 Intake Total 780 / 780 562.5 / 562.5 100 / 100 Output Total 1900 / 1900 Balance -1120 / -1120 562.5 / 562.5 100 / 100 Weight 90.5 kg Intake: IV 300 / 300 562.5 / 562.5 100 / 100 Azactam Inj 2 GM In NS Inj 100 200 / 200 100 / 100 100 / 100 ML @ 200 mls/hr IV.SIG Q8H [facility] Rx#:[id number] Vancomycin Inj 1,250 MG In NS 262.5 / 262.5 Inj 250 ML @ 250 mls/hr IV.SIG Q18H [facility] Rx#:[id number] Flagyl 500 MG Inj 100 ML @ 100 100 / 100 200 / 200 mls/hr IV.SIG Q8H [facility] Rx#: [id number] Oral 480 / 480 Output: Urine 1900 / 1900 Other: Date of Last Bowel Movement 02/02/18 02/02/18 # Bowel Movements 1 02/03/18 13:40 Blood - Peripheral Aerobic Blood Culture - Pending 02/03/18 13:40 Blood - Peripheral Anaerobic Blood Culture - Pending 02/03/18 13:35 Blood - Peripheral Aerobic Blood Culture - Pending 02/03/18 13:35 Blood - Peripheral Anaerobic Blood Culture - Pending 02/02/18 01:35 Blood - Peripheral Aerobic Blood Culture - Preliminary No growth in 1 day 02/02/18 01:35 Blood - Peripheral Anaerobic Blood Culture - Preliminary Escherichia coli 02/02/18 01:35 Clean Catch Urine Urine Culture - Final 10-50,000 cfu/mL mixed sam (probable contaminants) 02/02/18 01:44 Blood - Peripheral Aerobic Blood Culture - Preliminary No growth in 1 day 02/02/18 01:44 Blood - Peripheral Anaerobic Blood Culture - Preliminary No growth in 1 day Lab - Hematology Results 02/02/18 02/03/18 01:44 06:25 WBC 16.2 H 12.2 H RBC 5.41 4.85 Hgb 17.1 H 15.3 Hct 48.5 44.6 MCV 89.7 92.0 MCH 31.7 31.5 MCHC 35.3 34.2 RDW 14.3 14.2 Plt Count 270 236 MPV 8.0 7.5 Neut % (Auto) 88.6 H 76.9 H Lymph % (Auto) 5.7 L 9.7 [place] % (Auto) 5.2 12.4 H Eos % (Auto) 0.1 0.3 Baso % (Auto) 0.4 0.7 Neut # (Auto) 14.3 H 9.4 H Lymph # (Auto) 0.9 L 1.2 [place] # (Auto) 0.8 1.5 H Eos # (Auto) 0.0 0.0 Baso # (Auto) 0.1 0.1 WBC Differential . . Differential Comment Auto diff final Auto diff final Lab - Chemistry Results 02/02/18 02/02/18 02/02/18 01:44 01:44 02:14 Sodium 138 Potassium 3.8 Chloride 107 Carbon Dioxide 22.4 Anion Gap 9 BUN 13 Creatinine 1.00 Estimated GFR 74 L POC Glucose Random Glucose 107 H Hemoglobin A1c 6.0 Lactic Acid 2.0 Calcium 8.3 L Magnesium 1.7 Total Bilirubin 1.1 H AST 28 ALT 33 Alkaline Phosphatase 73 Total Protein 7.2 Albumin 3.7 02/02/18 02/02/18 02/02/18 04:21 12:10 18:06 Sodium Potassium Chloride Carbon Dioxide Anion Gap BUN Creatinine Estimated GFR POC Glucose 128 H 108 119 H Random Glucose Hemoglobin A1c Lactic Acid Calcium Magnesium Total Bilirubin AST ALT Alkaline Phosphatase Total Protein Albumin 02/02/18 02/03/18 02/03/18 19:37 06:25 08:43 Sodium 139 Potassium 3.7 Chloride 109 H Carbon Dioxide 20.3 L Anion Gap 10 BUN 11 Creatinine 0.89 Estimated GFR 84 L POC Glucose 120 H 94 Random Glucose 89 Hemoglobin A1c Lactic Acid Calcium 8.4 L Magnesium Total Bilirubin AST ALT Alkaline Phosphatase Total Protein Albumin 02/03/18 12:16 Sodium Potassium Chloride Carbon Dioxide Anion Gap BUN Creatinine Estimated GFR POC Glucose 116 H Random Glucose Hemoglobin A1c Lactic Acid Calcium Magnesium Total Bilirubin AST ALT Alkaline Phosphatase Total Protein Albumin Imaging: ITS Impressions Abdomen/Pelvis CT 02/02/18 01:30 CONCLUSION: 1. Fat-containing left inguinal hernia. 2. Mild prostate enlargement with metallic localization seeds. Chest X-Ray 02/02/18 01:30 CONCLUSION: The appearance of the lungs is similar to September 2017 with some mild bilateral perihilar thickening. No peripheral infiltrates seen. Physical Exam: PHYSICAL EXAMINATION: GENERAL: Patient is more awake but appears slightly confused. HEENT: Head is atraumatic. Extraocular muscles are grossly intact. Pupils reactive to light. No icterus. Oropharynx moist mucosa without lesions. NECK: Supple without adenopathy. LUNGS: Clear breath sounds bilaterally. HEART: Regular S1, S2. No murmurs, rubs or gallops. ABDOMEN: Bowel sounds present. Soft, nontender. EXTREMITIES: No clubbing, cyanosis or edema. SKIN: No rash. The skin of the face has a reddish hue. NEUROLOGIC: No gross focal findings. PSYCHIATRIC: Calm and cooperative. Assessment and Plan - Plan IMPRESSION: 1. Urinary tract infection. The patient is status post prostate seed placement. 2. E. coli Sepsis. 3. Altered mental status, likely secondary to sepsis. Improving. RECOMMENDATIONS: 1. Stop vancomycin. 2. Stop Flagyl. 3. Continuous aztreonam. 4. Monitor repeat blood cultures to check for clearance of the bacteremia. 5. Monitor clinical status.
[2018-02-04] MEDS: Aztreonam Inj 2 GM in Sodium Chloride 0.9% Inj 100 ML IV.SIG SCH ×3 (01:43→17:53)
[2018-02-04] MEDS: Heparin - SQ 10,000 UNITS/ML Vial SQ SCH ×2 (06:05→17:54)
[2018-02-04] MEDS ORDERED: Pharmacy Ordered Lab Info OTHER ONE (07:45)
[2018-02-04] MEDS: LORazepam 0.5 MG Tablet PO PRN (09:39)
[2018-02-04] MEDS: amLODIPine 5 MG Tablet PO SCH (09:40)
--- NOTE | 2018-02-04 14:02 | P.PN ---
Subjective Interval history: Follow-up for sepsis, UTI, altered mental status: Patient confused, disoriented , attempting to get out of bed. Patient with underlying dementia per H&P. Following simple commands. No family at bedside. No fever. Difficult to obtain ROS Physical Exam Vital signs: Vital Signs 02/03/18 16:00 02/03/18 20:00 02/03/18 23:51 Temperature 98.2 F 98.8 F 97.1 F L Pulse Rate 77 75 88 Respiratory Rate 20 17 17 Blood Pressure 144/77 H 132/71 158/88 H Pulse Oximetry 98 94 L 94 L 02/04/18 00:24 02/04/18 04:00 02/04/18 04:07 Temperature 97.3 F L Pulse Rate 84 89 88 Respiratory Rate 18 Blood Pressure 145/86 H Pulse Oximetry 93 L 02/04/18 08:00 02/04/18 12:00 Temperature 98.6 F 97.7 F Pulse Rate 88 87 Respiratory Rate 19 20 Blood Pressure 163/104 H 137/92 H Pulse Oximetry 93 L 96 Intake & Output 02/03/18 02/04/18 02/04/18 18:59 06:59 18:59 Intake Total 900 / 900 580 / 580 100 / 100 Output Total 1225 / 1225 Balance -325 / -325 580 / 580 100 / 100 Weight 88.4 kg Intake: IV 300 / 300 100 / 100 100 / 100 Azactam Inj 2 GM In NS Inj 100 200 / 200 100 / 100 100 / 100 ML @ 200 mls/hr IV.SIG Q8H NOEMY Rx#:[id number] Flagyl 500 MG Inj 100 ML @ 100 100 / 100 mls/hr IV.SIG Q8H NOEMY Rx#: [id number] Oral 600 / 600 480 / 480 Output: Urine 1225 / 1225 Other: # Voids 10 Date of Last Bowel Movement 02/04/18 # Bowel Movements 0 # Incontinent Bowel Movements 1 Narrative: GENERAL: 73-year-old male, disoriented. Anxious SKIN: Warm and dry. HEAD: Atraumatic. Normocephalic. EYES: Pupils equal and round. No scleral icterus. No injection or drainage. ENT: No nasal bleeding or discharge. Mucous membranes pink and moist. NECK: Trachea midline. No JVD. CARDIOVASCULAR: Regular rate and rhythm. RESPIRATORY: No accessory muscle use. Clear to auscultation. Breath sounds equal bilaterally. GASTROINTESTINAL: Abdomen soft, non-tender, nondistended. Hepatic and splenic margins not palpable. MUSCULOSKELETAL: Extremities without clubbing, cyanosis, or edema. No obvious deformities. NEUROLOGICAL: Awake, oriented to self. Disoriented. Appears to move all extremities well PSYCHIATRIC: Disoriented Results - Labs CBC & Chem 7: 02/03/18 06:25 02/03/18 06:25 Laboratory Results - last 24 hr 02/02/18 02/03/18 02/03/18 02:14 17:00 19:59 Sodium 138 Potassium 3.8 Chloride 107 Carbon Dioxide 22.4 Anion Gap 9 BUN 13 Creatinine 1.00 Estimated GFR 74 L POC Glucose 107 135 H Random Glucose 107 H Calcium 8.3 L Magnesium 1.7 Total Bilirubin 1.1 H AST 28 ALT 33 Alkaline Phosphatase 73 Total Protein 7.2 Albumin 3.7 Vancomycin Trough 02/04/18 02/04/18 07:22 07:50 Sodium Potassium Chloride Carbon Dioxide Anion Gap BUN Creatinine Estimated GFR POC Glucose 101 Random Glucose Calcium Magnesium Total Bilirubin AST ALT Alkaline Phosphatase Total Protein Albumin Vancomycin Trough 1.5 L Microbiology 02/03/18 13:40 Blood - Peripheral Aerobic Blood Culture - Preliminary No growth in 1 day 02/03/18 13:40 Blood - Peripheral Anaerobic Blood Culture - Preliminary No growth in 1 day 02/03/18 13:35 Blood - Peripheral Aerobic Blood Culture - Preliminary No growth in 1 day 02/03/18 13:35 Blood - Peripheral Anaerobic Blood Culture - Preliminary No growth in 1 day 02/02/18 01:44 Blood - Peripheral Aerobic Blood Culture - Preliminary No growth in 2 days 02/02/18 01:44 Blood - Peripheral Anaerobic Blood Culture - Preliminary No growth in 2 days 02/02/18 01:35 Blood - Peripheral Aerobic Blood Culture - Preliminary No growth in 2 days 02/02/18 01:35 Blood - Peripheral Anaerobic Blood Culture - Preliminary Escherichia coli 02/02/18 01:35 Clean Catch Urine Urine Culture - Final 10-50,000 cfu/mL mixed sam (probable contaminants) Assessment and Plan - Assessment (1) Sepsis Code(s): A41.9 - Sepsis, unspecified organism Status: Acute (2) Acute metabolic encephalopathy Code(s): G93.41 - Metabolic encephalopathy Status: Acute (3) Dementia Code(s): F03.90 - Unspecified dementia without behavioral disturbance Status: Acute (4) UTI (urinary tract infection) Code(s): N39.0 - Urinary tract infection, site not specified Status: Acute - Plan 73-year-old male with a history of Parkinson's, hyperlipidemia, hypertension, prostate cancer and diet-controlled diabetes, possible underlying dementia who was brought to the ED for evaluation of frequent urination and difficulty walking. Urology has evaluated the patient, recommended medical management, signed off. sepsis likely secondary to bacteremia Sepsis element resolved. -Urine culture is negative -/2 Blood culture from 02/02 + for E. coli -Continue aztreonam Gram-negative bacteremia Continue antibiotics per ID aztreonam -Repeat blood cultures negative so far Appreciate ID input Acute metabolic encephalopathy likely secondary to sepsis Patient has underlying dementia as well We will check ammonia level in the morning Continue with antibiotics Weakness/unable to ambulate, most likely related to urosepsis -Out of bed with PT PT recommends SNF Hypertension, chronic -Continue Norvasc Diabetes patient and states diet controlled -Stable, diet controlled -Monitor Accu-Cheks before meals and at bedtime Parkinson's, chronic Possible underlying dementia -Continue Sinemet History of prostate cancer Recent urological procedure, had placement of seeds -appreciate urology input Continue with Flomax DVT prophylaxis: Heparin Case management consult for SNF placement Repeat labs in the morning Code Status: Full code Discussed Condition With: RN, pt, CM Discharge Planning: Poss dc 2 days, SNF vs C (1) Sepsis Qualifiers: Sepsis type: Escherichia coli Qualified Code(s): A41.51 - Sepsis due to Escherichia coli [E. coli] (3) Dementia Qualifiers: Dementia type: unspecified type Dementia behavioral disturbance: with behavioral disturbance Qualified Code(s): F03.91 - Unspecified dementia with behavioral disturbance (4) UTI (urinary tract infection) Qualifiers: Hematuria presence: without hematuria
[2018-02-04 15:16] LABS: Mean Corpuscular HGB Conc 33.3 % (32.0-36.0); Mean Corpuscular Hemoglobin 30.7 pg (27.0-34.0); Mean Corpuscular Volume 92.3 fL (80.0-100.0); Mean Platelet Volume 7.1 fL (7.0-11.0); Platelet Count 261 th/mm3 (150-450); Red Cell Distribution Width 14.4 % (11.6-17.2)
[2018-02-04 15:28] LABS: Calcium 8.6 mg/dL (8.5-10.1); Potassium 3.7 meq/L (3.5-5.1)
--- NOTE | 2018-02-04 23:06 | CT ---
EXAM DATE: 02/04/2018 11:01 PM EDT AGE/SEX: 73 years / Male INDICATIONS: Altered mental status. CLINICAL DATA: This is the patient's initial encounter. Patient reports that signs and symptoms have been present for 1 day and indicates a pain score of Nonresponsive. MEDICAL/SURGICAL HISTORY: Diabetes mellitus type II. Hypertension. Diabetes mellitus type II. Non e. RADIATION DOSE: 43.87 CTDI (mGy) COMPARISON: [facility] – [place]RA[place]/O CONTRAST, 09/21/2017. . TECHNIQUE: CT of the head without contrast. Using automated exposure control and adjustment of the mA and/or kV according to patient size, radiation dose was kept as low as reasonably achievable to ob tain optimal diagnostic quality images. DICOM format image data is available electronically for revi ew and comparison. FINDINGS: Cerebrum: The ventricles are normal for age. No evidence of midline shift, mass lesion, hemorrhage or acute infarction. No extraaxial fluid collections are seen. There is atrophy. Chronic low-attenua tion seen in the periventricular white matter. Posterior Fossa: The cerebellum and brainstem are intact. The 4th ventricle is midline. The cerebe llopontine angle is unremarkable. Extracranial: The visualized portion of the orbits is intact. Skull: The calvaria is intact. No evidence of skull fracture. CONCLUSION: No acute intracranial abnormality demonstrated. . Electronically signed by: John Chaparro MD 02/04/2018 11:05 PM EDT
--- NOTE | 2018-02-05 00:15 | P.PNADD ---
Addendum to Inpatient Note Reason for Addendum: Additional Documentation Additional information: S: At 9:59 PM [address]rs[address] Carreon and Mario were called for a [place] on [address] [place] Room 1416. Residents responded to the room where patient was observed to be making snoring noises with his mouth wide open, his eyes were wide open and intermittently his legs were shaking as if he was trying to walk while laying supine and raising his arms out in front of him. Patient's arms were in soft restraints and occasionally uttering gibberish. Mr. Ellis was admitted for sepsis secondary to E. coli UTI, bacteremia, altered mental status, dementia and Parkinson's disease. Nursing had just interest administered 1 mg Ativan IV that had no repairable effect upon patient's symptoms. Patient did not appear to be having any seizure like activity. Patient is on IV aztreonam for sepsis and bacteremia. O: Vital signs: T 99.9, HR 114, BP 154/79, Pulse Ox 95 % RA, RR 31 Vital Signs - 8 hr 02/04/18 16:15 02/04/18 19:25 02/04/18 20:00 Temperature 99.1 F 97.7 F 98 F Pulse Rate 92 H 98 H 72 Respiratory Rate 18 18 20 Blood Pressure 163/98 H 170/85 H 117/57 L Pulse Oximetry 95 02/04/18 21:47 02/04/18 21:55 Temperature Pulse Rate 104 H Respiratory Rate 18 Blood Pressure 165/83 H Pulse Oximetry 97 96 GENERAL: Elderly male with altered mental status, appeared diaphoretic, with intermittent bilateral alternating movements of legs and arms. Pt making snoring sounds with mouth wide open and eyes wide open. Confused and disoriented. Patient did respond to name being called. SKIN: Warm and dry. No rashes or lesions. Good turgor. HEAD: Normocephalic. Atraumatic. EYES: No scleral icterus. No injection or drainage. NECK: Supple, trachea midline. No meningeal signs. CARDIOVASCULAR: Tachycardia, regular rhythm without murmurs, gallops, or rubs. RESPIRATORY: Breath sounds equal bilaterally. No accessory muscle use. No wheezing or crackles. GASTROINTESTINAL: Abdomen soft, non-tender, nondistended. MUSCULOSKELETAL: No cyanosis, or edema. Hypertonia with cogwheel rigidity. BACK: Nontender without obvious deformity. No CVA tenderness. Laboratory Results - last 12 hr 02/04/18 02/04/18 02/04/18 14:46 14:46 14:46 WBC 9.0 RBC 5.20 Hgb 16.0 Hct 48.0 MCV 92.3 MCH 30.7 MCHC 33.3 RDW 14.4 Plt Count 261 MPV 7.1 Sodium 140 Potassium 3.7 Chloride 107 Carbon Dioxide 21.0 Anion Gap 12 BUN 15 Creatinine 1.00 Estimated GFR 74 L POC Glucose Random Glucose 143 H Lactic Acid Calcium 8.6 Ammonia 17 02/04/18 02/04/18 02/04/18 17:12 21:03 21:57 WBC RBC Hgb Hct MCV MCH MCHC RDW Plt Count MPV Sodium Potassium Chloride Carbon Dioxide Anion Gap BUN Creatinine Estimated GFR POC Glucose 105 117 H 119 H Random Glucose Lactic Acid Calcium Ammonia 02/04/18 23:20 WBC RBC Hgb Hct MCV MCH MCHC RDW Plt Count MPV Sodium Potassium Chloride Carbon Dioxide Anion Gap BUN Creatinine Estimated GFR POC Glucose Random Glucose Lactic Acid 2.[address] 02/04/18 22:20 CONCLUSION: No acute intracranial abnormality demonstrated. A/P: 73 YO male with sepsis secondary to bacteremia and E. coli UTI, metabolic encephalopathy, dementia, Parkinson's presents with altered mental status likely secondary to metabolic encephalopathy and/or drug reaction to increased dosing of Sinemet. Low suspicion of seizure-like activity. PLAN: -Ativan 4 mg IV (1 mg + 1 mg + 2 mg) -ABG pending -Lactic Acid 2.0 -CK pending -CT head w/o contrast negative -Pt appeared to respond well to Ativan and discussion of case with [employer], Dr Lopez, and Hospitalist, Dr Mariano, led to holding pt in current location vs transfer to ICU Pt SDW Dr Nava Martin
[2018-02-05 00:24] LABS: CKMB Percent 1.1 % (0.0-4.0); Creatine Kinase MB 15.6 ng/mL (0.5-3.6)
[2018-02-05 00:26] LABS: ABG Base Excess -1.2 mmol/L (-2-2); ABG PCO2 41 mmHg (38-42); ABG PO2 82 mmHg (61-120)
[2018-02-05] MEDS: Aztreonam Inj 2 GM in Sodium Chloride 0.9% Inj 100 ML IV.SIG SCH ×3 (02:09→18:21)
[2018-02-05] MEDS: Heparin - SQ 10,000 UNITS/ML Vial SQ SCH ×2 (06:00→18:21)
[2018-02-05] MEDS: Sod Chloride 0.9% Inj 1,000 ML IV.CONT SCH (08:20)
[2018-02-05] MEDS: amLODIPine 5 MG Tablet PO SCH (08:21)
--- NOTE | 2018-02-05 09:18 | P.PN ---
Subjective Interval history: Follow-up for sepsis, UTI, altered mental status: Patient seen and examined, snoring, at times holds breath. Unable to obtain any ROS. Briana called last night, patient was observed making snoring noises with mouth open, eyes wide open, intermittently legs were shaking as if he was trying to walk. He was given Ativan. It did not appear patient was having any seizure-like activity. No fever. Spoke to patient's on the phone, patient with prior history of heavy alcohol use, was admitted August 2014 and had workup for encephalopathy, stroke was ruled out. At that time he was started on Namenda. He stopped taking the medication approximately a year and a half ago. Patient follows up regularly with Dr. Jones for Parkinson's. Per , patient is forgetful, at times conversation does not make sense. His cousin who is at bedside believes that patient may still be drinking although does not believe so. She buys him nonalcoholic beer. Physical Exam Vital signs: Vital Signs 02/04/18 12:00 02/04/18 16:15 02/04/18 19:25 Temperature 97.7 F 99.1 F 97.7 F Pulse Rate 87 92 H 98 H Respiratory Rate 20 18 18 Blood Pressure 137/92 H 163/98 H 170/85 H Pulse Oximetry 96 02/04/18 20:00 02/04/18 21:47 02/04/18 21:55 Temperature 98 F Pulse Rate 96 H 104 H Respiratory Rate 20 18 Blood Pressure 117/57 L 165/83 H Pulse Oximetry 95 97 96 02/05/18 00:00 02/05/18 00:06 02/05/18 03:26 Temperature 97.3 F L 97.5 F L Pulse Rate 87 69 Respiratory Rate 20 16 Blood Pressure 162/70 H 139/77 Pulse Oximetry 96 96 99 02/05/18 04:00 02/05/18 08:00 Temperature Pulse Rate 70 63 Respiratory Rate Blood Pressure Pulse Oximetry Intake & Output 02/04/18 02/05/18 02/05/18 18:59 06:59 18:59 Intake Total 680 / 680 100 / 100 Balance 680 / 680 100 / 100 Weight 85.1 kg Intake: IV 200 / 200 100 / 100 Azactam Inj 2 GM In NS Inj 100 200 / 200 100 / 100 ML @ 200 mls/hr IV.SIG Q8H NOEMY Rx#:[id number] Oral 480 / 480 Other: # Incontinent Voids 2 # Urine Diapers 3 Date of Last Bowel Movement 02/04/18 Narrative: GENERAL: 73-year-old male, disoriented. Anxious SKIN: Warm and dry. HEAD: Atraumatic. Normocephalic. EYES: Pupils equal and round. No scleral icterus. No injection or drainage. ENT: No nasal bleeding or discharge. Mucous membranes pink and moist. NECK: Trachea midline. No JVD. CARDIOVASCULAR: Regular rate and rhythm. RESPIRATORY: No accessory muscle use. Clear to auscultation. Breath sounds equal bilaterally. GASTROINTESTINAL: Abdomen soft, non-tender, nondistended. Hepatic and splenic margins not palpable. MUSCULOSKELETAL: Extremities without clubbing, cyanosis, or edema. No obvious deformities. NEUROLOGICAL: Sleeping, snoring. Appears to move all extremities well. PSYCHIATRIC: Unable to assess Results - Labs CBC & Chem 7: 02/05/18 09:32 02/05/18 09:32 Laboratory Results - last 24 hr 02/04/18 02/04/18 02/04/18 14:46 14:46 14:46 WBC 9.0 RBC 5.20 Hgb 16.0 Hct 48.0 MCV 92.3 MCH 30.7 MCHC 33.3 RDW 14.4 Plt Count 261 MPV 7.1 Puncture Site Patient Temperature O2 Saturation ABG pH ABG pCO2 ABG pO2 ABG HCO3 ABG O2 Content ABG Base Excess ABG Methemoglobin Mingo Test Hemoglobin Carboxyhemoglobin O2 Delivery Device Liter Flow Critical Value Sodium 140 Potassium 3.7 Chloride 107 Carbon Dioxide 21.0 Anion Gap 12 BUN 15 Creatinine 1.00 Estimated GFR 74 L POC Glucose Random Glucose 143 H Lactic Acid Calcium 8.6 Ammonia 17 Total Creatine Kinase CK-MB (CK-2) CK-MB (CK-2) % 02/04/18 02/04/18 02/04/18 17:12 21:03 21:57 WBC RBC Hgb Hct MCV MCH MCHC RDW Plt Count MPV Puncture Site Patient Temperature O2 Saturation ABG pH ABG pCO2 ABG pO2 ABG HCO3 ABG O2 Content ABG Base Excess ABG Methemoglobin Mingo Test Hemoglobin Carboxyhemoglobin O2 Delivery Device Liter Flow Critical Value Sodium Potassium Chloride Carbon Dioxide Anion Gap BUN Creatinine Estimated GFR POC Glucose 105 117 H 119 H Random Glucose Lactic Acid Calcium Ammonia Total Creatine Kinase CK-MB (CK-2) CK-MB (CK-2) % 02/04/18 02/04/18 02/05/18 23:20 23:20 00:10 WBC RBC Hgb Hct MCV MCH MCHC RDW Plt Count MPV Puncture Site Right radial Patient Temperature 98.6 O2 Saturation 95 ABG pH 7.37 L ABG pCO2 41 ABG pO2 82 ABG HCO3 23 ABG O2 Content 21.2 H ABG Base Excess -1.2 ABG Methemoglobin 0.5 Mingo Test Present Hemoglobin 15.9 Carboxyhemoglobin 0.7 O2 Delivery Device Nasal cannula Liter Flow 2.00 Critical Value No Sodium Potassium Chloride Carbon Dioxide Anion Gap BUN Creatinine Estimated GFR POC Glucose Random Glucose Lactic Acid 2.0 Calcium Ammonia Total Creatine Kinase 1413 H CK-MB (CK-2) 15.6 H CK-MB (CK-2) % 1.1 02/05/18 07:44 WBC RBC Hgb Hct MCV MCH MCHC RDW Plt Count MPV Puncture Site Patient Temperature O2 Saturation ABG pH ABG pCO2 ABG pO2 ABG HCO3 ABG O2 Content ABG Base Excess ABG Methemoglobin Mingo Test Hemoglobin Carboxyhemoglobin O2 Delivery Device Liter Flow Critical Value Sodium Potassium Chloride Carbon Dioxide Anion Gap BUN Creatinine Estimated GFR POC Glucose 81 Random Glucose Lactic Acid Calcium Ammonia Total Creatine Kinase CK-MB (CK-2) CK-MB (CK-2) % Microbiology 02/03/18 13:40 Blood - Peripheral Aerobic Blood Culture - Preliminary No growth in 1 day 02/03/18 13:40 Blood - Peripheral Anaerobic Blood Culture - Preliminary No growth in 1 day 02/03/18 13:35 Blood - Peripheral Aerobic Blood Culture - Preliminary No growth in 1 day 02/03/18 13:35 Blood - Peripheral Anaerobic Blood Culture - Preliminary No growth in 1 day 02/02/18 01:44 Blood - Peripheral Aerobic Blood Culture - Preliminary No growth in 2 days 02/02/18 01:44 Blood - Peripheral Anaerobic Blood Culture - Preliminary No growth in 2 days 02/02/18 01:35 Blood - Peripheral Aerobic Blood Culture - Preliminary No growth in 2 days 02/02/18 01:35 Blood - Peripheral Anaerobic Blood Culture - Preliminary Escherichia coli - Imaging Impressions Head CT 02/04/18 22:20 CONCLUSION: No acute intracranial abnormality demonstrated. . Assessment and Plan - Assessment (1) Sepsis Code(s): A41.9 - Sepsis, unspecified organism Status: Acute (2) Acute metabolic encephalopathy Code(s): G93.41 - Metabolic encephalopathy Status: Acute (3) Dementia Code(s): F03.90 - Unspecified dementia without behavioral disturbance Status: Acute (4) UTI (urinary tract infection) Code(s): N39.0 - Urinary tract infection, site not specified Status: Acute - Plan 73-year-old male with a history of Parkinson's, hyperlipidemia, hypertension, prostate cancer and diet-controlled diabetes, possible underlying dementia who was brought to the ED for evaluation of frequent urination and difficulty walking. Urology has evaluated the patient, recommended medical management, signed off. sepsis likely secondary to bacteremia Sepsis element resolved. -Urine culture is negative -1/2 Blood culture from 02/02 + for E. coli -Continue aztreonam Gram-negative bacteremia Continue antibiotics per ID aztreonam -Repeat blood cultures negative so far Appreciate ID input Acute metabolic encephalopathy likely multifactorial. Briana called 02/04. Patient has possible underlying dementia, stopped taking Namenda 1 year ago. Prior history of heavy alcohol use, does not believe that he drinks anymore however other family members believe that he may still be drinking. Possible EtOH withdrawal Ammonia level normal. CT of the head negative, no acute findings We will check EEG, MRI of the brain Consult neurology Seizure precautions Continue with Ativan as needed -We will check TSH and B12 Rhabdomyolysis, likely secondary to increased agitation. CPK 1413 We will hydrate with normal saline at 50 an hour Follow CPK Monitor renal function Snoring, patient at times stops breathing. Patient likely has component of sleep apnea Will need workup as outpatient Monitor sats Continue with oxygen at 2 L Weakness/unable to ambulate, most likely related to urosepsis -Out of bed with PT PT recommends SNF Hypertension, chronic -Continue Norvas Diabetes patient and states diet controlled -Stable, diet controlled -Monitor Accu-Cheks before meals and at bedtime Parkinson's, chronic Possible underlying dementia-patient was on Namenda at one point which he stopped taking a year ago -Continue Sinemet History of prostate cancer Recent urological procedure, had placement of seeds -appreciate urology input Continue with Flomax DVT prophylaxis: Heparin Case management consult for SNF placement Repeat CBC, BMP, ammonia, and CPK in the morning Code Status: Full code Discussed Condition With: RN, pt's , CM Discharge Planning: Not ready for dc yet, confused. (1) Sepsis Qualifiers: Sepsis type: Escherichia coli Qualified Code(s): A41.51 - Sepsis due to Escherichia coli [E. coli] (3) Dementia Qualifiers: Dementia type: unspecified type Dementia behavioral disturbance: with behavioral disturbance Qualified Code(s): F03.91 - Unspecified dementia with behavioral disturbance (4) UTI (urinary tract infection) Qualifiers: Hematuria presence: without hematuria
[2018-02-05 09:55] LABS: Hematocrit 44.9 % (39.0-51.0); Hemoglobin 15.5 gm/dL (13.0-17.0); Mean Corpuscular HGB Conc 34.6 % (32.0-36.0); Mean Corpuscular Hemoglobin 31.3 pg (27.0-34.0); Mean Corpuscular Volume 90.7 fL (80.0-100.0); Mean Platelet Volume 6.9 fL (7.0-11.0); Platelet Count 279 th/mm3 (150-450); Red Blood Count 4.95 mil/mm3 (4.50-5.90); Red Cell Distribution Width 14.1 % (11.6-17.2); White Blood Count 8.4 th/mm3 (4.0-11.0)
[2018-02-05 10:22] LABS: Calcium 8.6 mg/dL (8.5-10.1); Carbon Dioxide 23.6 meq/L (21.0-32.0); Potassium 3.2 meq/L (3.5-5.1)
[2018-02-05] MEDS ORDERED: Gadobutrol PF 10 MMOL/10 ML Vial (for RAD) IV.SIG ONE (12:52)
[2018-02-05] MEDS ORDERED: Potassium Chlor 10 mEq Premix 10 MEQ/100 ML PIGGYBACK IV.SIG ONE (13:10)
--- NOTE | 2018-02-05 13:12 | MR ---
EXAM DATE: 02/05/2018 1:05 PM EDT AGE/SEX: 73 years / Male INDICATIONS: Altered mental status. CLINICAL DATA: This is the patient's subsequent encounter. Patient reports that signs and symptoms h ave been present for 4 - 6 days and indicates a pain score of Nonresponsive. MEDICAL/SURGICAL HISTORY: Carcinoma, prostatic. Parkinson's disease. Hypertension. dementia, diabetes Carpal tunnel syndrome. hernia, prostate seeds COMPARISON: [facility] – [place], CT HEAD W/O CONTRAST, 02/04/2018. . TECHNIQUE: Multiplanar, multisequence examination of the brain was performed without and with 8.5 ml Gadavist (gadobutrol) contrast as a single exam dose. FINDINGS: Cerebrum: The ventricles are normal for age with mild to moderate atrophic change. No evidence of mi dline shift, mass lesion, hemorrhage or acute infarction. No extraaxial fluid collections are seen. The pituitary gland and suprasellar cistern are normal in configuration. White Matter: No significant signal abnormalities are seen in the white matter. Posterior Fossa: The cerebellum and brainstem are intact. The 4th ventricle is midline. The cerebel lopontine angle is unremarkable. The cerebellar tonsils are normal in position. Diffusion Imaging: No focal areas of restricted diffusion are seen. No evidence of acute infarction . Extracranial: The visualized portions of the orbits and paranasal sinuses are unremarkable. Post Contrast: No abnormal areas of parenchymal or dural enhancement. No evidence of blood-brain ba rrier breakdown. CONCLUSION: 1. No acute hemorrhage, mass or stroke. Electronically signed by: Bird Swan MD 02/05/2018 1:10 PM EDT
--- NOTE | 2018-02-05 15:33 | P.PNID ---
Subjective Remarks: Patient noted to be extremely confused this am. D/W RN. Now oriented and answers questions but looks lethargic. Denies chills, abdomen pain. Afebrile. This is a 73-year-old white male who presented to the emergency department with respiratory symptoms. The patient was recently diagnosed with prostate cancer, and approximately 5 days ago, he underwent seed placement for treatment of the prostate cancer by his urologist. He reportedly developed difficulty walking yesterday evening and he was having frequent urination, and was brought to the emergency department for evaluation. The patient states that he was having shortness of breath. He is not a good historian and therefore, information is obtained from the medical record. The patient had a temperature of 102.9 degrees and white count was elevated at 16.2. Urinalysis was obtained and showed 88 white cells. This consultation is requested because of sepsis. Past Medical History: PAST MEDICAL HISTORY: Diabetes mellitus, hypertension, hyperlipidemia, benign prostatic hyperplasia, Parkinson's disease, prostate cancer, history of hernia repair, history of carpal tunnel repair. Allergies/Adverse Reactions: Allergies penicillin G Allergy (Severe, Unverified 02/02/18 00:38) Hives Objective Vital Signs 02/04/18 16:15 02/04/18 19:25 02/04/18 20:00 Temperature 99.1 F 97.7 F 98 F Pulse Rate 92 H 98 H 96 H Respiratory Rate 18 18 20 Blood Pressure 163/98 H 170/85 H 117/57 L Pulse Oximetry 95 02/04/18 21:47 02/04/18 21:55 02/05/18 00:00 Temperature 97.3 F L Pulse Rate 104 H 87 Respiratory Rate 18 20 Blood Pressure 165/83 H 162/70 H Pulse Oximetry 97 96 96 02/05/18 00:06 02/05/18 03:26 02/05/18 04:00 Temperature 97.5 F L Pulse Rate 69 70 Respiratory Rate 16 Blood Pressure 139/77 Pulse Oximetry 96 99 02/05/18 08:00 02/05/18 14:18 Temperature 98.6 F 98.7 F Pulse Rate 81 80 Respiratory Rate 19 19 Blood Pressure 135/89 154/89 H Pulse Oximetry 98 99 Intake & Output 02/04/18 02/05/18 02/05/18 18:59 06:59 18:59 Intake Total 680 / 680 100 / 100 200 / 200 Balance 680 / 680 100 / 100 200 / 200 Weight 85.1 kg Intake: IV 200 / 200 100 / 100 200 / 200 Azactam Inj 2 GM In NS Inj 100 200 / 200 100 / 100 100 / 100 ML @ 200 mls/hr IV.SIG Q8H [facility] Rx#:[id number] KCl 10 mEq Premix Inj 10 meq In 100 / 100 100 ml @ 100 mls/hr IV.SIG ONCE ONE Rx#:[id number] Oral 480 / 480 Other: # Incontinent Voids 2 # Urine Diapers 3 Date of Last Bowel Movement 02/04/18 02/04/18 02/03/18 13:40 Blood - Peripheral Aerobic Blood Culture - Preliminary No growth in 2 days 02/03/18 13:40 Blood - Peripheral Anaerobic Blood Culture - Preliminary No growth in 2 days 02/03/18 13:35 Blood - Peripheral Aerobic Blood Culture - Preliminary No growth in 2 days 02/03/18 13:35 Blood - Peripheral Anaerobic Blood Culture - Preliminary No growth in 2 days 02/02/18 01:44 Blood - Peripheral Aerobic Blood Culture - Preliminary No growth in 3 days 02/02/18 01:44 Blood - Peripheral Anaerobic Blood Culture - Preliminary No growth in 3 days 02/02/18 01:35 Blood - Peripheral Aerobic Blood Culture - Preliminary No growth in 3 days 02/02/18 01:35 Blood - Peripheral Anaerobic Blood Culture - Final Escherichia coli 02/02/18 01:35 Clean Catch Urine Urine Culture - Final 10-50,000 cfu/mL mixed sam (probable contaminants) Lab - Hematology Results 02/04/18 02/05/18 14:46 09:32 WBC 9.0 8.4 RBC 5.20 4.95 Hgb 16.0 15.5 Hct 48.0 44.9 MCV 92.3 90.7 MCH 30.7 31.3 MCHC 33.3 34.6 RDW 14.4 14.1 Plt Count 261 279 MPV 7.1 6.9 L Lab - Chemistry Results 02/02/18 02/03/18 02/03/18 02:14 17:00 19:59 Sodium 138 Potassium 3.8 Chloride 107 Carbon Dioxide 22.4 Anion Gap 9 BUN 13 Creatinine 1.00 Estimated GFR 74 L POC Glucose 107 135 H Random Glucose 107 H Lactic Acid Calcium 8.3 L Magnesium 1.7 Total Bilirubin 1.1 H AST 28 ALT 33 Alkaline Phosphatase 73 Ammonia Total Creatine Kinase CK-MB (CK-2) CK-MB (CK-2) % Total Protein 7.2 Albumin 3.7 02/04/18 02/04/18 02/04/18 07:22 14:46 14:46 Sodium 140 Potassium 3.7 Chloride 107 Carbon Dioxide 21.0 Anion Gap 12 BUN 15 Creatinine 1.00 Estimated GFR 74 L POC Glucose 101 Random Glucose 143 H Lactic Acid Calcium 8.6 Magnesium Total Bilirubin AST ALT Alkaline Phosphatase Ammonia 17 Total Creatine Kinase CK-MB (CK-2) CK-MB (CK-2) % Total Protein Albumin 02/04/18 02/04/18 02/04/18 17:12 21:03 21:57 Sodium Potassium Chloride Carbon Dioxide Anion Gap BUN Creatinine Estimated GFR POC Glucose 105 117 H 119 H Random Glucose Lactic Acid Calcium Magnesium Total Bilirubin AST ALT Alkaline Phosphatase Ammonia Total Creatine Kinase CK-MB (CK-2) CK-MB (CK-2) % Total Protein Albumin 02/04/18 02/04/18 02/05/18 23:20 23:20 07:44 Sodium Potassium Chloride Carbon Dioxide Anion Gap BUN Creatinine Estimated GFR POC Glucose 81 Random Glucose Lactic Acid 2.0 Calcium Magnesium Total Bilirubin AST ALT Alkaline Phosphatase Ammonia Total Creatine Kinase 1413 H CK-MB (CK-2) 15.6 H CK-MB (CK-2) % 1.1 Total Protein Albumin 02/05/18 02/05/18 09:32 12:04 Sodium 143 Potassium 3.2 L Chloride 108 H Carbon Dioxide 23.6 Anion Gap 11 BUN 17 Creatinine 0.87 Estimated GFR 87 L POC Glucose 79 Random Glucose 78 Lactic Acid Calcium 8.6 Magnesium Total Bilirubin AST ALT Alkaline Phosphatase Ammonia Total Creatine Kinase CK-MB (CK-2) CK-MB (CK-2) % Total Protein Albumin Imaging: ITS Impressions Abdomen/Pelvis CT 02/02/18 01:30 CONCLUSION: 1. Fat-containing left inguinal hernia. 2. Mild prostate enlargement with metallic localization seeds. Chest X-Ray 02/02/18 01:30 CONCLUSION: The appearance of the lungs is similar to September 2017 with some mild bilateral perihilar thickening. No peripheral infiltrates seen. Head CT 02/04/18 22:20 CONCLUSION: No acute intracranial abnormality demonstrated. . Head MRI 02/05/18 00:00 CONCLUSION: 1. No acute hemorrhage, mass or stroke. Physical Exam: PHYSICAL EXAMINATION: GENERAL: Patient is lethargic. HEENT: Head is atraumatic. Extraocular muscles are grossly intact. Pupils reactive to light. No icterus. Oropharynx moist mucosa without lesions. NECK: Supple without adenopathy. LUNGS: Clear breath sounds. HEART: Regular S1, S2. No murmurs, rubs or gallops. ABDOMEN: Bowel sounds present. Soft, nontender. EXTREMITIES: No clubbing, cyanosis or edema. SKIN: No rash. The skin of the face has a reddish hue. NEUROLOGIC: No gross focal findings. speech slightly slurred. PSYCHIATRIC: Calm and cooperative. Assessment and Plan - Plan IMPRESSION: 1. Urinary tract infection. The patient is status post prostate seed placement. 2. E. coli Sepsis. 3. Altered mental status, likely secondary to sepsis. waxing and waning. RECOMMENDATIONS: 1. Continue aztreonam. 2. Repeat UA/C&S. 3. Monitor clinical status.
--- NOTE | 2018-02-05 16:49 | MB ---
cc: Eulogio Jones MD, PhD DATE: 02/05/2018 REASON FOR CONSULTATION: Parkinson disease, rule out stroke. HISTORY OF PRESENT ILLNESS: This is a 73-year-old man who has Parkinson disease, hypertension who developed difficulty with his balance, generalized weakness and some mild confusion. He also has an underlying dementia. He is having frequent urination as well; developed diffuse tremors in both upper and lower extremities with no loss of consciousness. Received Ativan with resolution. Today, he is more stable. PAST MEDICAL HISTORY: History of Parkinson's disease, BPH, diabetes, hyperlipidemia, hypertension, prostate cancer. CURRENT MEDICATIONS: 1. Aztreonam 2. Sinemet 25/100 t.i.d. 3. Ativan p.r.n. 4. Requip 2 mg t.i.d. 5. Senokot. 6. Flomax. NEUROLOGIC EXAMINATION: VITAL SIGNS: Blood pressure 154/89, pulse is 80, respiratory rate 19, temperature 98 degrees. HIGHER CORTICAL FUNCTION: Alert. He is oriented x3. Speech is hypophonic. He follows simple commands. Cranial nerves: He has got diminished facial expressiveness. There is no facial asymmetry. The extraocular movements are normal. Pupils equal and reactive. Motor exam: He has no focal deficit. He is moderately bradykinetic with cogwheel rigidity, 5/5 ____. He has got mild resting tremors. Reflexes are symmetric. IMAGING STUDIES: 1. CT of the head is normal for age. 2. MRI of the brain is normal for age. No acute changes identified. There is no NPH. LABORATORY DATA: The white count is 16,200, hemoglobin 17.1, hematocrit 48%, platelets 270,000. His sodium is 143, potassium 3.2, chloride 108, CO2 24, BUN 17, creatinine 0.7, GFR is 87, glucose 78. Urinalysis: He has got 88 WBCs, moderate leukocyte esterase, 4 RBCs. Blood culture: There is no growth in 3 days. Urine culture is mixed sam. IMPRESSION: Parkinson disease. His recent weakness, mental status changes and tremors are probably related to sepsis and urinary tract infection. No evidence of stroke on the MRI. RECOMMENDATION: From the neurologic standpoint, continue the current medication for Parkinson's which is the Sinemet and Requip. Eulogio Jones MD, PhD BRIEN/veda/lindsey , 03:13 PM , 03:21 PM
--- NOTE | 2018-02-05 16:50 | MG ---
cc: Leigha De La Cruz MD EEG NUMBER: [id number] REFERRING CLINICIAN: Kelley Lawson NP. ROOM NUMBER: The patient is in room 1416. CLINICAL HISTORY: With photic stimulation drowsy, asleep study. CT negative. Admitted with walking issues. Temperature was 102.8. He has a history of Parkinson's and prostate cancer. MEDICATIONS: 1. Requip. 2. Heparin. 3. Norvasc. 4. Flomax. 5. Ativan was given at 9:39 a.m. 0.5 mg. DESCRIPTION OF RECORD: The patient seems to exhibit overall moderate slowing 3 Hz - 4 Hz background. Seems that he is asleep or sedated, not clear, but he is snoring. EKG looks sinus. Myogenic artifact notable. Background continuous predominantly of delta, theta frequency slowing. There is no appreciable epileptiform features. Photic stimulation did elicit a mild driving response. IMPRESSION: Moderate slowing of background; may be related to an encephalopathic process versus medication effect; however, no epileptiform features were seen. Clinical correlation. Leigha De La Cruz MD DF/veda , 04:00 PM , 04:06 PM
[2018-02-05 18:31] LABS: Bilirubin,Urine Negative (Negative); Clarity,Urine Clear (Clear); Color,Urine Yellow (Yellw/Straw); Glucose,Urine (UA) Negative (Negative); Leukocyte Esterase,Urine Trace (Negative); Mucus,Urine Few /lpf (Occasional); Nitrite,Urine Negative (Negative); Specific Gravity,Urine 1.028 (1.002-1.035)
[2018-02-05] MEDS: LORazepam 0.5 MG Tablet PO PRN (23:39)
[2018-02-06] MEDS: Aztreonam Inj 2 GM in Sodium Chloride 0.9% Inj 100 ML IV.SIG SCH ×3 (02:00→17:06)
[2018-02-06] MEDS: Sod Chloride 0.9% Inj 1,000 ML IV.CONT SCH (05:15)
[2018-02-06] MEDS: Heparin - SQ 10,000 UNITS/ML Vial SQ SCH ×2 (05:30→17:09)
[2018-02-06 07:35] LABS: Hematocrit 46.8 % (39.0-51.0); Mean Corpuscular HGB Conc 34.3 % (32.0-36.0); Mean Corpuscular Hemoglobin 31.1 pg (27.0-34.0); Mean Corpuscular Volume 90.7 fL (80.0-100.0); Mean Platelet Volume 6.8 fL (7.0-11.0); Platelet Count 310 th/mm3 (150-450); Red Blood Count 5.16 mil/mm3 (4.50-5.90); Red Cell Distribution Width 14.3 % (11.6-17.2); White Blood Count 8.5 th/mm3 (4.0-11.0)
[2018-02-06 08:05] LABS: Anion Gap 11 meq/L (5-15); Blood Urea Nitrogen 15 mg/dL (7-18); Calcium 8.8 mg/dL (8.5-10.1); Carbon Dioxide 21.3 meq/L (21.0-32.0); Chloride 109 meq/L (98-107); Glomerular Filtration Rate Greater Than 89 mL/min (>89); Glucose,Random 96 mg/dL (74-106); Potassium 3.5 meq/L (3.5-5.1); Sodium 141 meq/L (136-145)
[2018-02-06 08:19] LABS: Creatine Kinase 1279 U/L (39-308)
[2018-02-06] MEDS: amLODIPine 5 MG Tablet PO SCH (08:37)
[2018-02-06 08:38] LABS: CKMB Percent 1.2 % (0.0-4.0); Creatine Kinase MB 14.9 ng/mL (0.5-3.6)
[2018-02-06] MEDS ORDERED: Potassium Chloride 25 MEQ Effervescent Tablet PO ONE (11:17)
--- NOTE | 2018-02-06 11:20 | P.PN ---
Subjective Interval history: Follow-up for sepsis, UTI, altered mental status: Patient remains altered, although more awake today. Able to provide name, tremulous. Conversation does not make sense. Follow simple commands. No fever. Unable to obtain ROS. Physical Exam Vital signs: Vital Signs 02/05/18 14:18 02/05/18 15:25 02/05/18 16:00 Temperature 98.7 F 97.8 F 98.8 F Pulse Rate 80 80 74 Respiratory Rate 19 18 18 Blood Pressure 154/89 H 119/84 112/70 Pulse Oximetry 99 98 02/05/18 20:00 02/05/18 23:00 02/06/18 00:00 Temperature 97.4 F L 97.7 F Pulse Rate 73 76 79 Respiratory Rate 17 18 Blood Pressure 161/65 H 134/68 Pulse Oximetry 96 95 02/06/18 04:00 02/06/18 08:00 02/06/18 08:12 Temperature 99 F 96.4 F L Pulse Rate 88 90 87 Respiratory Rate 18 18 Blood Pressure 155/75 H 169/86 H Pulse Oximetry 95 94 L Intake & Output 02/05/18 02/06/18 02/06/18 18:59 06:59 18:59 Intake Total 630 / 630 1430 / 1430 100 / 100 Output Total 800 / 800 650 / 650 1200 / 1200 Balance -170 / -170 780 / 780 -1100 / -1100 Intake: IV 300 / 300 1100 / 1100 100 / 100 NS Inj 1,000 ML @ 50 mls/hr IV. 1000 / 1000 CONT .Q20H [facility] Rx#:[id number] Azactam Inj 2 GM In NS Inj 100 200 / 200 100 / 100 100 / 100 ML @ 200 mls/hr IV.SIG Q8H [facility] Rx#:[id number] KCl 10 mEq Premix Inj 10 meq In 100 / 100 100 ml @ 100 mls/hr IV.SIG ONCE ONE Rx#:[id number] Oral 330 / 330 330 / 330 Output: Urine 800 / 800 650 / 650 1200 / 1200 Other: Date of Last Bowel Movement 02/04/18 02/05/18 # Bowel Movements 0 Narrative: GENERAL: 73-year-old male, disoriented. Anxious SKIN: Warm and dry. HEAD: Atraumatic. Normocephalic. EYES: Pupils equal and round. No scleral icterus. No injection or drainage. ENT: No nasal bleeding or discharge. Mucous membranes pink and moist. NECK: Trachea midline. No JVD. CARDIOVASCULAR: Regular rate and rhythm. RESPIRATORY: No accessory muscle use. Clear to auscultation. Breath sounds equal bilaterally. GASTROINTESTINAL: Abdomen soft, non-tender, nondistended. Hepatic and splenic margins not palpable. MUSCULOSKELETAL: Extremities without clubbing, cyanosis, or edema. No obvious deformities. NEUROLOGICAL: Sleeping, snoring. Appears to move all extremities well. PSYCHIATRIC: Unable to assess Results - Labs CBC & Chem 7: 02/06/18 07:08 02/06/18 07:08 Laboratory Results - last 24 hr 02/05/18 02/05/18 02/05/18 09:32 09:32 12:04 WBC RBC Hgb Hct MCV MCH MCHC RDW Plt Count MPV Sodium Potassium Chloride Carbon Dioxide Anion Gap BUN Creatinine Estimated GFR POC Glucose 79 Random Glucose Calcium Total Creatine Kinase CK-MB (CK-2) CK-MB (CK-2) % Vitamin B12 399 TSH 5.000 H Urine Color Urine Clarity Urine pH Ur Specific [place] Urine Protein Urine Glucose (UA) Urine Ketones Urine Occult Blood Urine Nitrate Urine Bilirubin Urine Urobilinogen Ur Leukocyte Esterase Urine RBC Urine WBC Granular Casts Urine Mucus Micro UA Comment Ur Microscopic Review Urine Culture Comments 02/05/18 02/06/18 02/06/18 15:15 07:08 07:08 WBC 8.5 RBC 5.16 Hgb 16.0 Hct 46.8 MCV 90.7 MCH 31.1 MCHC 34.3 RDW 14.3 Plt Count 310 MPV 6.8 L Sodium 141 Potassium 3.5 Chloride 109 H Carbon Dioxide 21.3 Anion Gap 11 BUN 15 Creatinine 0.82 Estimated GFR Greater than 89 POC Glucose Random Glucose 96 Calcium 8.8 Total Creatine Kinase 1279 H CK-MB (CK-2) 14.9 H CK-MB (CK-2) % 1.2 Vitamin B12 TSH Urine Color Yellow Urine Clarity Clear Urine pH 5.0 Ur Specific [place] 1.028 Urine Protein Negative Urine Glucose (UA) Negative Urine Ketones 20 Urine Occult Blood Small H Urine Nitrate Negative Urine Bilirubin Negative Urine Urobilinogen Less than 2 Ur Leukocyte Esterase Trace H Urine RBC 10 H Urine WBC 7 H Granular Casts 1 Urine Mucus Few H Micro UA Comment Culture not ind Ur Microscopic Review Not Reportable Urine Culture Comments Culture not ind 02/06/18 07:55 WBC RBC Hgb Hct MCV MCH MCHC RDW Plt Count MPV Sodium Potassium Chloride Carbon Dioxide Anion Gap BUN Creatinine Estimated GFR POC Glucose 94 Random Glucose Calcium Total Creatine Kinase CK-MB (CK-2) CK-MB (CK-2) % Vitamin B12 TSH Urine Color Urine Clarity Urine pH Ur Specific [place] Urine Protein Urine Glucose (UA) Urine Ketones Urine Occult Blood Urine Nitrate Urine Bilirubin Urine Urobilinogen Ur Leukocyte Esterase Urine RBC Urine WBC Granular Casts Urine Mucus Micro UA Comment Ur Microscopic Review Urine Culture Comments Microbiology 02/03/18 13:40 Blood - Peripheral Aerobic Blood Culture - Preliminary No growth in 3 days 02/03/18 13:40 Blood - Peripheral Anaerobic Blood Culture - Preliminary No growth in 3 days 02/03/18 13:35 Blood - Peripheral Aerobic Blood Culture - Preliminary No growth in 3 days 02/03/18 13:35 Blood - Peripheral Anaerobic Blood Culture - Preliminary No growth in 3 days 02/02/18 01:44 Blood - Peripheral Aerobic Blood Culture - Preliminary No growth in 4 days 02/02/18 01:44 Blood - Peripheral Anaerobic Blood Culture - Preliminary No growth in 4 days 02/02/18 01:35 Blood - Peripheral Aerobic Blood Culture - Preliminary No growth in 4 days 02/02/18 01:35 Blood - Peripheral Anaerobic Blood Culture - Final Escherichia coli - Imaging Impressions Head MRI 02/05/18 00:00 CONCLUSION: 1. No acute hemorrhage, mass or stroke. Assessment and Plan - Assessment (1) Sepsis Code(s): A41.9 - Sepsis, unspecified organism Status: Acute (2) Acute metabolic encephalopathy Code(s): G93.41 - Metabolic encephalopathy Status: Acute (3) Dementia Code(s): F03.90 - Unspecified dementia without behavioral disturbance Status: Acute (4) UTI (urinary tract infection) Code(s): N39.0 - Urinary tract infection, site not specified Status: Acute - Plan 73-year-old male with a history of Parkinson's, hyperlipidemia, hypertension, prostate cancer and diet-controlled diabetes, possible underlying dementia who was brought to the ED for evaluation of frequent urination and difficulty walking. Urology has evaluated the patient, recommended medical management, signed off. sepsis likely secondary to bacteremia Sepsis element resolved. -Urine culture is negative -1/2 Blood culture from 02/02 + for E. coli -Continue aztreonam -UA repeated yesterday per ID recommendations, improved. No culture indicated Gram-negative bacteremia Continue antibiotics per ID aztreonam -Repeat blood cultures negative so far Appreciate ID input Acute metabolic encephalopathy likely multifactorial. Briana called 02/04. Patient has possible underlying dementia, stopped taking Namenda 1 year ago. Prior history of heavy alcohol use, does not believe that he drinks anymore however other family members believe that he may still be drinking. Possible EtOH withdrawal Ammonia level normal. CT of the head negative, no acute findings Slightly improved. EEG shows moderate encephalopathy, MRI of the brain negative. Appreciate neurology input, likely multifactorial, sepsis. Seizure precautions Continue with Ativan as needed -TSH mildly elevated, will check free T4. B12 399, was given 1000 micrograms IM x1. Rhabdomyolysis, likely secondary to increased agitation. Initial CPK 1413 Continue with cautious hydration CPK trending down, 1279 -renal function stable Replace electrolytes as needed Snoring, patient at times stops breathing. Patient likely has component of sleep apnea Will need workup as outpatient Monitor sats Continue with oxygen at 2 L Weakness/unable to ambulate, most likely related to urosepsis -Out of bed with PT PT recommends SNF Hypertension, chronic -Continue Norvas Diabetes patient and states diet controlled -Stable, diet controlled -Monitor Accu-Cheks before meals and at bedtime Parkinson's, chronic Possible underlying dementia-patient was on Namenda at one point which he stopped taking a year ago -Continue Sinemet History of prostate cancer Recent urological procedure, had placement of seeds -appreciate urology input Continue with Flomax DVT prophylaxis: Heparin Case management consult for SNF placement Mentation slightly improved, however remains altered. Possible discharge 2 days Code Status: Full code Discussed Condition With: RN, pt, CM Discharge Planning: Not ready for dc yet, confused. (1) Sepsis Qualifiers: Sepsis type: Escherichia coli Qualified Code(s): A41.51 - Sepsis due to Escherichia coli [E. coli] (3) Dementia Qualifiers: Dementia type: unspecified type Dementia behavioral disturbance: with behavioral disturbance Qualified Code(s): F03.91 - Unspecified dementia with behavioral disturbance (4) UTI (urinary tract infection) Qualifiers: Hematuria presence: without hematuria
--- NOTE | 2018-02-06 16:03 | P.PNID ---
Subjective Remarks: Patient is confused currently. Oriented to person and place. Tries to speak but voice is very weak. Being fed by his . Has coughing spell. Denies chills, abdomen pain. Afebrile. WBC remain normal. Abdomen is markedly distended. 73-year-old white male who presented to the emergency department with respiratory symptoms. The patient was recently diagnosed with prostate cancer, and approximately 5 days ago, he underwent seed placement for treatment of the prostate cancer by his urologist. He reportedly developed difficulty walking yesterday evening and he was having frequent urination, and was brought to the emergency department for evaluation. The patient states that he was having shortness of breath. He is not a good historian and therefore, information is obtained from the medical record. The patient had a temperature of 102.9 degrees and white count was elevated at 16.2. Urinalysis was obtained and showed 88 white cells. This consultation is requested because of sepsis. Past Medical History: PAST MEDICAL HISTORY: Diabetes mellitus, hypertension, hyperlipidemia, benign prostatic hyperplasia, Parkinson's disease, prostate cancer, history of hernia repair, history of carpal tunnel repair. Allergies/Adverse Reactions: Allergies penicillin G Allergy (Severe, Unverified 02/02/18 00:38) Hives Objective Vital Signs 02/05/18 16:00 02/05/18 20:00 02/05/18 23:00 Temperature 98.8 F 97.4 F L Pulse Rate 74 73 76 Respiratory Rate 18 17 Blood Pressure 112/70 161/65 H Pulse Oximetry 98 96 02/06/18 00:00 02/06/18 04:00 02/06/18 08:00 Temperature 97.7 F 99 F Pulse Rate 79 88 90 Respiratory Rate 18 18 Blood Pressure 134/68 155/75 H Pulse Oximetry 95 95 02/06/18 08:12 02/06/18 12:00 Temperature 96.4 F L 97.6 F Pulse Rate 87 101 H Respiratory Rate 18 16 Blood Pressure 169/86 H 174/88 H Pulse Oximetry 94 L 93 L Intake & Output 02/05/18 02/06/18 02/06/18 18:59 06:59 18:59 Intake Total 630 / 630 1430 / 1430 100 / 100 Output Total 800 / 800 650 / 650 1200 / 1200 Balance -170 / -170 780 / 780 -1100 / -1100 Intake: IV 300 / 300 1100 / 1100 100 / 100 NS Inj 1,000 ML @ 50 mls/hr IV. 1000 / 1000 CONT .Q20H [facility] Rx#:[id number] Azactam Inj 2 GM In NS Inj 100 200 / 200 100 / 100 100 / 100 ML @ 200 mls/hr IV.SIG Q8H [facility] Rx#:[id number] KCl 10 mEq Premix Inj 10 meq In 100 / 100 100 ml @ 100 mls/hr IV.SIG ONCE ONE Rx#:[id number] Oral 330 / 330 330 / 330 Output: Urine 800 / 800 650 / 650 1200 / 1200 Other: Date of Last Bowel Movement 02/04/18 02/05/18 # Bowel Movements 0 02/03/18 13:40 Blood - Peripheral Aerobic Blood Culture - Preliminary No growth in 3 days 02/03/18 13:40 Blood - Peripheral Anaerobic Blood Culture - Preliminary No growth in 3 days 02/03/18 13:35 Blood - Peripheral Aerobic Blood Culture - Preliminary No growth in 3 days 02/03/18 13:35 Blood - Peripheral Anaerobic Blood Culture - Preliminary No growth in 3 days 02/02/18 01:44 Blood - Peripheral Aerobic Blood Culture - Preliminary No growth in 4 days 02/02/18 01:44 Blood - Peripheral Anaerobic Blood Culture - Preliminary No growth in 4 days 02/02/18 01:35 Blood - Peripheral Aerobic Blood Culture - Preliminary No growth in 4 days 02/02/18 01:35 Blood - Peripheral Anaerobic Blood Culture - Final Escherichia coli Lab - Hematology Results 02/05/18 02/06/18 09:32 07:08 WBC 8.4 8.5 RBC 4.95 5.16 Hgb 15.5 16.0 Hct 44.9 46.8 MCV 90.7 90.7 MCH 31.3 31.1 MCHC 34.6 34.3 RDW 14.1 14.3 Plt Count 279 310 MPV 6.9 L 6.8 L Lab - Chemistry Results 02/04/18 02/04/18 02/04/18 17:12 21:03 21:57 Sodium Potassium Chloride Carbon Dioxide Anion Gap BUN Creatinine Estimated GFR POC Glucose 105 117 H 119 H Random Glucose Lactic Acid Calcium Total Creatine Kinase CK-MB (CK-2) CK-MB (CK-2) % Vitamin B12 TSH 02/04/18 02/04/18 02/05/18 23:20 23:20 07:44 Sodium Potassium Chloride Carbon Dioxide Anion Gap BUN Creatinine Estimated GFR POC Glucose 81 Random Glucose Lactic Acid 2.0 Calcium Total Creatine Kinase 1413 H CK-MB (CK-2) 15.6 H CK-MB (CK-2) % 1.1 Vitamin B12 TSH 02/05/18 02/05/18 02/05/18 09:32 09:32 09:32 Sodium 143 Potassium 3.2 L Chloride 108 H Carbon Dioxide 23.6 Anion Gap 11 BUN 17 Creatinine 0.87 Estimated GFR 87 L POC Glucose Random Glucose 78 Lactic Acid Calcium 8.6 Total Creatine Kinase CK-MB (CK-2) CK-MB (CK-2) % Vitamin B12 399 TSH 5.000 H 02/05/18 02/06/18 02/06/18 12:04 07:08 07:55 Sodium 141 Potassium 3.5 Chloride 109 H Carbon Dioxide 21.3 Anion Gap 11 BUN 15 Creatinine 0.82 Estimated GFR Greater than 89 POC Glucose 79 94 Random Glucose 96 Lactic Acid Calcium 8.8 Total Creatine Kinase 1279 H CK-MB (CK-2) 14.9 H CK-MB (CK-2) % 1.2 Vitamin B12 TSH Imaging: ITS Impressions Abdomen/Pelvis CT 02/02/18 01:30 CONCLUSION: 1. Fat-containing left inguinal hernia. 2. Mild prostate enlargement with metallic localization seeds. Chest X-Ray 02/02/18 01:30 CONCLUSION: The appearance of the lungs is similar to September 2017 with some mild bilateral perihilar thickening. No peripheral infiltrates seen. Head CT 02/04/18 22:20 CONCLUSION: No acute intracranial abnormality demonstrated. . Head MRI 02/05/18 00:00 CONCLUSION: 1. No acute hemorrhage, mass or stroke. Physical Exam: PHYSICAL EXAMINATION: GENERAL: Patient is lethargic. HEENT: Head is atraumatic. Extraocular muscles are grossly intact. Pupils reactive to light. No icterus. Oropharynx moist mucosa without lesions. NECK: Supple without adenopathy. LUNGS: Clear breath sounds. HEART: Regular S1, S2. No murmurs, rubs or gallops. ABDOMEN: Bowel sounds decreased, distended, tympanic. EXTREMITIES: No clubbing, cyanosis or edema. SKIN: No rash. The skin has a red hue. NEUROLOGIC: No gross focal findings. speech weak. PSYCHIATRIC: Calm and cooperative. Assessment and Plan - Plan IMPRESSION: 1. Urinary tract infection. The patient is status post prostate seed placement. Repeat urine culture has no growth. 2. E. coli Sepsis. 3. Altered mental status, likely secondary to sepsis. waxing and waning. 4. Distended abdomen. ? ileus. RECOMMENDATIONS: 1. Continue aztreonam. 2. Monitor clinical status. 3. consider KUB. Discussed with primary.
--- NOTE | 2018-02-06 16:34 | XR ---
EXAM DATE: 02/06/2018 4:29 PM EDT AGE/SEX: 73 years / Male INDICATIONS: Distention CLINICAL DATA: This is the patient's initial encounter. Patient reports that signs and symptoms have been present for 4 - 6 days and indicates a pain score of Nonresponsive. MEDICAL/SURGICAL HISTORY: Diabetes mellitus type II. Hypertension. Parkinson's disease. Park inson's, prostate cancer None. COMPARISON: No prior exams available for comparison. FINDINGS: There are some distended loops of small and large bowel throughout the abdomen. There is air within the stomach. No significant stool is identified. I don't see obvious bowel wall thickening. There are no pathologic calcifications. Prostate seeds. CONCLUSION: Distended small and large bowel without an obvious pattern or evidence of obstruction Electronically signed by: David Petersen MD 02/06/2018 4:33 PM EDT
--- NOTE | 2018-02-06 17:56 | P.PNNEU ---
Subjective Subjective Comments: pt has not had recurrent gross tremor, but has had moderate tremors Active Medications: Active Medications Al Hydroxide/Mg Hydroxide (Milk Of Magnesia Liq) 30 ml PO Q12H PRN PRN Reason: Mild Constipation Amlodipine Besylate (Norvasc) 5 mg PO DAILY [facility] Last Admin: 02/06/18 08:37 Dose: 5 mg Bisacodyl (Dulcolax Supp) 10 mg RECTAL DAILY PRN PRN Reason: SEVERE CONSITIPATION Carbidopa/Levodopa (Sinemet 25/100 Mg) 1 tab PO DAILY@0800,1500,2200 [facility] Last Admin: 02/06/18 15:19 Dose: 1 tab Enalaprilat (Vasotec Inj) 1.25 mg IV.PUSH Q6H PRN PRN Reason: BLOOD PRESSURE MANAGEMENT Heparin Sodium (Porcine) (Heparin Inj) 5,000 units SQ Q12H [facility] Last Admin: 02/06/18 17:09 Dose: 5,000 units Aztreonam 2 gm/ Sodium (Chloride) 100 mls @ 200 mls/hr IV.SIG Q8H [facility] Last Admin: 02/06/18 17:06 Dose: 200 mls/hr Sodium Chloride (Ns Inj) 1,000 mls @ 50 mls/hr IV.CONT .Q20H [facility] Last Admin: 02/06/18 05:15 Dose: 50 mls/hr Lactulose (Lactulose Liq) 30 ml PO DAILY PRN PRN Reason: SEVERE CONSITIPATION Lorazepam (Ativan) 0.5 mg PO Q6H PRN PRN Reason: ANXIETY Last Admin: 02/05/18 23:39 Dose: 0.5 mg Lorazepam (Ativan Inj) 1 mg IV.PUSH Q6H PRN PRN Reason: ANXIETY Last Admin: 02/06/18 12:43 Dose: 1 mg Ondansetron HCl (Zofran Inj) 4 mg IV.PUSH Q6H PRN PRN Reason: NAUSEA OR VOMITING Pravastatin Sodium (Pravachol) 40 mg PO QPM [facility] Last Admin: 02/06/18 17:09 Dose: 40 mg Ropinirole HCl (Requip) 2 mg PO DAILY@0800,1500,2200 [facility] Last Admin: 02/06/18 15:20 Dose: 2 mg Sennosides (Senokot) 17.2 mg PO Q12H PRN PRN Reason: Moderate Constipation Tamsulosin HCl (Flomax) 0.4 mg PO BID [facility] Last Admin: 02/06/18 08:35 Dose: 0.4 mg Allergies/Adverse Reactions: Allergies Allergy/AdvReac Type Severity Reaction Status Date / Time penicillin G Allergy Severe Hives Unverified 02/02/18 00:38 Physical Exam Vital signs: Vital Signs 02/05/18 20:00 02/05/18 23:00 02/06/18 00:00 Temperature 97.4 F L 97.7 F Pulse Rate 73 76 79 Respiratory Rate 17 18 Blood Pressure 161/65 H 134/68 Pulse Oximetry 96 95 02/06/18 04:00 02/06/18 08:00 02/06/18 08:12 Temperature 99 F 96.4 F L Pulse Rate 88 90 87 Respiratory Rate 18 18 Blood Pressure 155/75 H 169/86 H Pulse Oximetry 95 94 L 02/06/18 12:00 Temperature 97.6 F Pulse Rate 101 H Respiratory Rate 16 Blood Pressure 174/88 H Pulse Oximetry 93 L Intake & Output 02/05/18 02/06/18 02/06/18 18:59 06:59 18:59 Intake Total 630 / 630 1430 / 1430 100 / 100 Output Total 800 / 800 650 / 650 1200 / 1200 Balance -170 / -170 780 / 780 -1100 / -1100 Intake: IV 300 / 300 1100 / 1100 100 / 100 NS Inj 1,000 ML @ 50 mls/hr IV. 1000 / 1000 CONT .Q20H [facility] Rx#:[id number] Azactam Inj 2 GM In NS Inj 100 200 / 200 100 / 100 100 / 100 ML @ 200 mls/hr IV.SIG Q8H [facility] Rx#:[id number] KCl 10 mEq Premix Inj 10 meq In 100 / 100 100 ml @ 100 mls/hr IV.SIG ONCE ONE Rx#:[id number] Oral 330 / 330 330 / 330 Output: Urine 800 / 800 650 / 650 1200 / 1200 Other: Date of Last Bowel Movement 02/04/18 02/05/18 # Bowel Movements 0 - Routine Neurological Exam lethargic but arouses easily. He does not follow commands. Speech is dysarthric and very hypophonic CN--diminished facial expression. He has moderate myoclonus of mandible. perrl motor--generalized weakness, but no focal motor deficit. He has increase tone with cogwheeling in BUE. Moderate tremor at rest Objective Laboratory Results - last 24 hr 02/05/18 02/06/18 02/06/18 15:15 07:08 07:08 WBC 8.5 RBC 5.16 Hgb 16.0 Hct 46.8 MCV 90.7 MCH 31.1 MCHC 34.3 RDW 14.3 Plt Count 310 MPV 6.8 L Sodium 141 Potassium 3.5 Chloride 109 H Carbon Dioxide 21.3 Anion Gap 11 BUN 15 Creatinine 0.82 Estimated GFR Greater than 89 POC Glucose Random Glucose 96 Calcium 8.8 Total Creatine Kinase 1279 H CK-MB (CK-2) 14.9 H CK-MB (CK-2) % 1.2 Urine Color Yellow Urine Clarity Clear Urine pH 5.0 Ur Specific Keaton 1.028 Urine Protein Negative Urine Glucose (UA) Negative Urine Ketones 20 Urine Occult Blood Small H Urine Nitrate Negative Urine Bilirubin Negative Urine Urobilinogen Less than 2 Ur Leukocyte Esterase Trace H Urine RBC 10 H Urine WBC 7 H Granular Casts 1 Urine Mucus Few H Micro UA Comment Culture not ind Ur Microscopic Review Not Reportable Urine Culture Comments Culture not ind 02/06/18 02/06/18 07:55 17:04 WBC RBC Hgb Hct MCV MCH MCHC RDW Plt Count MPV Sodium Potassium Chloride Carbon Dioxide Anion Gap BUN Creatinine Estimated GFR POC Glucose 94 124 H Random Glucose Calcium Total Creatine Kinase CK-MB (CK-2) CK-MB (CK-2) % Urine Color Urine Clarity Urine pH Ur Specific Keaton Urine Protein Urine Glucose (UA) Urine Ketones Urine Occult Blood Urine Nitrate Urine Bilirubin Urine Urobilinogen Ur Leukocyte Esterase Urine RBC Urine WBC Granular Casts Urine Mucus Micro UA Comment Ur Microscopic Review Urine Culture Comments Microbiology 02/03/18 13:40 Aerobic Blood Culture - Preliminary Blood - Peripheral No growth in 3 days Anaerobic Blood Culture - Preliminary No growth in 3 days 02/03/18 13:35 Aerobic Blood Culture - Preliminary Blood - Peripheral No growth in 3 days Anaerobic Blood Culture - Preliminary No growth in 3 days 02/02/18 01:44 Aerobic Blood Culture - Preliminary Blood - Peripheral No growth in 4 days Anaerobic Blood Culture - Preliminary No growth in 4 days 02/02/18 01:35 Aerobic Blood Culture - Preliminary Blood - Peripheral No growth in 4 days Anaerobic Blood Culture - Final Escherichia coli Review/Management - Review/Management Plan: I think his sx are related to his parkinsons dementia, accenuated by a metabolic encephalopathy from uti/sepsis. No evidence for sz and EEG is reviewed and shows no epileptiform activity
[2018-02-07] MEDS: Aztreonam Inj 2 GM in Sodium Chloride 0.9% Inj 100 ML IV.SIG SCH ×3 (02:35→18:07)
[2018-02-07] MEDS: Sod Chloride 0.9% Inj 1,000 ML IV.CONT SCH (02:35)
[2018-02-07] MEDS: Heparin - SQ 10,000 UNITS/ML Vial SQ SCH ×2 (06:13→18:07)
[2018-02-07] MEDS: amLODIPine 5 MG Tablet PO SCH (08:32)
[2018-02-07] MEDS ORDERED: QUEtiapine 25 MG Tablet PO SCH (09:15)
--- NOTE | 2018-02-07 09:18 | P.PN ---
Subjective Interval history: Follow-up for sepsis, UTI, altered mental status: Remains altered, oriented to self. Yesterday abdomen distended, had mucousy stool. Concern over swallowing therefore he was made n.p.o. last night. Not following commands consistently. Unable to obtain ROS. No fever overnight Physical Exam Vital signs: Vital Signs 02/06/18 12:00 02/06/18 16:00 02/06/18 20:00 Temperature 97.6 F 98.4 F 99.2 F Pulse Rate 106 H 87 92 H Respiratory Rate 16 16 19 Blood Pressure 174/88 H 123/71 154/86 H Pulse Oximetry 93 L 95 93 L 02/07/18 00:00 02/07/18 04:00 02/07/18 08:00 Temperature 98.7 F 99.3 F 99.3 F Pulse Rate 87 88 86 Respiratory Rate 19 17 18 Blood Pressure 164/83 H 155/84 H 175/85 H Pulse Oximetry 95 96 95 Intake & Output 02/06/18 02/07/18 02/07/18 18:59 06:59 18:59 Intake Total 440 / 440 1100 / 1100 Output Total 1500 / 1500 350 / 350 Balance -1060 / -1060 750 / 750 Weight 88.6 kg Intake: IV 200 / 200 1100 / 1100 NS Inj 1,000 ML @ 50 mls/hr IV. 1000 / 1000 CONT .Q20H [facility] Rx#:[id number] Azactam Inj 2 GM In NS Inj 100 200 / 200 100 / 100 ML @ 200 mls/hr IV.SIG Q8H [facility] Rx#:[id number] Oral 240 / 240 Output: Urine 1500 / 1500 350 / 350 Other: # Urine Diapers 4 # Bowel Movements 0 Narrative: GENERAL: 73-year-old male, disoriented. Anxious SKIN: Warm and dry. HEAD: Atraumatic. Normocephalic. EYES: Pupils equal and round. No scleral icterus. No injection or drainage. ENT: No nasal bleeding or discharge. Mucous membranes pink and moist. NECK: Trachea midline. No JVD. CARDIOVASCULAR: Regular rate and rhythm. RESPIRATORY: No accessory muscle use. Clear to auscultation. Breath sounds equal bilaterally. GASTROINTESTINAL: Abdomen slightly distended, normoactive bowel sounds, nontender. Hepatic and splenic margins not palpable. MUSCULOSKELETAL: Extremities without clubbing, cyanosis, or edema. No obvious deformities. NEUROLOGICAL: Awake, difficult to understand, moves all extremities. Confused. PSYCHIATRIC: Unable to assess Results - Labs CBC & Chem 7: 02/06/18 07:08 02/07/18 08:41 Laboratory Results - last 24 hr 02/06/18 02/07/18 02/07/18 17:04 06:41 07:40 POC Glucose 124 H 98 101 Microbiology 02/03/18 13:40 Blood - Peripheral Aerobic Blood Culture - Preliminary No growth in 3 days 02/03/18 13:40 Blood - Peripheral Anaerobic Blood Culture - Preliminary No growth in 3 days 02/03/18 13:35 Blood - Peripheral Aerobic Blood Culture - Preliminary No growth in 3 days 02/03/18 13:35 Blood - Peripheral Anaerobic Blood Culture - Preliminary No growth in 3 days 02/02/18 01:44 Blood - Peripheral Aerobic Blood Culture - Preliminary No growth in 4 days 02/02/18 01:44 Blood - Peripheral Anaerobic Blood Culture - Preliminary No growth in 4 days 02/02/18 01:35 Blood - Peripheral Aerobic Blood Culture - Preliminary No growth in 4 days 02/02/18 01:35 Blood - Peripheral Anaerobic Blood Culture - Final Escherichia coli - Imaging Impressions Abdomen X-Ray 02/06/18 00:00 CONCLUSION: Distended small and large bowel without an obvious pattern or evidence of obstruction Assessment and Plan - Assessment (1) Sepsis Code(s): A41.9 - Sepsis, unspecified organism Status: Acute (2) Acute metabolic encephalopathy Code(s): G93.41 - Metabolic encephalopathy Status: Acute (3) Dementia Code(s): F03.90 - Unspecified dementia without behavioral disturbance Status: Acute (4) UTI (urinary tract infection) Code(s): N39.0 - Urinary tract infection, site not specified Status: Acute - Plan 73-year-old male with a history of Parkinson's, hyperlipidemia, hypertension, prostate cancer and diet-controlled diabetes, possible underlying dementia who was brought to the ED for evaluation of frequent urination and difficulty walking. Urology has evaluated the patient, recommended medical management, signed off. sepsis likely secondary to bacteremia Sepsis element resolved. -Urine culture is negative -1/2 Blood culture from 02/02 + for E. coli -Continue aztreonam -UA repeated yesterday per ID recommendations, improved. No culture indicated Gram-negative bacteremia Continue antibiotics per ID aztreonam -Repeat blood cultures negative so far Appreciate ID input Acute metabolic encephalopathy likely multifactorial. Briana called 02/04. Patient has possible underlying dementia, stopped taking Namenda 1 year ago. Prior history of heavy alcohol use, does not believe that he drinks anymore however other family members believe that he may still be drinking. Possible EtOH withdrawal Ammonia level normal. CT of the head negative, no acute findings Slightly improved. EEG shows moderate encephalopathy, MRI of the brain negative. Appreciate neurology input, likely multifactorial, sepsis. Seizure precautions Continue with Ativan as needed -TSH mildly elevated, ok free T4. Poss. subclinical hypothyroid. [id number], was given 1000 micrograms IM x1. -remains agitated, will Seroquel 25 mg po bid -Add thiamine and MVI Rhabdomyolysis, likely secondary to increased agitation. Initial CPK 1413 Anion gap acidosis CO 2 19.6 Continue with cautious hydration CPK trending down, 664 -renal function stable Replace electrolytes as needed Abdomen distended, mucus in stools xray done-Distended small and large bowel without an obvious pattern or evidence of obstruction -was NPO, will resume meals -swallow eval. Pt. needs to be fed -monitor for aspiration -not eating much, will change to D5 1/2 NS with MVI and thiamine at 75/hr Snoring, patient at times stops breathing. Patient likely has component of sleep apnea endorses heavy snoring at home Will need workup as outpatient Monitor sats Continue with oxygen at 2 L Weakness/unable to ambulate, most likely related to urosepsis -Out of bed with PT PT recommends SNF Hypertension, chronic -Continue Norvas Diabetes patient and states diet controlled -Stable, diet controlled -Monitor Accu-Cheks before meals and at bedtime Parkinson's, chronic Possible underlying dementia-patient was on Namenda at one point which he stopped taking a year ago -Continue Sinemet History of prostate cancer Recent urological procedure, had placement of seeds -appreciate urology input Continue with Flomax DVT prophylaxis: Heparin Case management consult for SNF placement Mentation slightly improved, however remains altered. Labs pending, will follow up. Code Status: Full code Discussed Condition With: RN, CM, pt Discharge Planning: Not ready for dc yet, confused. (1) Sepsis Qualifiers: Sepsis type: Escherichia coli Qualified Code(s): A41.51 - Sepsis due to Escherichia coli [E. coli] (3) Dementia Qualifiers: Dementia type: unspecified type Dementia behavioral disturbance: with behavioral disturbance Qualified Code(s): F03.91 - Unspecified dementia with behavioral disturbance (4) UTI (urinary tract infection) Qualifiers: Hematuria presence: without hematuria
[2018-02-07 09:22] LABS: Albumin 3.3 g/dL (3.4-5.0); Anion Gap 11 meq/L (5-15); Aspartate Aminotransferase 85 U/L (15-37); Blood Urea Nitrogen 12 mg/dL (7-18); Calcium 8.6 mg/dL (8.5-10.1); Carbon Dioxide 19.6 meq/L (21.0-32.0); Chloride 110 meq/L (98-107); Glomerular Filtration Rate Greater Than 89 mL/min (>89); Glucose,Random 102 mg/dL (74-106); Potassium 3.5 meq/L (3.5-5.1); Sodium 141 meq/L (136-145)
[2018-02-07 09:27] LABS: Alanine Aminotransferase 80 U/L (12-78); Alkaline Phosphatase 70 U/L (45-117); Creatine Kinase 664 U/L (39-308); Free T4 (Free Thyroxine) 1.22 ng/dL (0.76-1.46); Total Protein 7.4 g/dL (6.4-8.2)
[2018-02-07 09:42] LABS: CKMB Percent 1.4 % (0.0-4.0)
--- NOTE | 2018-02-07 13:13 | P.PNID ---
Subjective Remarks: Patient is very somnolent. Afebrile. WBC remain normal. 73-year-old white male who presented to the emergency department with respiratory symptoms. The patient was recently diagnosed with prostate cancer, and approximately 5 days ago, he underwent seed placement for treatment of the prostate cancer by his urologist. He reportedly developed difficulty walking yesterday evening and he was having frequent urination, and was brought to the emergency department for evaluation. The patient states that he was having shortness of breath. He is not a good historian and therefore, information is obtained from the medical record. The patient had a temperature of 102.9 degrees and white count was elevated at 16.2. Urinalysis was obtained and showed 88 white cells. This consultation is requested because of sepsis. Past Medical History: PAST MEDICAL HISTORY: Diabetes mellitus, hypertension, hyperlipidemia, benign prostatic hyperplasia, Parkinson's disease, prostate cancer, history of hernia repair, history of carpal tunnel repair. Allergies/Adverse Reactions: Allergies penicillin G Allergy (Severe, Unverified 02/02/18 00:38) Hives Objective Vital Signs 02/06/18 16:00 02/06/18 20:00 02/07/18 00:00 Temperature 98.4 F 99.2 F 98.7 F Pulse Rate 87 92 H 87 Respiratory Rate 16 19 19 Blood Pressure 123/71 154/86 H 164/83 H Pulse Oximetry 95 93 L 95 02/07/18 04:00 02/07/18 08:00 02/07/18 12:00 Temperature 99.3 F 99.3 F 97.8 F Pulse Rate 88 87 82 Respiratory Rate 17 16 18 Blood Pressure 155/84 H 175/85 H 141/75 H Pulse Oximetry 96 95 95 Intake & Output 02/06/18 02/07/18 02/07/18 18:59 06:59 18:59 Intake Total 440 / 440 1100 / 1100 100 / 100 Output Total 1500 / 1500 350 / 350 Balance -1060 / -1060 750 / 750 100 / 100 Weight 88.6 kg Intake: IV 200 / 200 1100 / 1100 100 / 100 NS Inj 1,000 ML @ 50 mls/hr IV. 1000 / 1000 CONT .Q20H [facility] Rx#:[id number] Azactam Inj 2 GM In NS Inj 100 200 / 200 100 / 100 100 / 100 ML @ 200 mls/hr IV.SIG Q8H [facility] Rx#:[id number] Oral 240 / 240 Output: Urine 1500 / 1500 350 / 350 Other: # Urine Diapers 4 # Bowel Movements 0 02/03/18 13:40 Blood - Peripheral Aerobic Blood Culture - Preliminary No growth in 4 days 02/03/18 13:40 Blood - Peripheral Anaerobic Blood Culture - Preliminary No growth in 4 days 02/03/18 13:35 Blood - Peripheral Aerobic Blood Culture - Preliminary No growth in 4 days 02/03/18 13:35 Blood - Peripheral Anaerobic Blood Culture - Preliminary No growth in 4 days 02/02/18 01:44 Blood - Peripheral Aerobic Blood Culture - Final No growth in 5 days 02/02/18 01:44 Blood - Peripheral Anaerobic Blood Culture - Final No growth in 5 days 02/02/18 01:35 Blood - Peripheral Aerobic Blood Culture - Final No growth in 5 days 02/02/18 01:35 Blood - Peripheral Anaerobic Blood Culture - Final Escherichia coli Lab - Hematology Results 02/06/18 07:08 WBC 8.5 RBC 5.16 Hgb 16.0 Hct 46.8 MCV 90.7 MCH 31.1 MCHC 34.3 RDW 14.3 Plt Count 310 MPV 6.8 L Lab - Chemistry Results 02/05/18 02/05/18 02/06/18 09:32 09:32 07:08 Sodium 141 Potassium 3.5 Chloride 109 H Carbon Dioxide 21.3 Anion Gap 11 BUN 15 Creatinine 0.82 Estimated GFR Greater than 89 POC Glucose Random Glucose 96 Calcium 8.8 Total Bilirubin Direct Bilirubin Indirect Bilirubin AST ALT Alkaline Phosphatase Total Creatine Kinase 1279 H CK-MB (CK-2) 14.9 H CK-MB (CK-2) % 1.2 Total Protein Albumin Vitamin B12 399 TSH 5.000 H Free T4 02/06/18 02/06/18 02/07/18 07:55 17:04 06:41 Sodium Potassium Chloride Carbon Dioxide Anion Gap BUN Creatinine Estimated GFR POC Glucose 94 124 H 98 Random Glucose Calcium Total Bilirubin Direct Bilirubin Indirect Bilirubin AST ALT Alkaline Phosphatase Total Creatine Kinase CK-MB (CK-2) CK-MB (CK-2) % Total Protein Albumin Vitamin B12 TSH Free T4 02/07/18 02/07/18 02/07/18 07:40 08:41 11:26 Sodium 141 Potassium 3.5 Chloride 110 H Carbon Dioxide 19.6 L Anion Gap 11 BUN 12 Creatinine 0.77 Estimated GFR Greater than 89 POC Glucose 101 104 Random Glucose 102 Calcium 8.6 Total Bilirubin 0.7 Direct Bilirubin 0.2 Indirect Bilirubin 0.5 AST 85 H ALT 80 H Alkaline Phosphatase 70 Total Creatine Kinase 664 H CK-MB (CK-2) 9.0 H CK-MB (CK-2) % 1.4 Total Protein 7.4 Albumin 3.3 L Vitamin B12 TSH Free T4 1.22 Imaging: ITS Impressions Abdomen/Pelvis CT 02/02/18 01:30 CONCLUSION: 1. Fat-containing left inguinal hernia. 2. Mild prostate enlargement with metallic localization seeds. Chest X-Ray 02/02/18 01:30 CONCLUSION: The appearance of the lungs is similar to September 2017 with some mild bilateral perihilar thickening. No peripheral infiltrates seen. Head CT 02/04/18 22:20 CONCLUSION: No acute intracranial abnormality demonstrated. . Head MRI 02/05/18 00:00 CONCLUSION: 1. No acute hemorrhage, mass or stroke. Abdomen X-Ray 02/06/18 00:00 CONCLUSION: Distended small and large bowel without an obvious pattern or evidence of obstruction Physical Exam: PHYSICAL EXAMINATION: GENERAL: Patient is lethargic. HEENT: Head is atraumatic. Extraocular muscles are grossly intact. Pupils reactive to light. No icterus. Oropharynx moist mucosa without lesions. NECK: Supple without adenopathy. LUNGS: Clear breath sounds. HEART: Regular S1, S2. No murmurs, rubs or gallops. ABDOMEN: Bowel sounds decreased, distended, tympanic. EXTREMITIES: No clubbing, cyanosis or edema. SKIN: No rash. The skin has a red hue. NEUROLOGIC: No gross focal findings. speech weak. PSYCHIATRIC: Calm and cooperative. Assessment and Plan - Plan IMPRESSION: 1. Urinary tract infection. The patient is status post prostate seed placement. Repeat urine culture has no growth. 2. E. coli Sepsis. Patient appears to be clinically responding. His white blood cell count is normal. He has no fever. Repeat blood cultures are negative. 3. Altered mental status, likely secondary to sepsis. waxing and waning. 4. Distended abdomen. ? ileus. RECOMMENDATIONS: 1. Continue aztreonam to complete 10 days. 2. Monitor clinical status. Discussed with primary.
[2018-02-07] MEDS: Multivitamin Inj 10 ML, Thiamine Inj 100 MG, Folic Acid Inj 1 MG in Sodium Chloride 0.4... IV.SIG SCH (15:32)
[2018-02-07] MEDS: QUEtiapine 25 MG Tablet PO SCH (20:42)
[2018-02-08] MEDS: Aztreonam Inj 2 GM in Sodium Chloride 0.9% Inj 100 ML IV.SIG SCH ×3 (01:12→17:37)
[2018-02-08] MEDS: Heparin - SQ 10,000 UNITS/ML Vial SQ SCH ×2 (05:02→17:37)
[2018-02-08 07:56] LABS: Alanine Aminotransferase 69 U/L (12-78); Albumin 2.9 g/dL (3.4-5.0); Anion Gap 10 meq/L (5-15); Aspartate Aminotransferase 65 U/L (15-37); Blood Urea Nitrogen 12 mg/dL (7-18); Calcium 8.2 mg/dL (8.5-10.1); Carbon Dioxide 23.7 meq/L (21.0-32.0); Chloride 110 meq/L (98-107); Glomerular Filtration Rate Greater Than 89 mL/min (>89); Glucose,Random 79 mg/dL (74-106); Potassium 3.3 meq/L (3.5-5.1); Sodium 144 meq/L (136-145)
[2018-02-08 07:58] LABS: Alkaline Phosphatase 61 U/L (45-117); Total Protein 6.6 g/dL (6.4-8.2)
[2018-02-08] MEDS: QUEtiapine 25 MG Tablet PO SCH ×2 (09:23→21:38)
[2018-02-08] MEDS: amLODIPine 5 MG Tablet PO SCH (09:23)
[2018-02-08] MEDS: Multivitamin Inj 10 ML, Thiamine Inj 100 MG, Folic Acid Inj 1 MG in Sodium Chloride 0.4... IV.SIG SCH (09:29)
--- NOTE | 2018-02-08 15:35 | P.PN ---
Subjective Interval history: Follow-up for sepsis, UTI, altered mental status: Patient seen and examined, much more improved today. Awakes to voice, oriented to self, place, asking what happened to him. Restraints have been removed. He was able to eat some breakfast this morning. He is hard of hearing. He has no complaints. No fever. Physical Exam Vital signs: Vital Signs 02/07/18 16:00 02/07/18 20:00 02/08/18 00:00 Temperature 98.3 F 98.7 F 98.3 F Pulse Rate 74 72 66 Respiratory Rate 18 18 17 Blood Pressure 146/73 H 148/90 H 102/86 Pulse Oximetry 95 97 95 02/08/18 04:00 02/08/18 12:00 Temperature 98.4 F 97.5 F L Pulse Rate 62 77 Respiratory Rate 15 18 Blood Pressure 135/88 121/82 Pulse Oximetry 98 95 Intake & Output 02/07/18 02/08/18 02/08/18 18:59 06:59 18:59 Intake Total 836 / 836 711.2 / 711.2 611.2 / 611.2 Balance 836 / 836 711.2 / 711.2 611.2 / 611.2 Weight 88.2 kg Intake: IV 600 / 600 711.2 / 711.2 611.2 / 611.2 NS Inj 1,000 ML @ 50 mls/hr IV. 500 / 500 CONT .Q20H [facility] Rx#:[id number] Azactam Inj 2 GM In NS Inj 100 100 / 100 200 / 200 100 / 100 ML @ 200 mls/hr IV.SIG Q8H [facility] Rx#:[id number] MVI-12 Inj 10 ML Thiamine Inj 511.2 / 511.2 511.2 / 511.2 100 MG Folvite Inj 1 MG In 1/2 Normal Saline Inj 500 ML @ 127. 8 mls/hr IV.SIG DAILY [facility] Rx#: [id number] Oral 236 / 236 Other: # Voids 2 # Incontinent Voids 1 # Urine Diapers 3 Narrative: GENERAL: 73-year-old male, disoriented. Anxious SKIN: Warm and dry. HEAD: Atraumatic. Normocephalic. EYES: Pupils equal and round. No scleral icterus. No injection or drainage. ENT: No nasal bleeding or discharge. Mucous membranes pink and moist. NECK: Trachea midline. No JVD. CARDIOVASCULAR: Regular rate and rhythm. RESPIRATORY: No accessory muscle use. Clear to auscultation. Breath sounds equal bilaterally. GASTROINTESTINAL: Abdomen soft, normoactive bowel sounds, nontender. Hepatic and splenic margins not palpable. MUSCULOSKELETAL: Extremities without clubbing, cyanosis, or edema. No obvious deformities. NEUROLOGICAL: Awakes to voice, oriented x2. Moves all extremities, hard of hearing. PSYCHIATRIC: Calm. Results - Labs CBC & Chem 7: 02/06/18 07:08 02/08/18 06:19 Laboratory Results - last 24 hr 02/07/18 02/07/18 02/08/18 17:49 20:04 06:19 Sodium 144 Potassium 3.3 L Chloride 110 H Carbon Dioxide 23.7 Anion Gap 10 BUN 12 Creatinine 0.72 Estimated GFR Greater than 89 POC Glucose 74 112 H Random Glucose 79 Calcium 8.2 L Total Bilirubin 0.7 AST 65 H ALT 69 Alkaline Phosphatase 61 Total Protein 6.6 D Albumin 2.9 L 02/08/18 02/08/18 07:41 12:19 Sodium Potassium Chloride Carbon Dioxide Anion Gap BUN Creatinine Estimated GFR POC Glucose 82 123 H Random Glucose Calcium Total Bilirubin AST ALT Alkaline Phosphatase Total Protein Albumin Microbiology 02/03/18 13:40 Blood - Peripheral Aerobic Blood Culture - Final No growth in 5 days 02/03/18 13:40 Blood - Peripheral Anaerobic Blood Culture - Final No growth in 5 days 02/03/18 13:35 Blood - Peripheral Aerobic Blood Culture - Final No growth in 5 days 02/03/18 13:35 Blood - Peripheral Anaerobic Blood Culture - Final No growth in 5 days Assessment and Plan - Assessment (1) Sepsis Code(s): A41.9 - Sepsis, unspecified organism Status: Acute (2) Acute metabolic encephalopathy Code(s): G93.41 - Metabolic encephalopathy Status: Acute (3) Dementia Code(s): F03.90 - Unspecified dementia without behavioral disturbance Status: Acute (4) UTI (urinary tract infection) Code(s): N39.0 - Urinary tract infection, site not specified Status: Acute - Plan 73-year-old male with a history of Parkinson's, hyperlipidemia, hypertension, prostate cancer and diet-controlled diabetes, possible underlying dementia who was brought to the ED for evaluation of frequent urination and difficulty walking. Urology has evaluated the patient, recommended medical management, signed off. sepsis likely secondary to bacteremia Sepsis element resolved. -Urine culture is negative -1/2 Blood culture from 02/02 + for E. coli -Continue aztreonam for 10 days (started on 02/02) -UA repeated yesterday per ID recommendations, improved. No culture indicated Gram-negative bacteremia Continue aztreonam total 10 days -Repeat blood cultures negative so far Appreciate ID input Acute metabolic encephalopathy likely multifactorial. Halgerm[facility]et called 02/04. Patient has possible underlying dementia, stopped taking Namenda 1 year ago. Prior history of heavy alcohol use, does not believe that he drinks anymore however other family members believe that he may still be drinking. Possible EtOH withdrawal Ammonia level normal. CT of the head negative, no acute findings Much more improved today, awake, and oriented EEG shows moderate encephalopathy, MRI of the brain negative. Appreciate neurology input, likely multifactorial, sepsis. Seizure precautions Continue with Ativan as needed -TSH mildly elevated, ok free T4. Poss. subclinical hypothyroid. B12 399, was given 1000 micrograms IM x 2 -continue Seroquel, dec. to 12.5 mg po bid. -continue with thiamine and MVI Rhabdomyolysis, likely secondary to increased agitation. Initial CPK 1413 Anion gap acidosis CO 2 19.6 Continue with cautious hydration CPK trending down, 664 -renal function stable Replace K today Abdomen distended, mucus in stools xray done-Distended small and large bowel without an obvious pattern or evidence of obstruction -cont. with diet -monitor for aspiration -continue with D5 1/2 NS Snoring, patient at times stops breathing. Patient likely has component of sleep apnea endorses heavy snoring at home Will need workup as outpatient Monitor sats Continue with oxygen at 2 L Weakness/unable to ambulate, most likely related to urosepsis -Out of bed with PT PT recommends SNF Hypertension, chronic -Continue Norvas Diabetes patient and states diet controlled -Stable, diet controlled -Monitor Accu-Cheks before meals and at bedtime Parkinson's, chronic Possible underlying dementia-patient was on Namenda at one point which he stopped taking a year ago -Continue Sinemet History of prostate cancer Recent urological procedure, had placement of seeds -appreciate urology input Continue with Flomax DVT prophylaxis: Heparin Case management consult for SNF placement Mentation improving, less encephalopathic. Restraints have been discontinued Discussed with CM, will have CIR reevaluate, if not then patient can go to SNF. Code Status: Full code Discussed Condition With: RN, pt, CM Discharge Planning: Plan to discharge to SNF or CIR by Saturday. (1) Sepsis Qualifiers: Sepsis type: Escherichia coli Qualified Code(s): A41.51 - Sepsis due to Escherichia coli [E. coli] (3) Dementia Qualifiers: Dementia type: unspecified type Dementia behavioral disturbance: with behavioral disturbance Qualified Code(s): F03.91 - Unspecified dementia with behavioral disturbance (4) UTI (urinary tract infection) Qualifiers: Hematuria presence: without hematuria
[2018-02-08] MEDS ORDERED: Potassium Chloride 25 MEQ Effervescent Tablet PO ONE (15:45)
[2018-02-09] MEDS: Aztreonam Inj 2 GM in Sodium Chloride 0.9% Inj 100 ML IV.SIG SCH ×3 (02:00→18:00)
[2018-02-09] MEDS: Heparin - SQ 10,000 UNITS/ML Vial SQ SCH ×2 (05:55→18:00)
[2018-02-09] MEDS: amLODIPine 5 MG Tablet PO SCH (08:00)
[2018-02-09] MEDS: QUEtiapine 25 MG Tablet PO SCH ×2 (08:00→20:57)
[2018-02-09] MEDS: Multivitamin Inj 10 ML, Thiamine Inj 100 MG, Folic Acid Inj 1 MG in Sodium Chloride 0.4... IV.SIG SCH (08:01)
--- NOTE | 2018-02-09 13:10 | P.PN ---
Subjective Interval history: Follow-up for sepsis, UTI, altered mental status: Patient seen and examined, continues to improve. Awake, alert oriented x2. Asking how long he has been here, wants to get out of bed and work with PT. Asking if he is going to be discharged. Has no complaints. Has been eating. No cough, no chest pain, no shortness of breath. No fever Physical Exam Vital signs: Vital Signs 02/08/18 16:00 02/08/18 19:59 02/08/18 20:14 Temperature 97.8 F 97.6 F Pulse Rate 66 81 80 Respiratory Rate 18 18 Blood Pressure 125/81 138/78 Pulse Oximetry 97 98 02/08/18 23:57 02/09/18 00:00 02/09/18 04:00 Temperature 97.5 F L 97.9 F Pulse Rate 73 75 75 Respiratory Rate 18 18 Blood Pressure 143/88 H 152/95 H Pulse Oximetry 93 L 95 02/09/18 08:00 Temperature 98.2 F Pulse Rate 77 Respiratory Rate 18 Blood Pressure 141/90 H Pulse Oximetry 97 Intake & Output 02/08/18 02/09/18 02/09/18 19:59 06:59 18:59 Intake Total 611.2 / 611.2 Balance 611.2 / 611.2 Weight Intake: IV 611.2 / 611.2 Azactam Inj 2 GM In NS Inj 100 100 / 100 ML @ 200 mls/hr IV.SIG Q8H [facility] Rx#:[id number] MVI-12 Inj 10 ML Thiamine Inj 511.2 / 511.2 100 MG Folvite Inj 1 MG In 1/2 Normal Saline Inj 500 ML @ 127. 8 mls/hr IV.SIG DAILY [facility] Rx#: [id number] Oral Other: # Incontinent Voids Narrative: GENERAL: 73-year-old male, disoriented. Anxious SKIN: Warm and dry. HEAD: Atraumatic. Normocephalic. EYES: Pupils equal and round. No scleral icterus. No injection or drainage. ENT: No nasal bleeding or discharge. Mucous membranes pink and moist. NECK: Trachea midline. No JVD. CARDIOVASCULAR: Regular rate and rhythm. RESPIRATORY: No accessory muscle use. Clear to auscultation. Breath sounds equal bilaterally. GASTROINTESTINAL: Abdomen soft, normoactive bowel sounds, nontender. Hepatic and splenic margins not palpable. MUSCULOSKELETAL: Extremities without clubbing, cyanosis, or edema. No obvious deformities. NEUROLOGICAL: Awake, oriented x 2. Following commands, no focal deficits. PSYCHIATRIC: Pleasant, calm, forgetful. Results - Labs CBC & Chem 7: 02/06/18 07:08 02/08/18 06:19 Laboratory Results - last 24 hr 02/08/18 02/08/18 02/09/18 17:32 20:44 07:40 POC Glucose 121 H 121 H 103 02/09/18 12:45 POC Glucose 101 Microbiology 02/03/18 13:40 Blood - Peripheral Aerobic Blood Culture - Final No growth in 5 days 02/03/18 13:40 Blood - Peripheral Anaerobic Blood Culture - Final No growth in 5 days 02/03/18 13:35 Blood - Peripheral Aerobic Blood Culture - Final No growth in 5 days 02/03/18 13:35 Blood - Peripheral Anaerobic Blood Culture - Final No growth in 5 days Assessment and Plan - Assessment (1) Sepsis Code(s): A41.9 - Sepsis, unspecified organism Status: Acute (2) Acute metabolic encephalopathy Code(s): G93.41 - Metabolic encephalopathy Status: Acute (3) Dementia Code(s): F03.90 - Unspecified dementia without behavioral disturbance Status: Acute (4) UTI (urinary tract infection) Code(s): N39.0 - Urinary tract infection, site not specified Status: Acute - Plan 73-year-old male with a history of Parkinson's, hyperlipidemia, hypertension, prostate cancer and diet-controlled diabetes, possible underlying dementia who was brought to the ED for evaluation of frequent urination and difficulty walking. Urology has evaluated the patient, recommended medical management, signed off. sepsis likely secondary to bacteremia Sepsis element resolved. -Urine culture is negative -1/2 Blood culture from 02/02 + for E. coli -Continue aztreonam for 10 days (started on 02/02) -UA repeated yesterday per ID recommendations, improved. No culture indicated Gram-negative bacteremia Continue aztreonam total 10 days -Repeat blood cultures negative so far Appreciate ID input Acute metabolic encephalopathy likely multifactorial. Briana called 02/04. Patient has possible underlying dementia, stopped taking Namenda 1 year ago. Prior history of heavy alcohol use, does not believe that he drinks anymore however other family members believe that he may still be drinking. Possible EtOH withdrawal Ammonia level normal. CT of the head negative, no acute findings Much more improved today, awake, and oriented EEG shows moderate encephalopathy, MRI of the brain negative. Appreciate neurology input, likely multifactorial, sepsis. Seizure precautions Continue with Ativan as needed -TSH mildly elevated, ok free T4. Poss. subclinical hypothyroid. B12 399, was given 1000 micrograms IM x 2 -continue Seroquel, dec. to 12.5 mg po bid. -continue with thiamine and MVI -change to p.o. Rhabdomyolysis, likely secondary to increased agitation. Initial CPK 1413 Anion gap acidosis CO 2 19.6 Continue with cautious hydration CPK trending down, 664 -renal function stable Replace K today Abdomen distended, mucus in stools xray done-Distended small and large bowel without an obvious pattern or evidence of obstruction -cont. with diet -monitor for aspiration -Discontinue IV fluids. Snoring, patient at times stops breathing. Patient likely has component of sleep apnea endorses heavy snoring at home Will need workup as outpatient Monitor sats Continue with oxygen at 2 L Weakness/unable to ambulate, most likely related to urosepsis -Out of bed with PT PT recommends SNF Hypertension, chronic -Continue Norvas Diabetes patient and states diet controlled -Stable, diet controlled -Monitor Accu-Cheks before meals and at bedtime Parkinson's, chronic Possible underlying dementia-patient was on Namenda at one point which he stopped taking a year ago -Continue Sinemet History of prostate cancer Recent urological procedure, had placement of seeds -appreciate urology input Continue with Flomax DVT prophylaxis: Heparin Case management consult for SNF placement Continues to improve Will DC IV fluids Plan to discharge tomorrow to CIR or SNF Code Status: Full code Discussed Condition With: RN, pt, CM Discharge Planning: Plan to discharge to SNF or CIR by Saturday. (1) Sepsis Qualifiers: Sepsis type: Escherichia coli Qualified Code(s): A41.51 - Sepsis due to Escherichia coli [E. coli] (3) Dementia Qualifiers: Dementia type: unspecified type Dementia behavioral disturbance: with behavioral disturbance Qualified Code(s): F03.91 - Unspecified dementia with behavioral disturbance (4) UTI (urinary tract infection) Qualifiers: Hematuria presence: without hematuria
[2018-02-10] MEDS: Aztreonam Inj 2 GM in Sodium Chloride 0.9% Inj 100 ML IV.SIG SCH ×3 (01:05→18:41)
[2018-02-10] MEDS: Heparin - SQ 10,000 UNITS/ML Vial SQ SCH ×2 (05:20→18:41)
--- NOTE | 2018-02-10 09:00 | P.PN ---
Subjective Interval history: Follow-up for sepsis, UTI, altered mental status: Patient seen and examined, agitated overnight, better this morning, oriented x2. Has no complaints. No fever. Physical Exam Vital signs: Vital Signs 02/09/18 12:00 02/09/18 16:00 02/09/18 20:00 Temperature 98.3 F 98.1 F 97.4 F L Pulse Rate 75 82 88 Respiratory Rate 18 18 22 Blood Pressure 107/71 146/91 H 121/81 Pulse Oximetry 93 L 95 94 L 02/09/18 20:15 02/09/18 23:58 02/10/18 00:00 Temperature 98.2 F Pulse Rate 84 85 90 Respiratory Rate 22 Blood Pressure 147/83 H Pulse Oximetry 95 02/10/18 03:53 02/10/18 04:00 Temperature 99.0 F Pulse Rate 84 95 H Respiratory Rate 22 Blood Pressure 134/94 H Pulse Oximetry 94 L Intake & Output 02/09/18 02/10/18 02/10/18 18:59 06:59 18:59 Intake Total 1311.2 / 1311.2 220 / 220 Balance 1311.2 / 1311.2 220 / 220 Intake: IV 711.2 / 711.2 100 / 100 Azactam Inj 2 GM In NS Inj 100 200 / 200 100 / 100 ML @ 200 mls/hr IV.SIG Q8H [facility] Rx#:[id number] MVI-12 Inj 10 ML Thiamine Inj 511.2 / 511.2 100 MG Folvite Inj 1 MG In 1/2 Normal Saline Inj 500 ML @ 127. 8 mls/hr IV.SIG DAILY [facility] Rx#: [id number] Oral 600 / 600 120 / 120 Other: # Voids 1 # Incontinent Voids 3 # Bowel Movements 0 # Incontinent Bowel Movements 1 Narrative: GENERAL: 73-year-old male, disoriented. Anxious SKIN: Warm and dry. HEAD: Atraumatic. Normocephalic. EYES: Pupils equal and round. No scleral icterus. No injection or drainage. ENT: No nasal bleeding or discharge. Mucous membranes pink and moist. NECK: Trachea midline. No JVD. CARDIOVASCULAR: Regular rate and rhythm. RESPIRATORY: No accessory muscle use. Clear to auscultation. Breath sounds equal bilaterally. GASTROINTESTINAL: Abdomen soft, normoactive bowel sounds, nontender. Hepatic and splenic margins not palpable. MUSCULOSKELETAL: Extremities without clubbing, cyanosis, or edema. No obvious deformities. NEUROLOGICAL: Awake, oriented x 2. Following commands, no focal deficits. PSYCHIATRIC: Disoriented Results - Labs CBC & Chem 7: 02/06/18 07:08 02/08/18 06:19 Laboratory Results - last 24 hr 02/09/18 02/09/18 02/09/18 12:45 16:57 19:35 POC Glucose 101 105 133 H 02/10/18 08:11 POC Glucose 98 Assessment and Plan - Assessment (1) Sepsis Code(s): A41.9 - Sepsis, unspecified organism Status: Acute (2) Acute metabolic encephalopathy Code(s): G93.41 - Metabolic encephalopathy Status: Acute (3) Dementia Code(s): F03.90 - Unspecified dementia without behavioral disturbance Status: Acute (4) UTI (urinary tract infection) Code(s): N39.0 - Urinary tract infection, site not specified Status: Acute - Plan 73-year-old male with a history of Parkinson's, hyperlipidemia, hypertension, prostate cancer and diet-controlled diabetes, possible underlying dementia who was brought to the ED for evaluation of frequent urination and difficulty walking. Urology has evaluated the patient, recommended medical management, signed off. sepsis likely secondary to bacteremia Sepsis element resolved. -Urine culture is negative -1/2 Blood culture from 02/02 + for E. coli -Continue aztreonam for 10 days (started on 02/02) -UA repeated yesterday per ID recommendations, improved. No culture indicated Gram-negative bacteremia Continue aztreonam total 10 days -Repeat blood cultures negative so far Appreciate ID input Acute metabolic encephalopathy likely multifactorial. Briana called 02/04. Patient has possible underlying dementia, stopped taking Namenda 1 year ago. Prior history of heavy alcohol use, does not believe that he drinks anymore however other family members believe that he may still be drinking. Possible EtOH withdrawal Ammonia level normal. CT of the head negative, no acute findings Much more improved today, awake, and oriented EEG shows moderate encephalopathy, MRI of the brain negative. Appreciate neurology input, likely multifactorial, sepsis. Seizure precautions Continue with Ativan as needed -TSH mildly elevated, ok free T4. Poss. subclinical hypothyroid. B12 399, was given 1000 micrograms IM x 2 -continue Seroquel 12.5 mg po bid. -continue with thiamine and Folic acid Rhabdomyolysis, likely secondary to increased agitation. Initial CPK 1413 Anion gap acidosis CO 2 19.6 Continue with cautious hydration CPK trending down, 664 -renal function stable Abdomen distended, mucus in stools xray done-Distended small and large bowel without an obvious pattern or evidence of obstruction -cont. with diet -monitor for aspiration -Discontinued IV fluids. Snoring, patient at times stops breathing. Patient likely has component of sleep apnea endorses heavy snoring at home Will need workup as outpatient Monitor sats Continue with oxygen at 2 L Weakness/unable to ambulate, most likely related to urosepsis -Out of bed with PT PT recommends SNF Hypertension, chronic -Continue Norvas Diabetes patient and states diet controlled -Stable, diet controlled -Monitor Accu-Cheks before meals and at bedtime Parkinson's, chronic Possible underlying dementia-patient was on Namenda at one point which he stopped taking a year ago -Continue Sinemet History of prostate cancer Recent urological procedure, had placement of seeds -appreciate urology input Continue with Flomax DVT prophylaxis: Heparin Case management following DC on 02/12 to [facility] Code Status: Full code Discussed Condition With: RN, pt, CM Discharge Planning: Plan to discharge to [facility] on 02/12 when abx completed. (1) Sepsis Qualifiers: Sepsis type: Escherichia coli Qualified Code(s): A41.51 - Sepsis due to Escherichia coli [E. coli] (3) Dementia Qualifiers: Dementia type: unspecified type Dementia behavioral disturbance: with behavioral disturbance Qualified Code(s): F03.91 - Unspecified dementia with behavioral disturbance (4) UTI (urinary tract infection) Qualifiers: Hematuria presence: without hematuria
[2018-02-10] MEDS: amLODIPine 5 MG Tablet PO SCH (10:00)
[2018-02-10] MEDS: Folic Acid 1 MG Tablet PO SCH (10:00)
[2018-02-10] MEDS: QUEtiapine 25 MG Tablet PO SCH ×2 (10:01→21:46)
--- NOTE | 2018-02-10 12:18 | P.PNID ---
Subjective Remarks: Patient alert. Speech is coherent. Notes that he feels okay. Afebrile. Just had physical therapy. Noted to be unsteady on the feet. 73-year-old white male who presented to the emergency department with respiratory symptoms. The patient was recently diagnosed with prostate cancer, and approximately 5 days ago, he underwent seed placement for treatment of the prostate cancer by his urologist. He reportedly developed difficulty walking yesterday evening and he was having frequent urination, and was brought to the emergency department for evaluation. The patient states that he was having shortness of breath. He is not a good historian and therefore, information is obtained from the medical record. The patient had a temperature of 102.9 degrees and white count was elevated at 16.2. Urinalysis was obtained and showed 88 white cells. This consultation is requested because of sepsis. Past Medical History: PAST MEDICAL HISTORY: Diabetes mellitus, hypertension, hyperlipidemia, benign prostatic hyperplasia, Parkinson's disease, prostate cancer, history of hernia repair, history of carpal tunnel repair. Allergies/Adverse Reactions: Allergies penicillin G Allergy (Severe, Unverified 02/02/18 00:38) Hives Objective Vital Signs 02/09/18 16:00 02/09/18 20:00 02/09/18 20:15 Temperature 98.1 F 97.4 F L Pulse Rate 82 88 84 Respiratory Rate 18 22 Blood Pressure 146/91 H 121/81 Pulse Oximetry 95 94 L 02/09/18 23:58 02/10/18 00:00 02/10/18 03:53 Temperature 98.2 F Pulse Rate 85 90 84 Respiratory Rate 22 Blood Pressure 147/83 H Pulse Oximetry 95 02/10/18 04:00 02/10/18 08:00 Temperature 99.0 F 98.1 F Pulse Rate 95 H 83 Respiratory Rate 22 18 Blood Pressure 134/94 H 160/85 H Pulse Oximetry 94 L 93 L Intake & Output 02/09/18 02/10/18 02/10/18 18:59 06:59 18:59 Intake Total 1311.2 / 1311.2 220 / 220 Balance 1311.2 / 1311.2 220 / 220 Intake: IV 711.2 / 711.2 100 / 100 Azactam Inj 2 GM In NS Inj 100 200 / 200 100 / 100 ML @ 200 mls/hr IV.SIG Q8H [facility] Rx#:[id number] MVI-12 Inj 10 ML Thiamine Inj 511.2 / 511.2 100 MG Folvite Inj 1 MG In 1/2 Normal Saline Inj 500 ML @ 127. 8 mls/hr IV.SIG DAILY [facility] Rx#: [id number] Oral 600 / 600 120 / 120 Other: # Voids 1 # Incontinent Voids 3 # Bowel Movements 0 # Incontinent Bowel Movements 1 02/03/18 13:40 Blood - Peripheral Aerobic Blood Culture - Final No growth in 5 days 02/03/18 13:40 Blood - Peripheral Anaerobic Blood Culture - Final No growth in 5 days 02/03/18 13:35 Blood - Peripheral Aerobic Blood Culture - Final No growth in 5 days 02/03/18 13:35 Blood - Peripheral Anaerobic Blood Culture - Final No growth in 5 days 02/02/18 01:44 Blood - Peripheral Aerobic Blood Culture - Final No growth in 5 days 02/02/18 01:44 Blood - Peripheral Anaerobic Blood Culture - Final No growth in 5 days 02/02/18 01:35 Blood - Peripheral Aerobic Blood Culture - Final No growth in 5 days 02/02/18 01:35 Blood - Peripheral Anaerobic Blood Culture - Final Escherichia coli Lab - Chemistry Results 02/08/18 02/08/18 02/09/18 17:32 20:44 07:40 POC Glucose 121 H 121 H 103 02/09/18 02/09/18 02/09/18 12:45 16:57 19:35 POC Glucose 101 105 133 H 02/10/18 02/10/18 08:11 11:14 POC Glucose 98 129 H Imaging: ITS Impressions Abdomen/Pelvis CT 02/02/18 01:30 CONCLUSION: 1. Fat-containing left inguinal hernia. 2. Mild prostate enlargement with metallic localization seeds. Chest X-Ray 02/02/18 01:30 CONCLUSION: The appearance of the lungs is similar to September 2017 with some mild bilateral perihilar thickening. No peripheral infiltrates seen. Head CT 02/04/18 22:20 CONCLUSION: No acute intracranial abnormality demonstrated. . Head MRI 02/05/18 00:00 CONCLUSION: 1. No acute hemorrhage, mass or stroke. Abdomen X-Ray 02/06/18 00:00 CONCLUSION: Distended small and large bowel without an obvious pattern or evidence of obstruction Physical Exam: PHYSICAL EXAMINATION: GENERAL: Patient is more alert. HEENT: Head is atraumatic. Extraocular muscles are grossly intact. Pupils reactive to light. No icterus. Oropharynx moist mucosa without lesions. NECK: Supple without adenopathy. LUNGS: Breath sounds are clear. HEART: Regular S1, S2. No murmurs, rubs or gallops. ABDOMEN: Bowel sounds present, soft. EXTREMITIES: No clubbing, cyanosis or edema. SKIN: No rash. The skin has a red hue. NEUROLOGIC: No gross focal findings. speech weak. PSYCHIATRIC: Calm and cooperative. Assessment and Plan - Plan IMPRESSION: 1. Urinary tract infection. The patient is status post prostate seed placement. Repeat urine culture has no growth. 2. E. coli Sepsis. Patient appears to be clinically responding. His white blood cell count is normal. He has no fever. Repeat blood cultures are negative. 3. Altered mental status, likely secondary to sepsis. waxing and waning. 4. Distended abdomen. ? ileus. RECOMMENDATIONS: 1. Continue aztreonam to complete on 02/12/2018. 2. Monitor clinical status. I will sign off now. Discussed with primary.
[2018-02-11] MEDS: Aztreonam Inj 2 GM in Sodium Chloride 0.9% Inj 100 ML IV.SIG SCH ×3 (02:09→17:53)
[2018-02-11] MEDS: Heparin - SQ 10,000 UNITS/ML Vial SQ SCH ×2 (06:08→17:54)
[2018-02-11] MEDS: QUEtiapine 25 MG Tablet PO SCH ×2 (09:00→22:50)
[2018-02-11] MEDS: Folic Acid 1 MG Tablet PO SCH (09:01)
[2018-02-11] MEDS: amLODIPine 5 MG Tablet PO SCH (09:01)
--- NOTE | 2018-02-11 14:55 | P.PN ---
Subjective Interval history: Follow-up sepsis/UTI February 11, 2018-patient seen and examined, confused, however vital stable. Physical Exam Vital signs: Vital Signs 02/10/18 16:00 02/10/18 20:00 02/11/18 00:00 Temperature 98.5 F 98.1 F 98.8 F Pulse Rate 85 83 72 Respiratory Rate 18 20 17 Blood Pressure 151/90 H 142/89 H 112/71 Pulse Oximetry 93 L 96 94 L 02/11/18 04:00 02/11/18 08:00 02/11/18 12:00 Temperature 97.5 F L 97.6 F 98.2 F Pulse Rate 74 79 81 Respiratory Rate 18 21 20 Blood Pressure 165/98 H 131/87 118/82 Pulse Oximetry 96 96 95 Intake & Output 02/10/18 02/11/18 02/11/18 18:59 06:59 18:59 Intake Total 572 / 572 440 / 440 100 / 100 Balance 572 / 572 440 / 440 100 / 100 Weight 86.5 kg Intake: IV 100 / 100 200 / 200 100 / 100 Azactam Inj 2 GM In NS Inj 100 100 / 100 200 / 200 100 / 100 ML @ 200 mls/hr IV.SIG Q8H [facility] Rx#:[id number] Oral 472 / 472 240 / 240 Other: # Voids 3 # Incontinent Voids 1 # Urine Diapers 3 Date of Last Bowel Movement 02/10/18 02/10/18 02/10/18 # Incontinent Bowel Movements 2 Narrative: GENERAL: 73-year-old male, disoriented and confused SKIN: Warm and dry. HEAD: Atraumatic. Normocephalic. EYES: Pupils equal and round. No scleral icterus. No injection or drainage. ENT: No nasal bleeding or discharge. Mucous membranes pink and moist. NECK: Trachea midline. No JVD. CARDIOVASCULAR: Regular rate and rhythm. RESPIRATORY: No accessory muscle use. Clear to auscultation. Breath sounds equal bilaterally. GASTROINTESTINAL: Abdomen soft, normoactive bowel sounds, nontender. Hepatic and splenic margins not palpable. MUSCULOSKELETAL: Extremities without clubbing, cyanosis, or edema. No obvious deformities. NEUROLOGICAL: Awake, oriented x 2. Following commands, no focal deficits. PSYCHIATRIC: Disoriented Results - Labs CBC & Chem 7: 02/06/18 07:08 02/08/18 06:19 Laboratory Results - last 24 hr 02/10/18 02/10/18 17:47 20:24 POC Glucose 107 137 H Assessment and Plan - Assessment (1) Sepsis Code(s): A41.9 - Sepsis, unspecified organism Status: Acute (2) Acute metabolic encephalopathy Code(s): G93.41 - Metabolic encephalopathy Status: Acute (3) Dementia Code(s): F03.90 - Unspecified dementia without behavioral disturbance Status: Acute (4) UTI (urinary tract infection) Code(s): N39.0 - Urinary tract infection, site not specified Status: Acute - Plan 73-year-old man with sepsis likely secondary to bacteremia Sepsis element resolved. -Continue aztreonam until February 12, 2018 Gram-negative bacteremia Continue aztreonam until February 12, 2018 Acute metabolic encephalopathy likely multifactorial. EEG shows moderate encephalopathy, MRI of the brain negative. Appreciate neurology input, likely multifactorial, sepsis. Seizure precautions Continue with Ativan as needed -TSH mildly elevated -continue Seroquel 12.5 mg po bid. -continue with thiamine and Folic acid Rhabdomyolysis, likely secondary to increased agitation. Improving Anion gap acidosis CO 2 19.6 Continue with cautious hydration Abdomen distended, mucus in stools xray done-Distended small and large bowel without an obvious pattern or evidence of obstruction -monitor for aspiration ELISHA? Patient likely has component of sleep apnea Will need workup as outpatient Monitor sats Continue with oxygen at 2 L Weakness/unable to ambulate, most likely related to urosepsis -Out of bed with PT PT recommends SNF Hypertension, chronic -Continue Norvas Diabetes patient and states diet controlled -Stable, diet controlled -Monitor Accu-Cheks before meals and at bedtime Parkinson's, chronic Possible underlying dementia-patient was on Namenda at one point which he stopped taking a year ago -Continue Sinemet History of prostate cancer Recent urological procedure, had placement of seeds -appreciate urology input Continue with Flomax DVT prophylaxis: Heparin (1) Sepsis Qualifiers: Sepsis type: Escherichia coli Qualified Code(s): A41.51 - Sepsis due to Escherichia coli [E. coli] (3) Dementia Qualifiers: Dementia type: unspecified type Dementia behavioral disturbance: with behavioral disturbance Qualified Code(s): F03.91 - Unspecified dementia with behavioral disturbance (4) UTI (urinary tract infection) Qualifiers: Hematuria presence: without hematuria
[2018-02-12] MEDS: Aztreonam Inj 2 GM in Sodium Chloride 0.9% Inj 100 ML IV.SIG SCH ×2 (01:48→10:18)
[2018-02-12] MEDS: Heparin - SQ 10,000 UNITS/ML Vial SQ SCH (06:02)
[2018-02-12] MEDS: QUEtiapine 25 MG Tablet PO SCH (09:39)
[2018-02-12] MEDS: Folic Acid 1 MG Tablet PO SCH (09:40)
[2018-02-12] MEDS: amLODIPine 5 MG Tablet PO SCH (09:40)
--- NOTE | 2018-02-12 09:56 | P.PN ---
Subjective Interval history: Follow-up sepsis/UTI February 11, 2018-patient seen and examined, confused, however vital stable. February 12, 2018-patient seen and examined, much more alert today and oriented to self and place. Afebrile. Physical Exam Vital signs: Vital Signs 02/11/18 12:00 02/11/18 16:00 02/11/18 20:00 Temperature 98.2 F 98 F 98.3 F Pulse Rate 79 85 82 Respiratory Rate 20 22 20 Blood Pressure 118/82 118/84 147/96 H Pulse Oximetry 95 93 L 95 02/12/18 00:00 02/12/18 04:00 02/12/18 08:00 Temperature 98 F 98.1 F 97 F L Pulse Rate 105 H 77 75 Respiratory Rate 18 18 22 Blood Pressure 120/91 H 117/81 144/89 H Pulse Oximetry 94 L 95 96 Intake & Output 02/11/18 02/12/18 02/12/18 18:59 06:59 18:59 Intake Total 320 / 320 100 / 100 Balance 320 / 320 100 / 100 Weight 84.1 kg Intake: IV 200 / 200 100 / 100 Azactam Inj 2 GM In NS Inj 100 200 / 200 100 / 100 ML @ 200 mls/hr IV.SIG Q8H [facility] Rx#:[id number] Oral 120 / 120 0 / 0 Other: # Incontinent Voids 3 # Urine Diapers 4 Date of Last Bowel Movement 02/10/18 03/05/18 # Bowel Movements 0 Narrative: GENERAL: 73-year-old male, NAD SKIN: Warm and dry. HEAD: Atraumatic. Normocephalic. EYES: Pupils equal and round. No scleral icterus. No injection or drainage. ENT: No nasal bleeding or discharge. Mucous membranes pink and moist. NECK: Trachea midline. No JVD. CARDIOVASCULAR: Regular rate and rhythm. RESPIRATORY: No accessory muscle use. Clear to auscultation. Breath sounds equal bilaterally. GASTROINTESTINAL: Abdomen soft, normoactive bowel sounds, nontender. Hepatic and splenic margins not palpable. MUSCULOSKELETAL: Extremities without clubbing, cyanosis, or edema. No obvious deformities. NEUROLOGICAL: Awake, oriented x 2. Following commands, no focal deficits. Results - Labs CBC & Chem 7: 02/06/18 07:08 02/08/18 06:19 Laboratory Results - last 24 hr 02/11/18 02/12/18 20:41 07:47 POC Glucose 119 H 99 Assessment and Plan - Assessment (1) Sepsis Code(s): A41.9 - Sepsis, unspecified organism Status: Acute (2) Acute metabolic encephalopathy Code(s): G93.41 - Metabolic encephalopathy Status: Acute (3) Dementia Code(s): F03.90 - Unspecified dementia without behavioral disturbance Status: Acute (4) UTI (urinary tract infection) Code(s): N39.0 - Urinary tract infection, site not specified Status: Acute - Plan 73-year-old man with sepsis likely secondary to bacteremia Sepsis element resolved. -Continue aztreonam until today February 12, 2018 Gram-negative bacteremia Continue aztreonam until today February 12, 2018 Acute metabolic encephalopathy likely multifactorial-improving EEG shows moderate encephalopathy, MRI of the brain negative. Appreciate neurology input, likely multifactorial, sepsis. Seizure precautions Continue with Ativan as needed -TSH mildly elevated -continue Seroquel 12.5 mg po bid. -continue with thiamine and Folic acid Rhabdomyolysis, likely secondary to increased agitation. Improving Anion gap acidosis CO 2 19.6 Continue with cautious hydration Abdomen distended, mucus in stools xray done-Distended small and large bowel without an obvious pattern or evidence of obstruction -monitor for aspiration ELISHA? Patient likely has component of sleep apnea Will need workup as outpatient Monitor sats Continue with oxygen at 2 L Weakness/unable to ambulate, most likely related to urosepsis -Out of bed with PT PT recommends SNF Hypertension, chronic -Continue Norvasc Diabetes patient and states diet controlled -Stable, diet controlled -Monitor Accu-Cheks before meals and at bedtime Parkinson's, chronic Possible underlying dementia-patient was on Namenda at one point which he stopped taking a year ago -Continue Sinemet History of prostate cancer Recent urological procedure, had placement of seeds -appreciate urology input Continue with Flomax DVT prophylaxis: Heparin (1) Sepsis Qualifiers: Sepsis type: Escherichia coli Qualified Code(s): A41.51 - Sepsis due to Escherichia coli [E. coli] (3) Dementia Qualifiers: Dementia type: unspecified type Dementia behavioral disturbance: with behavioral disturbance Qualified Code(s): F03.91 - Unspecified dementia with behavioral disturbance (4) UTI (urinary tract infection) Qualifiers: Hematuria presence: without hematuria
--- NOTE | 2018-02-12 14:13 | P.DS ---
Date of admission: 02/02/18 04:09 Primary care physician: Wiley Cotto MD Brief History from admission: 73-year-old male with a history of Parkinson's, hyperlipidemia, hypertension, prostate cancer and diet-controlled diabetes who was brought to the ED for evaluation of frequent urination and difficulty walking. Patient is a poor historian. History is taken from the who also may have underlying dementia. states on Saturday he had prostate seeds placed and his urologist and yesterday she noticed that he was having difficulty walking and having frequent urination. Patient does complain of dysuria and very frequent urination. Upon arrival patient was found to have a rectal temperature of 102.8. DS: Diagnosis - Discharge Diagnosis (1) Sepsis Status: Acute (2) Acute metabolic encephalopathy Status: Acute (3) Dementia Status: Acute (4) UTI (urinary tract infection) Status: Acute DS: Summary Hospital Course: While in the hospital, the patient was treated for: sepsis likely secondary to bacteremia Treated with aztreonam and completed treatment on February 12, 2018 Gram-negative bacteremia Treated with aztreonam and completed treatment on February 12, 2018 Acute metabolic encephalopathy likely multifactorial-improving EEG shows moderate encephalopathy, MRI of the brain negative. Appreciate neurology input, likely multifactorial, sepsis. Seizure precautions -treated with Seroquel 12.5 mg po bid, thiamine and Folic acid Rhabdomyolysis, likely secondary to increased agitation. Improved with IVF hydration Abdomen distended, mucus in stools xray done-Distended small and large bowel without an obvious pattern or evidence of obstruction -monitor for aspiration ELISHA? Patient likely has component of sleep apnea Will need workup as outpatient Monitor sats Continue with oxygen at 2 L Weakness/unable to ambulate, most likely related to urosepsis -Out of bed with PT PT recommends SNF Hypertension, chronic -Treated with Norvasc Diabetes patient and states diet controlled -Stable, diet controlled -Monitor Accu-Cheks before meals and at bedtime Parkinson's, chronic Possible underlying dementia-patient was on Namenda at one point which he stopped taking a year ago -Treatment with Sinemet was initiated History of prostate cancer Recent urological procedure, had placement of seeds -appreciate urology input treated with Flomax DVT prophylaxis: Heparin - Time Spent with Patient Total time spent providing and/or coordinating discharge services: Greater than 30 minutes - Quality: VTE Deep Vein Thrombosis/Pulmonary Embolism Present on Admission: No Exam Vital signs: Vital Signs 02/11/18 16:00 02/11/18 20:00 02/12/18 00:00 Temperature 98 F 98.3 F 98 F Pulse Rate 85 82 105 H Respiratory Rate 22 20 18 Blood Pressure 118/84 147/96 H 120/91 H Pulse Oximetry 93 L 95 94 L 02/12/18 04:00 02/12/18 08:00 02/12/18 12:00 Temperature 98.1 F 97 F L Pulse Rate 77 76 71 Respiratory Rate 18 22 Blood Pressure 117/81 144/89 H Pulse Oximetry 95 96 02/12/18 13:04 02/12/18 13:09 Temperature 97.5 F L Pulse Rate 77 77 Respiratory Rate 18 18 Blood Pressure 107/64 107/64 Pulse Oximetry 94 L 77 L Intake & Output 02/11/18 02/12/18 02/12/18 18:59 06:59 18:59 Intake Total 320 / 320 100 / 100 100 / 100 Balance 320 / 320 100 / 100 100 / 100 Weight 84.1 kg Intake: IV 200 / 200 100 / 100 100 / 100 Azactam Inj 2 GM In NS Inj 100 200 / 200 100 / 100 100 / 100 ML @ 200 mls/hr IV.SIG Q8H NOEMY Rx#:[id number] Oral 120 / 120 0 / 0 Other: # Incontinent Voids 3 # Urine Diapers 4 Date of Last Bowel Movement 02/10/18 03/05/18 # Bowel Movements 0 Narrative: GENERAL: 73-year-old male, NAD SKIN: Warm and dry. HEAD: Atraumatic. Normocephalic. EYES: Pupils equal and round. No scleral icterus. No injection or drainage. ENT: No nasal bleeding or discharge. Mucous membranes pink and moist. NECK: Trachea midline. No JVD. CARDIOVASCULAR: Regular rate and rhythm. RESPIRATORY: No accessory muscle use. Clear to auscultation. Breath sounds equal bilaterally. GASTROINTESTINAL: Abdomen soft, normoactive bowel sounds, nontender. Hepatic and splenic margins not palpable. MUSCULOSKELETAL: Extremities without clubbing, cyanosis, or edema. No obvious deformities. NEUROLOGICAL: Awake, oriented x 2. Following commands, no focal deficits. Results Procedures completed during hospitalization: none Labs on day of discharge: Labs from last 24 hours 02/12/18 02/12/18 02/11/18 12:15 07:47 20:41 POC Glucose 111 H 99 119 H - Impressions ITS Impressions Abdomen/Pelvis CT 02/02/18 01:30 CONCLUSION: 1. Fat-containing left inguinal hernia. 2. Mild prostate enlargement with metallic localization seeds. Chest X-Ray 02/02/18 01:30 CONCLUSION: The appearance of the lungs is similar to September 2017 with some mild bilateral perihilar thickening. No peripheral infiltrates seen. Head CT 02/04/18 22:20 CONCLUSION: No acute intracranial abnormality demonstrated. . Head MRI 02/05/18 00:00 CONCLUSION: 1. No acute hemorrhage, mass or stroke. Abdomen X-Ray 02/06/18 00:00 CONCLUSION: Distended small and large bowel without an obvious pattern or evidence of obstruction Discharge Plan - Discharge Disposition Patient Disposition: [facility] Inpatient - Discharge Condition Condition: Stable - Discharge Order Discharge Orders: Discharge Order (Routine); Ordered 02/12/18 Ordered By: Kelley Lawson - Discharge Details Anticipated Discharge Date: 02/12/18 - Physicians Team Primary Care Provider: Wiley Cotto Attending Provider: Jay Langley Other Providers: Geovanny Cordero MD ; Rodríguez Agudelo MD ; [employer] ; [facility] [place] ; Eulogio Jones MD, PhD
== END 2018-02-12 13:45 ==
LOC: NEPE 00:33 → NEDA 04:09 → N04 05:03
PROVIDERS: ADMIT Hospitalist; ATTEND Hospitalist